=== PATIENT | male | born 1970 | race Caucasian/White ===

== ENCOUNTER 2017-06-21 10:17 | Inpatient (IN) | payer BC, OTHER ==
[~2017-06-21] VITALS: Ht 188 cm; Wt 87.8 kg
[2017-06-21] MEDS ORDERED: ONDANSETRON HCL INJ 2 MG/ML VIAL IV STA (10:36)
[2017-06-21] MEDS ORDERED: SODIUM CHLORIDE 0.9% 1000ML 1,000 ML IV STA (10:36)
[2017-06-21] MEDS ORDERED: MORPHINE SULFATE 4 MG/ML SYR IV STA (10:36)
[2017-06-21 10:49] LABS: BASOPHILS % 0.2 % (0.0-1.0); EOSINOPHILS % 0.4 % (0.0-6.0); HEMATOCRIT 29.4 % (38.2-49.6); HEMOGLOBIN 7.2 g/dL (14.0-18.0); LYMPHOCYTES # (AUTO) 0.9 (1.0-3.2); LYMPHOCYTES % 8.6 % (18.0-39.1); MEAN CORPUSCULAR HEMOGLOBIN 15.5 pg (28-32); MEAN CORPUSCULAR HGB CONC 24.5 g/dL (31-35); MEAN CORPUSCULAR VOLUME 63.2 fL (81-99); MONOCYTES # (AUTO) 1.5 (0.2-0.8); MONOCYTES % 13.9 % (4.4-11.3); NEUTROPHILS % 76.2 % (38.7-80.0); PLATELET COUNT 569 x10e3/uL (140-360); RED BLOOD COUNT 4.65 x10e6/uL (4.3-5.7); RED CELL DISTRIBUTION WIDTH 24.2 % (11.7-14.4)
[2017-06-21 10:55] LABS: INR 1.12
[2017-06-21] MEDS ORDERED: DIATRIZOATE MEGL/DIATRIZOA SOD 30 ML BTL PO ONE (11:00)
[2017-06-21 11:02] LABS: ALANINE AMINOTRANSFERASE 25 IU/L (0-55); ALBUMIN 2.5 g/dL (3.5-5.0); ALBUMIN/GLOBULIN RATIO 0.6 (0.8-2.0); ALKALINE PHOSPHATASE 80 IU/L (40-150); ANION GAP 14.1 mmol/L (8-16); BLOOD UREA NITROGEN 16 mg/dL (7-26); BUN/CREATININE RATIO 17 (6-25); CALCIUM 8.1 mg/dL (8.4-10.2); CARBON DIOXIDE 23 mmol/L (22-29); CHLORIDE 99 mmol/L (98-107); CREATININE, SERUM 0.95 mg/dL (0.72-1.25); EST GLOMERULAR FILTRATION RATE > 60 ML/MIN (60-); GLUCOSE 104 mg/dL (74-118); LIPASE 5 U/L (8-78); POTASSIUM 4.1 mmol/L (3.5-5.1); SODIUM 132 mmol/L (136-145)
[2017-06-21] MEDS ORDERED: PIPER-TAZ 3.375 GM 50 ML IV STA (11:39)
[2017-06-21] MEDS ORDERED: MORPHINE SULFATE 5 MG/ML VIAL IV SCH (12:30)
--- NOTE | 2017-06-21 12:56 | Diagnostic Imaging Report ---
EXAM: CT Abdomen and Pelvis WITH contrast INDICATION: \S\abdominal pain, diverticulitis \[id number] \S\1203 \S\N COMPARISON: None available. TECHNIQUE: Abdomen and pelvis were scanned utilizing a multidetector helical scanner from the lung base to the pubic symphysis after administration of IV contrast. Coronal and sagittal reformations were obtained. Routine protocol was performed. Scan was performed when during portal venous phase. IV CONTRAST: 100 mL of Isovue-370 ORAL CONTRAST: Gastroview COMPLICATIONS: None RADIATION DOSE: Total DLP: 554.32 mGy*cm Estimated effective dose: (DLP x 0.015 x size factor) mSv CTDIvol has been reviewed. It is below the limits set by the Radiation Protocol Committee (RPC). FINDINGS: LINES and TUBES: None. LOWER THORAX: Bibasilar atelectasis. Trace pericardial fluid. HEPATOBILIARY: 0.9 cm left hepatic lobe cyst. No focal hepatic lesions. No biliary ductal dilation. GALLBLADDER: No radio-opaque stones or sludge. No wall thickening. SPLEEN: Splenomegaly. PANCREAS: No focal masses or ductal dilatation. ADRENALS: No adrenal nodules KIDNEYS/URETERS: Kidneys enhance symmetrically. No hydronephrosis. No cystic or solid mass lesions. No stones. GI TRACT: Significant distention of the entire colon with loss of haustral markings, measuring up to 8.3 cm with abrupt narrowing at the high rectal area (series 2, image 80). The remainder of the rectum also shows wall thickening. Small hiatal hernia with contrast in distal esophagus, suggestive of gastroesophageal reflux. PELVIC ORGANS/BLADDER: Unremarkable. LYMPH NODES: Prominent retroperitoneal lymph nodes. For example 1.1 cm and 1.2 cm left para-aortic lymph nodes (series 2, images 43 and 45). There are also enlarged peripancreatic lymph nodes, measuring up to 1.1 cm (series 2, image 35). Multiple mesorectal/presacral lymph nodes, the largest measuring 1.3 cm (series 2, image 75 and series 301 image 73). VESSELS: Unremarkable. PERITONEUM / RETROPERITONEUM: No free air. Trace abdominal ascites. BONES: Bilateral L5 pars defects with grade 1 L5-S1 spondylolisthesis. SOFT TISSUES: Unremarkable. IMPRESSION: 1. Significant distention of entire colon with narrowing at the high rectal area. Differentials include toxic megacolon (considering history of inflammatory bowel disease), colonic ileus, and partial obstruction from rectal mass. There is rectal wall thickening and suspected mesorectal and retroperitoneal lymph nodes. 2. Trace abdominal ascites and pericardial effusion. Findings discussed with Dr. Hu at 12:50 PM, on 06/21/2017. Signed by: Dr. William Grande MD on 06/21/2017 12:53 PM
[2017-06-21] MEDS ORDERED: IOPAMIDOL 370 MG/ML 200 ML INFUS..BTL INJ ONE (13:47)
[2017-06-21] MEDS ORDERED: SODIUM CHLORIDE 0.9% 50ML 50 ML ONE (13:47)
[2017-06-21] MEDS ORDERED: MORPHINE SULFATE 5 MG/ML VIAL IV ONE (14:00)
[2017-06-21] MEDS ORDERED: MORPHINE SULFATE 2 MG/ML SYR IV PRN (14:15)
[2017-06-21] MEDS ORDERED: PROMETHAZINE HCL (IM) 25 MG/ML VIAL IV PRN (14:15)
[2017-06-21] MEDS ORDERED: SODIUM CHLORIDE FLUSH 10 ML SYR INJ PRN (14:15)
[2017-06-21] MEDS ORDERED: MORPHINE SULFATE 5 MG/ML VIAL IV PRN (14:30)
[2017-06-21] MEDS ORDERED: SODIUM CHLORIDE 0.9% 100 ML 100 ML ONE (17:28)
[2017-06-21] MEDS: METRONIDAZOLE 500MG/NS 100ML 100 ML IV SCH (17:52)
[2017-06-21] MEDS: SODIUM CHLORIDE 0.9% 1000ML 1,000 ML IV SCH (17:52)
[2017-06-21] MEDS: METHYLPREDNISOLONE SOD SUCC 40 MG/ML VIAL IV SCH (17:52)
[2017-06-21] MEDS ORDERED: PEG (High)/E-LYTE SOLN 4,000 ML BTL PO NR (18:00)
[2017-06-21 18:01] LABS: BILIRUBIN,URINE NEGATIVE (NEGATIVE); KETONES,URINE TRACE (NEGATIVE); LEUKOCYTE ESTERASE ,URINE NEGATIVE (NEGATIVE); NITRITE,URINE NEGATIVE (NEGATIVE); PROTEIN,URINE DIPSTICK NEGATIVE (NEGATIVE); URINE UROBILINOGEN 0.2 mg/dL (0.2 - 1)
[2017-06-21 18:02] LABS: CLARITY,URINE CLEAR (CLEAR); COLOR,URINE STRAW (YELLOW)
[2017-06-21] MEDS: CIPROFLOXACIN 400 MG/D5W 200ML 200 ML IV SCH (18:36)
--- NOTE | 2017-06-21 20:49 | Consultation ---
DATE OF CONSULTATION: June 21, 2017 GASTROENTEROLOGY CONSULTATION REFERRING PHYSICIAN: Dr. Hu REASON FOR CONSULTATION: Colitis, abnormal CT of colon. HISTORY OF PRESENT ILLNESS: Mr. Miller is a very pleasant 47-year-old man with longstanding history of ulcerative colitis. He previously followed with Dr. Galan and was last seen in 2013. At that time, he had a colonoscopy, which could not pass roughly 50 cm due to a stricture. Biopsies were concerning for possible high-grade dysplasia. He was referred for colectomy. He says he saw oncologist, as well as a colorectal surgeon and they recommended monitoring as a possibility per his report. Since then, he has been off of medications and has not followed up with his manufacturing quality manager. He has been managing just by diet. He reports his baseline is usually 3 to 4 stools daily, but he has never had blood in his stool. His abdomen became swollen for 3 days the 1st week of April, but resumed its normal habitus spontaneously. He was doing well per his report until roughly a week ago. Last week, his abdomen became swollen. He had developed some lower abdominal pain, which was mild roughly 3 to 4 out of 10 on the pain scale. He says he did not feel pain acutely. He has been eating very little and has been having fewer bowel movements well. Stools are liquid. Still passes gas. He thinks he has lost weight maybe about 10 lbs in the past week. He denies any fevers, chills or sweats. He has not been having any significant diarrhea. He, otherwise, has been in his usual self without any extra intestinal manifestations of inflammatory bowel disease. PAST MEDICAL HISTORY: Ulcerative colitis diagnosed when he was 17. He believed at first it was limited to the left side and then, later became pancolitis. He has been on prednisone, Asacol, and Rowasa enemas in the past, but nothing since 2013. He is near sighted. 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 SOCIAL HISTORY: No alcohol, tobacco or illicit substance use. 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 FAMILY HISTORY: Positive for breast cancer in his mother and as well as some sort of digestive issue in a great aunt. MEDICATION AND ALLERGIES: Reviewed. Please see MAR medication reconciliation form. REVIEW OF SYSTEMS: Twelve-system review is positive for that mentioned in HPI, otherwise unremarkable. PHYSICAL EXAM GENERAL: He is pleasant, alert, oriented, in no acute distress. HEENT: Pupils equal, round, reactive to light. NECK: Supple. LUNGS: Clear. CARDIOVASCULAR: S1 S2. ABDOMEN: Soft. Mildly distended. He has some high-pitched tinkling sounds. He is a little bit tender in the lower abdomen, particularly on the left lower quadrant, but there is no rebound, guarding or mass. EXTREMITIES: No clubbing, cyanosis or edema. PSYCH: Calm, cooperative. NEUROLOGIC: Nonfocal. HEM/ONC: No bruising or adenopathy. Electronic health records reviewed for laboratory and radiologic studies as well as history. ASSESSMENT 1. It appears to be a proximal rectal or distal sigmoid strictures, likely the one that was encountered on previous colonoscopy. Question is how much of this is related to inflammatory status, fibrostenotic scar tissue or even underlying malignancy given the history of high-grade dysplasia. His presentation does not seem to be that of Clostridium difficile or toxic megacolon. It is probably a more chronic progressive obstruction. At the current time, will go ahead and place him on antibiotics, as well as steroids to decrease any inflammation that may be related and responsive from the ulcerative colitis. He will need a colonoscopy. If he can tolerate a slow bowel prep over a couple of days would be ideal. Will plan for Dr. Monroy to follow with us. Additionally, will go ahead and check inflammatory markers and stool studies. If he is not passing sufficient stools and gas will need to be NPO with just enema prep. 2. Anemia, microcytic: I suspect he has iron-deficiency anemia. Will check iron studies. He may need IV replacement. Thank you very much for asking me to see Mr. Miller. Any questions or concerns, please do not hesitate to contact me. Will follow with you. Job#: [id number] CQ MTDD
[2017-06-21 21:19] VITALS: BP 150/84
[2017-06-21 21:27] VITALS: BP 150/84
[2017-06-21] MEDS: PIPER-TAZ 3.375 GM 50 ML IV SCH (21:50)
[2017-06-21 22:30] VITALS: BP 131/81
[2017-06-22] VITALS (9 sets, daily range): BP systolic 131–156; BP diastolic 69–82
[2017-06-22] MEDS: METRONIDAZOLE 500MG/NS 100ML 100 ML IV SCH ×3 (00:40→17:02)
[2017-06-22] MEDS: METHYLPREDNISOLONE SOD SUCC 40 MG/ML VIAL IV SCH ×5 (00:40→23:45)
[2017-06-22] MEDS: SODIUM CHLORIDE 0.9% 1000ML 1,000 ML IV SCH ×4 (03:37→22:05)
[2017-06-22] MEDS: CIPROFLOXACIN 400 MG/D5W 200ML 200 ML IV SCH ×2 (04:37→17:15)
[2017-06-22] MEDS: PIPER-TAZ 3.375 GM 50 ML IV SCH ×3 (06:12→21:37)
[2017-06-22 06:23] LABS: BASOPHILS % 0.2 % (0.0-1.0); EOSINOPHILS % 0.5 % (0.0-6.0); HEMATOCRIT 22.5 % (38.2-49.6); LYMPHOCYTES # (AUTO) 0.8 (1.0-3.2); LYMPHOCYTES % 12.7 % (18.0-39.1); MEAN CORPUSCULAR HEMOGLOBIN 15.6 pg (28-32); MEAN CORPUSCULAR HGB CONC 24.9 g/dL (31-35); MEAN CORPUSCULAR VOLUME 62.8 fL (81-99); MONOCYTES # (AUTO) 1.3 (0.2-0.8); MONOCYTES % 19.6 % (4.4-11.3); NEUTROPHILS # (AUTO) 4.3 (2.1-6.9); NEUTROPHILS % 66.5 % (38.7-80.0); PLATELET COUNT 376 x10e3/uL (140-360); RED BLOOD COUNT 3.58 x10e6/uL (4.3-5.7); RED CELL DISTRIBUTION WIDTH 23.3 % (11.7-14.4)
[2017-06-22 06:26] LABS: HEMOGLOBIN 5.6 g/dL (14.0-18.0)
[2017-06-22 06:49] LABS: ALANINE AMINOTRANSFERASE 24 IU/L (0-55); ALBUMIN 1.8 g/dL (3.5-5.0); ALBUMIN/GLOBULIN RATIO 0.6 (0.8-2.0); ALKALINE PHOSPHATASE 69 IU/L (40-150); ANION GAP 13.2 mmol/L (8-16); BLOOD UREA NITROGEN 14 mg/dL (7-26); BUN/CREATININE RATIO 18 (6-25); CALCIUM 7.5 mg/dL (8.4-10.2); CARBON DIOXIDE 21 mmol/L (22-29); CHLORIDE 104 mmol/L (98-107); CREATININE, SERUM 0.77 mg/dL (0.72-1.25); EST GLOMERULAR FILTRATION RATE > 60 ML/MIN (60-); GLUCOSE 103 mg/dL (74-118); POTASSIUM 4.2 mmol/L (3.5-5.1); SODIUM 134 mmol/L (136-145)
[2017-06-22 06:59] LABS: HEMOGLOBIN 5.7 g/dL (14.0-18.0)
[2017-06-22 07:17] LABS: % IRON SATURATION 4 % (15-50); IRON 8 ug/dL (65-175); TOTAL IRON BINDING CAPACITY 179 ug/dL (261-478); TRANSFERRIN 128 mg/dL (174-364)
[2017-06-22 07:36] LABS: FERRITIN 7.98 ng/mL (21.81-274.66)
--- NOTE | 2017-06-22 07:44 | Diagnostic Imaging Report ---
PROCEDURE:X-RAY ABDOMEN - KUB COMPARISON:CT abdomen and pelvis 06/21/2017. INDICATIONS:ABDOMINAL PAIN FINDINGS: Dilated fluid filled loops of colon. No air is present in the rectum. There are no calcifications projected over the renal shadows, expected course of the ureters or bladder. There are no acute osseous abnormalities. The lung bases are clear. CONCLUSION: Dilated fluid filled loops of colon may represent a distal colon obstruction. Dictated by: Maximo Watts M.D. on 06/22/2017 at 7:53 Electronically approved by: Maximo Watts M.D. on 06/22/2017 at 7:53
[2017-06-22 07:53] LABS: BAND NEUTROPHILS % (MANUAL) 8 %; EOSINOPHILS % (MANUAL) 1 % (0-7); LYMPHOCYTES % (MANUAL) 9 % (19-48); MONOCYTES % (MANUAL) 17 % (3.4-9.0); NEUTROPHILS % (MANUAL) 63 % (40-74)
[2017-06-22 07:54] LABS: ANISOCYTOSIS MODERATE; ELLIPTOCYTE, RBC SLIGHT; HYPOCHROMASIA MODERATE; PLATELET ESTIMATE ADEQUATE; RBC MORPHOLOGY COMMENT ABNORMAL
[2017-06-22 07:55] LABS: PLATELET MORPHOLOGY COMMENT FEW GIANT; POIKILOCYTOSIS SLIGHT
[2017-06-22] MEDS ORDERED: FAMOTIDINE INJ 20 MG in SODIUM CHLORIDE 0.9% 50ML 50 ML IV ONE (08:45)
[2017-06-22] MEDS ORDERED: DEXAMETHASONE PHOS 10MG INJ 20 MG in SODIUM CHLORIDE 0.9% 50ML 50 ML IV ONE (08:45)
[2017-06-22] MEDS ORDERED: IRON DEXTRAN INJ 50 MG in SODIUM CHLORIDE 0.9% 100 ML IV ONE (08:45)
[2017-06-22] MEDS ORDERED: DIPHENHYDRAMINE HCL INJ 25 MG in SODIUM CHLORIDE 0.9% 50ML 50 ML IV ONE (08:45)
[2017-06-22] MEDS ORDERED: IRON DEXTRAN INJ 500 MG in SODIUM CHLORIDE 0.9% 500ML 500 ML IV PRN (08:45)
[2017-06-22] MEDS ORDERED: ACETAMINOPHEN 325 MG TAB PO PRN (15:30)
[2017-06-23] VITALS (8 sets, daily range): BP systolic 137–151; BP diastolic 73–84
[2017-06-23] MEDS: METRONIDAZOLE 500MG/NS 100ML 100 ML IV SCH ×3 (00:06→16:40)
[2017-06-23] MEDS ORDERED: SODIUM CHLORIDE 0.9% 250ML 250 ML ONE (00:51)
[2017-06-23] MEDS: CIPROFLOXACIN 400 MG/D5W 200ML 200 ML IV SCH ×2 (05:15→16:40)
[2017-06-23] MEDS: METHYLPREDNISOLONE SOD SUCC 40 MG/ML VIAL IV SCH ×3 (05:24→18:38)
[2017-06-23] MEDS: SODIUM CHLORIDE 0.9% 1000ML 1,000 ML IV SCH ×2 (06:05→14:05)
[2017-06-23] MEDS: PIPER-TAZ 3.375 GM 50 ML IV SCH ×3 (06:09→21:02)
[2017-06-23 07:37] LABS: BASOPHILS % 0.2 % (0.0-1.0); EOSINOPHILS % 0.3 % (0.0-6.0); HEMATOCRIT 25.5 % (38.2-49.6); LYMPHOCYTES # (AUTO) 0.6 (1.0-3.2); LYMPHOCYTES % 8.6 % (18.0-39.1); MEAN CORPUSCULAR HEMOGLOBIN 17.3 pg (28-32); MEAN CORPUSCULAR HGB CONC 25.9 g/dL (31-35); MEAN CORPUSCULAR VOLUME 66.9 fL (81-99); MONOCYTES # (AUTO) 0.8 (0.2-0.8); MONOCYTES % 12.6 % (4.4-11.3); NEUTROPHILS % 77.1 % (38.7-80.0); PLATELET COUNT 342 x10e3/uL (140-360); RED BLOOD COUNT 3.81 x10e6/uL (4.3-5.7); RED CELL DISTRIBUTION WIDTH 25.8 % (11.7-14.4)
[2017-06-23 07:47] LABS: ANION GAP 11.6 mmol/L (8-16); BLOOD UREA NITROGEN 13 mg/dL (7-26); BUN/CREATININE RATIO 16 (6-25); CARBON DIOXIDE 20 mmol/L (22-29); CHLORIDE 107 mmol/L (98-107); CREATININE, SERUM 0.83 mg/dL (0.72-1.25); EST GLOMERULAR FILTRATION RATE > 60 ML/MIN (60-); GLUCOSE 113 mg/dL (74-118); POTASSIUM 4.6 mmol/L (3.5-5.1); SODIUM 134 mmol/L (136-145)
[2017-06-23 08:10] LABS: HEMOGLOBIN 6.6 g/dL (14.0-18.0)
[2017-06-23 09:33] LABS: HEMATOCRIT 24.7 % (38.2-49.6); HEMOGLOBIN 6.5 g/dL (14.0-18.0)
[2017-06-23 09:58] LABS: HYPOCHROMASIA MODERATE; PLATELET ESTIMATE ADEQUATE; PLATELET MORPHOLOGY COMMENT FEW LARGE
[2017-06-23 09:59] LABS: ANISOCYTOSIS MODERATE; ELLIPTOCYTE, RBC SLIGHT; HOWELL-JOLLY BODIES FEW; RBC MORPHOLOGY COMMENT ABNORMAL
--- NOTE | 2017-06-23 10:53 | Consultation ---
DATE OF CONSULTATION: June 22, 2017 CONSULTATION TO: Dr. Rj Galan. HISTORY OF PRESENT ILLNESS: Mr. Miller is a 47-year-old white male who has been referred to me for evaluation of anemia. The patient had presented with abdominal pain and distention, subsequently was seen by Dr. Eduardo. Was found to be very anemic. History of ulcerative colitis. Dr. Orlando Galan had followed him, the last was in 2013. The patient subsequently was sent to me on 12/21/2013. The patient was found to have an adenoma high-grade dysplasia when he had a colonoscopy on 11/17/2013. The findings were also of ulcerative colitis, descending colon stricture, large pseudopolyps, ulcerative left colon, and ulcerative proctitis. The biopsy were obtained. The patient at that time was treated with Asacol, Canasa, and Levaquin. The patient at that time had rectal bleed and diarrhea. Subsequently, all the records provided by Dr. Orlando Galan were reviewed. The patient was suggested "agree completely with the colorectal surgeon that a total colectomy is warranted in a setting of ulcerative colitis since age 17." Psychologically, it is hard for him to accept the drastic change in his lifestyle. He wants a surveillance colonoscopy in 3 months "to wrap my head around what is coming." Prolonged discussion was carried out. Encouraged him to read more above the disease process to understand the recommendations of the physicians. The patient was suggested to see me back after seeing the surgeon in 6 months. However the patient never came back. REVIEW OF SYSTEMS HEENT: Normal. CARDIAC: Normal. RESPIRATORY: Normal. GI: History of ulcerative colitis, history of a polyp with high-grade dysplasia discovered in 2013, lost for followup from 12/21/2013 until he lands up here. : Normal. MUSCULOSKELETAL: Normal. SKIN: Normal. BREASTS: Normal. NEUROENDOCRINE: Normal. HEMATOLOGY: The patient is very anemic at this time. PHYSICAL EXAMINATION GENERAL: Moderately built male, very anemic. NECK: No palpable adenopathy. HEART: Within normal limits. LUNGS: Clear. ABDOMEN: Distended. RECTAL: Exam deferred. CENTRAL NERVOUS SYSTEM: Essentially normal. EXTREMITIES: Essentially normal. LABORATORY DATA: Lab investigations of interest which showed a hemoglobin of 7.2, hematocrit 29.4, white count 10,500, platelets were reported high at 559,000, MCV 63.2, MCHC 24.5, and RDW high at 24.2. Chemistry shows a sodium of 134, potassium 4.2, chloride 104, CO2 21, BUN 14, creatinine 0.7, calcium low at 7.5, iron low at 8, iron binding capacity low at 179, saturation low at 14, transferrin 128 low, and ferritin low at 7.98. Total protein is 5. Albumin low at 1.8. Globulin 3.2. IMAGING: The patient had imaging CAT scan of the abdomen and pelvis is not much different from the one I have in my records from 12/19/2013. The patient has significant distention of the entire colon with narrowing the high rectal area. It is contemplated that this could be because off partial obstruction from a rectal mass, rectal thickening, suspected mesorectal and retroperitoneal lymph nodes, trace abdominal ascites, and pericardial effusion. There was an abrupt narrowing at the high rectal area according to Dr. William Grande, this is dated 06/21/2017. IMPRESSION 1. History of ulcerative colitis. 2. Distention of colon, possible stricture, rule out malignancy. 3. History of dysplastic changes in colon in the past. 4. Retroperitoneal paraaortic peripancreatic mesorectal presacral adenopathy. 5. Rectal wall thickening. 6. Abdominal ascites. 7. Pericardial effusion. 8. Iron deficiency anemia. 9. Hypoalbuminemia. 10. Hypocalcemia. PLAN, COMMENTS, AND SUGGESTIONS: Suggest colonoscopy. Suggest biopsy. Suggest blood . Suggest INFeD, surgical consultation, and tumor markers. Job#: [id number] SAK cc:Dr. Orlando Monroy
[2017-06-23 16:15] LABS: HEMATOCRIT 29.3 % (38.2-49.6)
[2017-06-23 16:19] LABS: HEMOGLOBIN 7.7 g/dL (14.0-18.0)
[2017-06-23] MEDS ORDERED: MIDAZOLAM HCL 2 MG/2 ML VIAL ONE (20:09)
[2017-06-23] MEDS ORDERED: FENTANYL CITRATE/PF 100MCG/2 ML INJ ONE (20:09)
[2017-06-23] MEDS ORDERED: ROCURONIUM BROMIDE 10 MG/ML 5ML VIAL ONE (20:13)
[2017-06-23] MEDS ORDERED: ONDANSETRON HCL INJ 2 MG/ML VIAL ONE (20:13)
[2017-06-23] MEDS ORDERED: DEXAMETHASONE SOD PHOS INJ 4 MG/ML VIAL ONE (20:13)
[2017-06-23] MEDS ORDERED: ISOFLURANE INHAL SOLN 250 ML BTL INH ONE (20:13)
[2017-06-23] MEDS ORDERED: PROPOFOL IV EMULSION 10 MG/ML 20 ML VIAL ONE (20:13)
[2017-06-23] MEDS ORDERED: LIDOCAINE HCL 2% LOCAL INJ 5 ML SDV VIAL INJ ONE (20:13)
[2017-06-23] MEDS ORDERED: SUCCINYLCHOLINE 200 MG/10 ML SYR ONE (20:13)
[2017-06-24] VITALS (7 sets, daily range): BP systolic 135–149; BP diastolic 76–85
[2017-06-24] MEDS: METHYLPREDNISOLONE SOD SUCC 40 MG/ML VIAL IV SCH ×4 (00:27→18:20)
[2017-06-24] MEDS: METRONIDAZOLE 500MG/NS 100ML 100 ML IV SCH ×3 (00:27→16:25)
[2017-06-24] MEDS: CIPROFLOXACIN 400 MG/D5W 200ML 200 ML IV SCH ×2 (04:06→16:25)
[2017-06-24] MEDS: SODIUM CHLORIDE 0.9% 1000ML 1,000 ML IV SCH ×4 (04:06→23:14)
[2017-06-24] MEDS: PIPER-TAZ 3.375 GM 50 ML IV SCH ×3 (05:53→21:29)
[2017-06-24 07:26] LABS: BASOPHILS % 0.1 % (0.0-1.0); EOSINOPHILS % 0.4 % (0.0-6.0); HEMATOCRIT 28.5 % (38.2-49.6); LYMPHOCYTES # (AUTO) 0.6 (1.0-3.2); LYMPHOCYTES % 9.2 % (18.0-39.1); MEAN CORPUSCULAR HEMOGLOBIN 18.4 pg (28-32); MEAN CORPUSCULAR HGB CONC 26.7 g/dL (31-35); MONOCYTES # (AUTO) 0.9 (0.2-0.8); MONOCYTES % 12.5 % (4.4-11.3); NEUTROPHILS # (AUTO) 5.3 (2.1-6.9); NEUTROPHILS % 76.6 % (38.7-80.0); PLATELET COUNT 318 x10e3/uL (140-360); RED BLOOD COUNT 4.13 x10e6/uL (4.3-5.7); RED CELL DISTRIBUTION WIDTH 27.1 % (11.7-14.4)
[2017-06-24 07:29] LABS: HEMOGLOBIN 7.6 g/dL (14.0-18.0)
[2017-06-24 08:56] LABS: ANISOCYTOSIS MODERATE; ELLIPTOCYTE, RBC MODERATE; HYPOCHROMASIA MODERATE; PLATELET ESTIMATE ADEQUATE; PLATELET MORPHOLOGY COMMENT FEW LARGE; RBC MORPHOLOGY COMMENT ABNORMAL
[2017-06-24] MEDS ORDERED: MORPHINE SULFATE 4 MG/ML SYR IV PRN (22:00)
[2017-06-25] VITALS (8 sets, daily range): BP systolic 132–149; BP diastolic 71–84
[2017-06-25] MEDS: METHYLPREDNISOLONE SOD SUCC 40 MG/ML VIAL IV SCH ×3 (00:21→21:10)
[2017-06-25] MEDS: METRONIDAZOLE 500MG/NS 100ML 100 ML IV SCH ×3 (00:22→18:15)
[2017-06-25] MEDS: CIPROFLOXACIN 400 MG/D5W 200ML 200 ML IV SCH ×2 (04:43→21:10)
[2017-06-25] MEDS: SODIUM CHLORIDE 0.9% 1000ML 1,000 ML IV SCH ×3 (06:05→22:34)
[2017-06-25] MEDS: PIPER-TAZ 3.375 GM 50 ML IV SCH ×3 (06:21→22:34)
[2017-06-25] MEDS ORDERED: DEXAMETHASONE PHOS 10MG INJ 20 MG in SODIUM CHLORIDE 0.9% 50ML 50 ML IV ONE (10:00)
[2017-06-25] MEDS ORDERED: IRON DEXTRAN INJ 50 MG in SODIUM CHLORIDE 0.9% 100 ML IV ONE (10:00)
[2017-06-25] MEDS ORDERED: FAMOTIDINE INJ 20 MG in SODIUM CHLORIDE 0.9% 50ML 50 ML IV ONE (10:00)
[2017-06-25] MEDS ORDERED: DIPHENHYDRAMINE HCL INJ 25 MG in SODIUM CHLORIDE 0.9% 50ML 50 ML IV ONE (10:00)
[2017-06-25] MEDS ORDERED: IRON DEXTRAN INJ 500 MG in SODIUM CHLORIDE 0.9% 500ML 500 ML IV PRN (10:00)
[2017-06-25] MEDS ORDERED: ZOLPIDEM TARTRATE 10 MG TAB PO PRN (19:30)
[2017-06-26] VITALS (8 sets, daily range): BP systolic 120–146; BP diastolic 74–90
[2017-06-26] MEDS: METRONIDAZOLE 500MG/NS 100ML 100 ML IV SCH ×3 (01:31→16:48)
[2017-06-26] MEDS: CIPROFLOXACIN 400 MG/D5W 200ML 200 ML IV SCH ×2 (05:30→17:56)
[2017-06-26] MEDS: SODIUM CHLORIDE 0.9% 1000ML 1,000 ML IV SCH ×2 (06:05→15:03)
[2017-06-26] MEDS: PIPER-TAZ 3.375 GM 50 ML IV SCH ×3 (06:46→21:23)
[2017-06-26] MEDS: METHYLPREDNISOLONE SOD SUCC 40 MG/ML VIAL IV SCH ×2 (08:58→21:23)
[2017-06-26 15:35] LABS: BASOPHILS % 0.2 % (0.0-1.0); EOSINOPHILS % 0.5 % (0.0-6.0); HEMOGLOBIN 8.3 g/dL (14.0-18.0); LYMPHOCYTES # (AUTO) 0.7 (1.0-3.2); LYMPHOCYTES % 11.6 % (18.0-39.1); MEAN CORPUSCULAR HEMOGLOBIN 18.4 pg (28-32); MEAN CORPUSCULAR HGB CONC 25.9 g/dL (31-35); MONOCYTES # (AUTO) 0.9 (0.2-0.8); MONOCYTES % 14.2 % (4.4-11.3); NEUTROPHILS # (AUTO) 4.4 (2.1-6.9); PLATELET COUNT 356 x10e3/uL (140-360); RED BLOOD COUNT 4.51 x10e6/uL (4.3-5.7); RED CELL DISTRIBUTION WIDTH 28.6 % (11.7-14.4)
[2017-06-26 16:32] LABS: MICROCYTOSIS MODE
[2017-06-26 16:33] LABS: SCHISTOCYTES FEW; TARGET CELLS FEW
[2017-06-26 16:34] LABS: ANISOCYTOSIS MODE; HYPOCHROMASIA MODE; PLATELET ESTIMATE ADEQUATE; POIKILOCYTOSIS SLIGHT; POLYCHROMASIA FEW; RBC MORPHOLOGY COMMENT ABNORMAL
[2017-06-26 16:35] LABS: PLATELET MORPHOLOGY COMMENT NORMAL
[2017-06-27] VITALS (8 sets, daily range): BP systolic 128–135; BP diastolic 74–83
[2017-06-27] MEDS: METRONIDAZOLE 500MG/NS 100ML 100 ML IV SCH ×3 (01:00→16:54)
[2017-06-27] MEDS: CIPROFLOXACIN 400 MG/D5W 200ML 200 ML IV SCH ×2 (05:50→17:59)
[2017-06-27] MEDS: SODIUM CHLORIDE 0.9% 1000ML 1,000 ML IV SCH ×3 (06:05→14:05)
[2017-06-27] MEDS: PIPER-TAZ 3.375 GM 50 ML IV SCH ×3 (06:47→21:35)
[2017-06-27] MEDS: METHYLPREDNISOLONE SOD SUCC 40 MG/ML VIAL IV SCH ×2 (09:05→21:35)
[2017-06-28] VITALS: BP 125/73
[2017-06-28] MEDS: METRONIDAZOLE 500MG/NS 100ML 100 ML IV SCH ×3 (00:19→16:09)
[2017-06-28] MEDS: SODIUM CHLORIDE 0.9% 1000ML 1,000 ML IV SCH ×4 (03:23→22:36)
[2017-06-28 04:00] VITALS: BP 118/69
[2017-06-28] MEDS: CIPROFLOXACIN 400 MG/D5W 200ML 200 ML IV SCH ×2 (04:49→16:12)
[2017-06-28] MEDS: PIPER-TAZ 3.375 GM 50 ML IV SCH ×3 (05:56→22:36)
[2017-06-28 08:00] VITALS: BP_SYST 140
[2017-06-28] MEDS: METHYLPREDNISOLONE SOD SUCC 40 MG/ML VIAL IV SCH ×2 (08:32→09:00)
[2017-06-28 12:00] VITALS: BP 132/77
[2017-06-28 16:00] VITALS: BP 134/78
[2017-06-28 20:00] VITALS: BP 135/83
[2017-06-29] VITALS: BP 125/79
[2017-06-29] MEDS: METRONIDAZOLE 500MG/NS 100ML 100 ML IV SCH ×3 (01:38→16:50)
[2017-06-29 04:00] VITALS: BP 130/80
[2017-06-29] MEDS: CIPROFLOXACIN 400 MG/D5W 200ML 200 ML IV SCH ×2 (04:58→17:45)
[2017-06-29] MEDS: SODIUM CHLORIDE 0.9% 1000ML 1,000 ML IV SCH ×3 (06:05→22:05)
[2017-06-29] MEDS: PIPER-TAZ 3.375 GM 50 ML IV SCH ×3 (06:08→22:55)
[2017-06-29 07:48] VITALS: BP 135/86
[2017-06-29] MEDS: METHYLPREDNISOLONE SOD SUCC 40 MG/ML VIAL IV SCH (08:59)
[2017-06-29 12:29] VITALS: BP 131/79
[2017-06-29] MEDS ORDERED: MORPHINE SULFATE 2 MG/ML SYR IV PRN (16:15)
[2017-06-29 16:57] VITALS: BP 134/81
[2017-06-29 20:00] VITALS: BP_SYST 125; BP_SYST 134; BP_DIAS 77; BP_DIAS 81
[2017-06-30] VITALS (34 sets, daily range): BP systolic 85–132; BP diastolic 58–85
[2017-06-30] MEDS: METRONIDAZOLE 500MG/NS 100ML 100 ML IV SCH ×3 (02:34→16:30)
[2017-06-30] MEDS: CIPROFLOXACIN 400 MG/D5W 200ML 200 ML IV SCH (04:41)
[2017-06-30] MEDS: SODIUM CHLORIDE 0.9% 1000ML 1,000 ML IV SCH ×2 (06:05→14:05)
[2017-06-30] MEDS: PIPER-TAZ 3.375 GM 50 ML IV SCH ×3 (06:18→22:45)
[2017-06-30] MEDS ORDERED: SODIUM CHLORIDE 0.9% 250ML 250 ML IV ONE (09:15)
[2017-06-30] MEDS: METHYLPREDNISOLONE SOD SUCC 40 MG/ML VIAL IV SCH (09:21)
[2017-06-30 09:37] LABS: BASOPHILS % 0.2 % (0.0-1.0); EOSINOPHILS # (AUTO) 0.1 (0.0-0.4); EOSINOPHILS % 1.1 % (0.0-6.0); HEMATOCRIT 33.6 % (38.2-49.6); LYMPHOCYTES # (AUTO) 0.6 (1.0-3.2); LYMPHOCYTES % 10.8 % (18.0-39.1); MEAN CORPUSCULAR HGB CONC 26.8 g/dL (31-35); MEAN CORPUSCULAR VOLUME 74.7 fL (81-99); MONOCYTES # (AUTO) 1.1 (0.2-0.8); MONOCYTES % 20.1 % (4.4-11.3); NEUTROPHILS # (AUTO) 3.8 (2.1-6.9); NEUTROPHILS % 67.4 % (38.7-80.0); PLATELET COUNT 330 x10e3/uL (140-360); RED CELL DISTRIBUTION WIDTH 32.3 % (11.7-14.4)
[2017-06-30 09:56] LABS: INR 1.19; PROTHROMBIN TIME 15.7 seconds (11.9-14.5)
[2017-06-30 10:01] LABS: ALANINE AMINOTRANSFERASE 9 IU/L (0-55); ALBUMIN/GLOBULIN RATIO 0.6 (0.8-2.0); ALKALINE PHOSPHATASE 39 IU/L (40-150); BLOOD UREA NITROGEN 9 mg/dL (7-26); BUN/CREATININE RATIO 11 (6-25); CALCIUM 7.7 mg/dL (8.4-10.2); CARBON DIOXIDE 24 mmol/L (22-29); CHLORIDE 107 mmol/L (98-107); CREATININE, SERUM 0.82 mg/dL (0.72-1.25); EST GLOMERULAR FILTRATION RATE > 60 ML/MIN (60-); GLUCOSE 91 mg/dL (74-118); SODIUM 136 mmol/L (136-145)
[2017-06-30] MEDS ORDERED: PIPER-TAZ 3.375 GM 50 ML ONE (13:52)
[2017-06-30] MEDS ORDERED: SEVOFLURANE INHAL SOLN 250 ML PEN BTL ONE (13:53)
[2017-06-30] MEDS ORDERED: HYDROCORTISONE SOD SUCCINATE 100 MG VIAL ONE (13:53)
[2017-06-30] MEDS ORDERED: ROCURONIUM BROMIDE 10 MG/ML 5ML VIAL ONE (13:53)
[2017-06-30] MEDS ORDERED: PHENYLEPHRINE HCL 1% 10 MG/ML VIAL ONE (13:53)
[2017-06-30] MEDS ORDERED: PROPOFOL IV EMULSION 10 MG/ML 20 ML VIAL ONE (13:53)
[2017-06-30] MEDS ORDERED: LIDOCAINE HCL 2% LOCAL INJ 5 ML SDV VIAL INJ ONE (13:53)
[2017-06-30] MEDS ORDERED: NALOXONE HCL INJ 0.4 MG/ML AMP IV PRN (16:30)
[2017-06-30] MEDS: SODIUM CHLORIDE 0.9% 250ML IRRIG IR SCH ×2 (16:30→20:10)
[2017-06-30] MEDS: ACETAMINOPHEN 1000 MG/100 ML IV PRN (17:26)
[2017-06-30] MEDS ORDERED: FENTANYL CITRATE/PF 100MCG/2 ML INJ ONE (18:54)
[2017-06-30] MEDS ORDERED: MIDAZOLAM HCL 2 MG/2 ML VIAL ONE (18:54)
[2017-06-30] MEDS: PANTOPRAZOLE 40 MG 10ML VIAL IV SCH (18:56)
[2017-06-30] MEDS: DEXTROSE 5%/LACTATED RINGERS 1,000 ML IV SCH (20:49)
[2017-06-30] MEDS ORDERED: LACTATED RINGER'S 500 ML IV ONE (22:45)
[2017-06-30] MEDS ORDERED: SODIUM CHLORIDE 0.9% 250ML 250 ML ONE (22:58)
[2017-07-01] VITALS (32 sets, daily range): BP systolic 86–122; BP diastolic 65–80
[2017-07-01 00:07] LABS: BASOPHILS # (AUTO) 0.1 (0.0-0.1); BASOPHILS % 0.3 % (0.0-1.0); HEMATOCRIT 38.3 % (38.2-49.6); HEMOGLOBIN 11.1 g/dL (14.0-18.0); LYMPHOCYTES # (AUTO) 0.8 (1.0-3.2); MEAN CORPUSCULAR HEMOGLOBIN 23.1 pg (28-32); MEAN CORPUSCULAR VOLUME 79.6 fL (81-99); MONOCYTES # (AUTO) 1.4 (0.2-0.8); MONOCYTES % 5.4 % (4.4-11.3); NEUTROPHILS # (AUTO) 24.1 (2.1-6.9); NEUTROPHILS % 90.5 % (38.7-80.0); PLATELET COUNT 338 x10e3/uL (140-360); RED BLOOD COUNT 4.81 x10e6/uL (4.3-5.7); RED CELL DISTRIBUTION WIDTH 30.1 % (11.7-14.4)
[2017-07-01 00:14] LABS: ALBUMIN 1.4 g/dL (3.5-5.0); ALBUMIN/GLOBULIN RATIO 0.6 (0.8-2.0); ANION GAP 12.8 mmol/L (8-16); CREATININE, SERUM 1.46 mg/dL (0.72-1.25); POTASSIUM 4.8 mmol/L (3.5-5.1)
[2017-07-01] MEDS: HYDROMORPHONE 0.2MG/ML-SOD CHL 30ML PCA SYRINGE IV PRN ×2 (00:29→09:00)
[2017-07-01] MEDS: SODIUM CHLORIDE 0.9% 250ML IRRIG IR SCH ×6 (00:52→20:40)
[2017-07-01] MEDS: METRONIDAZOLE 500MG/NS 100ML 100 ML IV SCH ×2 (00:52→08:51)
[2017-07-01] MEDS: ACETAMINOPHEN 1000 MG/100 ML IV PRN (00:53)
[2017-07-01] MEDS: DEXTROSE 5%/LACTATED RINGERS 1,000 ML IV SCH ×3 (02:40→22:00)
[2017-07-01 06:00] LABS: BASOPHILS % 0.2 % (0.0-1.0); EOSINOPHILS % 0.1 % (0.0-6.0); HEMATOCRIT 38.2 % (38.2-49.6); HEMOGLOBIN 11.1 g/dL (14.0-18.0); LYMPHOCYTES # (AUTO) 1.3 (1.0-3.2); LYMPHOCYTES % 6.3 % (18.0-39.1); MEAN CORPUSCULAR HGB CONC 29.1 g/dL (31-35); MEAN CORPUSCULAR VOLUME 79.3 fL (81-99); MONOCYTES # (AUTO) 1.7 (0.2-0.8); MONOCYTES % 8.1 % (4.4-11.3); NEUTROPHILS # (AUTO) 17.5 (2.1-6.9); NEUTROPHILS % 84.9 % (38.7-80.0); PLATELET COUNT 310 x10e3/uL (140-360); RED BLOOD COUNT 4.82 x10e6/uL (4.3-5.7)
[2017-07-01] MEDS: PIPER-TAZ 3.375 GM 50 ML IV SCH ×2 (06:15→14:51)
[2017-07-01 06:27] LABS: ALANINE AMINOTRANSFERASE 8 IU/L (0-55); ALBUMIN 1.4 g/dL (3.5-5.0); ALBUMIN/GLOBULIN RATIO 0.5 (0.8-2.0); ALKALINE PHOSPHATASE 36 IU/L (40-150); ANION GAP 10.2 mmol/L (8-16); BLOOD UREA NITROGEN 14 mg/dL (7-26); BUN/CREATININE RATIO 12 (6-25); CALCIUM 7.1 mg/dL (8.4-10.2); CARBON DIOXIDE 20 mmol/L (22-29); CHLORIDE 110 mmol/L (98-107); CREATININE, SERUM 1.16 mg/dL (0.72-1.25); EST GLOMERULAR FILTRATION RATE > 60 ML/MIN (60-); GLUCOSE 142 mg/dL (74-118); POTASSIUM 4.2 mmol/L (3.5-5.1); SODIUM 136 mmol/L (136-145)
[2017-07-01 06:35] LABS: BAND NEUTROPHILS % (MANUAL) 3 %; LYMPHOCYTES % (MANUAL) 7 % (19-48); MONOCYTES % (MANUAL) 9 % (3.4-9.0); NEUTROPHILS % (MANUAL) 81 % (40-74)
[2017-07-01 06:36] LABS: ANISOCYTOSIS MODERATE; HYPOCHROMASIA MODERATE; MICROCYTOSIS MODERATE; PLATELET ESTIMATE ADEQUATE; PLATELET MORPHOLOGY COMMENT FEW LARGE; POIKILOCYTOSIS MODERATE; POLYCHROMASIA FEW; RBC MORPHOLOGY COMMENT ABNORMAL
[2017-07-01 06:37] LABS: SCHISTOCYTES RARE
[2017-07-01] MEDS: LORAZEPAM INJ 2 MG/ML VIAL IV PRN ×2 (13:27→20:40)
[2017-07-01] MEDS: PANTOPRAZOLE 40 MG 10ML VIAL IV SCH (16:20)
[2017-07-02] VITALS: BP 119/61
[2017-07-02] MEDS: SODIUM CHLORIDE 0.9% 250ML IRRIG IR SCH ×6 (00:15→21:43)
[2017-07-02 04:00] VITALS: BP 118/63
[2017-07-02] MEDS: DEXTROSE 5%/LACTATED RINGERS 1,000 ML IV SCH ×2 (06:35→17:10)
[2017-07-02 07:15] LABS: BASOPHILS % 0.1 % (0.0-1.0); EOSINOPHILS # (AUTO) 0.2 (0.0-0.4); HEMATOCRIT 31.6 % (38.2-49.6); LYMPHOCYTES # (AUTO) 0.7 (1.0-3.2); LYMPHOCYTES % 4.6 % (18.0-39.1); MEAN CORPUSCULAR HEMOGLOBIN 23.2 pg (28-32); MEAN CORPUSCULAR HGB CONC 29.1 g/dL (31-35); MEAN CORPUSCULAR VOLUME 79.8 fL (81-99); MONOCYTES # (AUTO) 1.8 (0.2-0.8); MONOCYTES % 11.1 % (4.4-11.3); NEUTROPHILS # (AUTO) 13.4 (2.1-6.9); NEUTROPHILS % 82.3 % (38.7-80.0); PLATELET COUNT 224 x10e3/uL (140-360); RED BLOOD COUNT 3.96 x10e6/uL (4.3-5.7); RED CELL DISTRIBUTION WIDTH 30.5 % (11.7-14.4)
[2017-07-02 07:19] LABS: ALANINE AMINOTRANSFERASE 6 IU/L (0-55); ALBUMIN 1.3 g/dL (3.5-5.0); ALBUMIN/GLOBULIN RATIO 0.5 (0.8-2.0); ALKALINE PHOSPHATASE 47 IU/L (40-150); ANION GAP 8.9 mmol/L (8-16); BLOOD UREA NITROGEN 10 mg/dL (7-26); BUN/CREATININE RATIO 14 (6-25); CALCIUM 7.7 mg/dL (8.4-10.2); CARBON DIOXIDE 24 mmol/L (22-29); CHLORIDE 106 mmol/L (98-107); CREATININE, SERUM 0.69 mg/dL (0.72-1.25); EST GLOMERULAR FILTRATION RATE > 60 ML/MIN (60-); GLUCOSE 102 mg/dL (74-118); POTASSIUM 3.9 mmol/L (3.5-5.1); SODIUM 135 mmol/L (136-145)
[2017-07-02 07:36] LABS: HEMOGLOBIN 9.2 g/dL (14.0-18.0)
[2017-07-02 08:05] VITALS: BP 118/64
[2017-07-02] MEDS: LORAZEPAM INJ 2 MG/ML VIAL IV PRN ×3 (08:44→23:57)
[2017-07-02] MEDS: HYDROMORPHONE 0.2MG/ML-SOD CHL 30ML PCA SYRINGE IV PRN (09:56)
[2017-07-02 13:39] VITALS: BP 117/64
[2017-07-02 16:39] VITALS: BP 129/76
[2017-07-02] MEDS: PANTOPRAZOLE 40 MG 10ML VIAL IV SCH (16:52)
[2017-07-02 20:00] VITALS: BP 126/73
[2017-07-03] VITALS (7 sets, daily range): BP systolic 119–138; BP diastolic 61–80
[2017-07-03] MEDS: HYDROMORPHONE 0.2MG/ML-SOD CHL 30ML PCA SYRINGE IV PRN (01:00)
[2017-07-03] MEDS: SODIUM CHLORIDE 0.9% 250ML IRRIG IR SCH ×5 (01:30→16:30)
[2017-07-03] MEDS: DEXTROSE 5%/LACTATED RINGERS 1,000 ML IV SCH ×3 (01:41→20:29)
[2017-07-03] MEDS: LORAZEPAM INJ 2 MG/ML VIAL IV PRN ×3 (06:24→18:40)
[2017-07-03 08:18] LABS: BASOPHILS % 0.1 % (0.0-1.0); EOSINOPHILS # (AUTO) 0.2 (0.0-0.4); EOSINOPHILS % 1.3 % (0.0-6.0); HEMATOCRIT 30.8 % (38.2-49.6); LYMPHOCYTES # (AUTO) 0.6 (1.0-3.2); LYMPHOCYTES % 4.9 % (18.0-39.1); MEAN CORPUSCULAR HEMOGLOBIN 23.4 pg (28-32); MEAN CORPUSCULAR HGB CONC 29.2 g/dL (31-35); MEAN CORPUSCULAR VOLUME 80.2 fL (81-99); MONOCYTES % 8.5 % (4.4-11.3); NEUTROPHILS # (AUTO) 9.7 (2.1-6.9); NEUTROPHILS % 83.2 % (38.7-80.0); PLATELET COUNT 187 x10e3/uL (140-360); RED BLOOD COUNT 3.84 x10e6/uL (4.3-5.7); RED CELL DISTRIBUTION WIDTH 30.1 % (11.7-14.4)
[2017-07-03 08:44] LABS: ALANINE AMINOTRANSFERASE 6 IU/L (0-55); ALBUMIN 1.2 g/dL (3.5-5.0); ALBUMIN/GLOBULIN RATIO 0.4 (0.8-2.0); ALKALINE PHOSPHATASE 48 IU/L (40-150); ANION GAP 7.5 mmol/L (8-16); BLOOD UREA NITROGEN 7 mg/dL (7-26); BUN/CREATININE RATIO 11 (6-25); CALCIUM 7.5 mg/dL (8.4-10.2); CARBON DIOXIDE 26 mmol/L (22-29); CHLORIDE 104 mmol/L (98-107); CREATININE, SERUM 0.64 mg/dL (0.72-1.25); EST GLOMERULAR FILTRATION RATE > 60 ML/MIN (60-); GLUCOSE 88 mg/dL (74-118); POTASSIUM 3.5 mmol/L (3.5-5.1); SODIUM 134 mmol/L (136-145)
[2017-07-03 10:13] LABS: LYMPHOCYTES % (MANUAL) 5 % (19-48); MONOCYTES % (MANUAL) 10 % (3.4-9.0); NEUTROPHILS % (MANUAL) 85 % (40-74); PLATELET ESTIMATE ADEQUATE; PLATELET MORPHOLOGY COMMENT NORMAL; RBC MORPHOLOGY COMMENT NORMAL
[2017-07-03] MEDS: PANTOPRAZOLE 40 MG 10ML VIAL IV SCH (17:26)
[2017-07-04] VITALS: BP 130/78
[2017-07-04 00:05] VITALS: BP 130/78
[2017-07-04] MEDS: LORAZEPAM INJ 2 MG/ML VIAL IV PRN ×4 (00:30→23:35)
[2017-07-04 04:00] VITALS: BP 124/77
[2017-07-04] MEDS: DEXTROSE 5%/LACTATED RINGERS 1,000 ML IV SCH ×2 (05:01→22:52)
[2017-07-04] MEDS: HYDROMORPHONE 0.2MG/ML-SOD CHL 30ML PCA SYRINGE IV PRN (05:02)
[2017-07-04 14:05] VITALS: BP 132/81
[2017-07-04] MEDS: PANTOPRAZOLE 40 MG 10ML VIAL IV SCH (16:51)
[2017-07-04] MEDS: HYDROMORPHONE 2MG/ML INJ IV PRN ×2 (18:12→21:37)
[2017-07-04 20:00] VITALS: BP 139/88
[2017-07-04 20:05] VITALS: BP 139/88
[2017-07-05] VITALS (7 sets, daily range): BP systolic 119–141; BP diastolic 79–91
[2017-07-05] MEDS: HYDROMORPHONE 2MG/ML INJ IV PRN ×2 (00:30→03:33)
[2017-07-05] MEDS: HYDROCODONE/APAP 7.5MG-325MG 1 EA TAB PO PRN ×5 (06:38→23:04)
[2017-07-05] MEDS: DEXTROSE 5%/LACTATED RINGERS 1,000 ML IV SCH (11:22)
[2017-07-05] MEDS: LORAZEPAM INJ 2 MG/ML VIAL IV PRN (12:51)
[2017-07-05] MEDS: PANTOPRAZOLE 40 MG 10ML VIAL IV SCH (16:52)
[2017-07-06] VITALS (8 sets, daily range): BP systolic 124–139; BP diastolic 75–86
[2017-07-06] MEDS: DEXTROSE 5%/LACTATED RINGERS 1,000 ML IV SCH ×2 (00:44→15:02)
[2017-07-06] MEDS: LORAZEPAM INJ 2 MG/ML VIAL IV PRN ×4 (02:22→23:35)
[2017-07-06] MEDS: HYDROCODONE/APAP 7.5MG-325MG 1 EA TAB PO PRN ×3 (07:35→15:35)
[2017-07-06] MEDS: PANTOPRAZOLE 40 MG 10ML VIAL IV SCH (16:25)
[2017-07-06] MEDS: HYDROMORPHONE 2MG/ML INJ IV PRN (20:02)
[2017-07-07] VITALS (7 sets, daily range): BP systolic 122–132; BP diastolic 79–84
[2017-07-07] MEDS: DEXTROSE 5%/LACTATED RINGERS 1,000 ML IV SCH ×3 (03:21→21:03)
[2017-07-07] MEDS: HYDROMORPHONE 2MG/ML INJ IV PRN ×2 (03:21→09:05)
[2017-07-07] MEDS: ONDANSETRON HCL INJ 2 MG/ML VIAL IV PRN (09:05)
[2017-07-07] MEDS ORDERED: HEPARIN SOD (PORCINE) 5,000 UNIT/ML VIAL ONE (10:49)
[2017-07-07] MEDS ORDERED: LIDOCAINE HCL 1% LOCAL INJ 20 ML VIAL ONE (10:49)
[2017-07-07] MEDS ORDERED: BUPIVACAINE HCL 0.5% INJ 30 ML VIAL INJ ONE (10:49)
[2017-07-07] MEDS ORDERED: SODIUM CHLORIDE 0.9% 500ML 500 ML ONE (10:50)
[2017-07-07] MEDS ORDERED: CEFAZOLIN SOD 1 GM/NS 50ML 50 ML IV SCH (14:00)
--- NOTE | 2017-07-07 14:02 | Operative Report ---
DATE OF PROCEDURE: July 07, 2017 PREOPERATIVE DIAGNOSIS: Colorectal cancer, needing intravenous access for chemotherapy. POSTOPERATIVE DIAGNOSIS: Colorectal cancer, needing intravenous access for chemotherapy. OPERATION PERFORMED: Placement of left subclavian venous access port under C-arm guidance. ANESTHESIA: General. COMPLICATIONS: None. ESTIMATED BLOOD LOSS: Minimal. DESCRIPTION OF PROCEDURE: With the patient lying in bed in the Trendelenburg position under good general anesthesia, the left chest was prepped with Betadine solution and draped in the usual manner. A standard left subclavian venipuncture was performed without any difficulty and a guidewire was advanced into central venous position. The tip of the guidewire was confirmed to be at the level of the superior vena cava with the C-arm and the left lung was fully expanded. A pocket was then created in the left anterior chest to accept the reservoir. The catheter was threaded to the subclavian position and cut to the appropriate length. The reservoir and catheter were fully heparinized. The peel-away sheath introducer was placed over the guidewire and the guidewire was removed. The catheter was threaded through the peel-away sheath and the peel-away sheath was removed without any problems. There was good blood return and the reservoir and catheter were fully heparinized. Using the C-arm, the tip of the catheter was confirmed to be at the level of the superior vena cava and the left lung was fully expanded. The wounds were then closed in layers. The subcutaneous tissue was approximated with 3-0 and 4-0 Vicryl and the skin was closed with subcuticular 5-0 Vicryl. Benzoin, Steri-Strips, and dressings were applied. The sponge, lap, and needle count was correct. The patient tolerated the procedure well and returned to the recovery room in stable condition. Job#: [id number] JESSICA
[2017-07-07] MEDS: LORAZEPAM INJ 2 MG/ML VIAL IV PRN ×2 (14:13→22:50)
[2017-07-07] MEDS: HYDROCODONE/APAP 7.5MG-325MG 1 EA TAB PO PRN ×2 (16:20→22:50)
[2017-07-07] MEDS: PANTOPRAZOLE 40 MG 10ML VIAL IV SCH (16:25)
[2017-07-07] MEDS ORDERED: FENTANYL CITRATE/PF 100MCG/2 ML INJ ONE (17:34)
[2017-07-07] MEDS ORDERED: MIDAZOLAM HCL 2 MG/2 ML VIAL ONE (17:34)
[2017-07-07] MEDS ORDERED: ONDANSETRON HCL INJ 2 MG/ML VIAL ONE (19:57)
[2017-07-07] MEDS ORDERED: DEXAMETHASONE SOD PHOS INJ 4 MG/ML VIAL ONE (19:57)
[2017-07-07] MEDS ORDERED: PROPOFOL IV EMULSION 10 MG/ML 20 ML VIAL ONE (19:57)
[2017-07-07] MEDS ORDERED: CEFAZOLIN SOD 1 GM VIAL ONE (19:57)
[2017-07-07] MEDS ORDERED: LIDOCAINE HCL 2% LOCAL INJ 5 ML SDV VIAL INJ ONE (19:57)
[2017-07-07] MEDS ORDERED: SEVOFLURANE INHAL SOLN 250 ML PEN BTL ONE (19:57)
[2017-07-07] MEDS: CEFAZOLIN SOD 1 GM VIAL IV SCH (20:17)
[2017-07-08] VITALS (7 sets, daily range): BP systolic 119–147; BP diastolic 62–93
[2017-07-08] MEDS: HYDROMORPHONE 2MG/ML INJ IV PRN ×4 (02:08→19:24)
[2017-07-08] MEDS: CEFAZOLIN SOD 1 GM VIAL IV SCH (04:45)
[2017-07-08] MEDS: HYDROCODONE/APAP 7.5MG-325MG 1 EA TAB PO PRN ×3 (12:58→22:14)
[2017-07-08] MEDS: ONDANSETRON HCL INJ 2 MG/ML VIAL IV PRN (14:07)
[2017-07-08] MEDS: PANTOPRAZOLE 40 MG 10ML VIAL IV SCH (16:51)
[2017-07-08] MEDS ORDERED: NORCO 7.5-3251 EACH PO (19:09)
[2017-07-08] MEDS ORDERED: LEVAQUIN500 MG PO (19:10)
[2017-07-08] MEDS: DEXTROSE 5%/LACTATED RINGERS 1,000 ML IV SCH (21:32)
[2017-07-09] VITALS: BP 138/81
[2017-07-09] MEDS: LORAZEPAM INJ 2 MG/ML VIAL IV PRN
[2017-07-09] MEDS: HYDROMORPHONE 2MG/ML INJ IV PRN ×2 (01:06→06:30)
[2017-07-09] MEDS: HYDROCODONE/APAP 7.5MG-325MG 1 EA TAB PO PRN ×2 (03:41→08:32)
[2017-07-09 04:00] VITALS: BP 144/84
[2017-07-09 07:30] VITALS: BP 144/84
[2017-07-09 08:02] VITALS: BP 150/87
== END 2017-07-09 08:55 | disposition home or self-care (01) | DRG 330 ==
LOC: ER 10:17 → ERHOLD 14:32 → IMCU 18:38 → OBSVTOIN 06-22 11:11 → MED/SURG 06-22 20:45 → ICU 06-30 16:43 → MED/SURG 07-01 15:13
PROC: 30233N1 Transfusion of Nonautologous Red Blood Cells into Peripheral Vein, Percutaneous Approach (ICD-10-PCS; 2017-06-22)
PROC: 0DBP8ZX Excision of Rectum, Via Natural or Artificial Opening Endoscopic, Diagnostic (ICD-10-PCS; 2017-06-23)
PROC: 0DBF8ZX Excision of Right Large Intestine, Via Natural or Artificial Opening Endoscopic, Diagnostic (ICD-10-PCS; 2017-06-23)
PROC: 0DTF4ZZ Resection of Right Large Intestine, Percutaneous Endoscopic Approach (ICD-10-PCS; principal; 2017-06-30 13:00)
PROC: 0D1K4Z4 Bypass Ascending Colon to Cutaneous, Percutaneous Endoscopic Approach (ICD-10-PCS; principal; 2017-06-30 13:00)
PROC: 0JH63XZ Insertion of Tunneled Vascular Access Device into Chest Subcutaneous Tissue and Fascia, Percutaneous Approach (ICD-10-PCS; 2017-07-07)
PROC: 02HV33Z Insertion of Infusion Device into Superior Vena Cava, Percutaneous Approach (ICD-10-PCS; 2017-07-07)
DX: C20 Malignant neoplasm of rectum (principal); R18.8 Other ascites; J90 Pleural effusion, not elsewhere classified; I31.3 Pericardial effusion (noninflammatory); C78.6 Secondary malignant neoplasm of retroperitoneum and peritoneum; E88.09 Other disorders of plasma-protein metabolism, not elsewhere classified; D62 Acute posthemorrhagic anemia; K51.212 Ulcerative (chronic) proctitis with intestinal obstruction; K62.4 Stenosis of anus and rectum; D50.9 Iron deficiency anemia, unspecified; E83.51 Hypocalcemia; Z86.010 Personal history of colon polyps
CPT/HCPCS: 36415; 36430; 45330; 74018; 74177; 77001; 80048; 80053; 81001; 82378; 82728; 83540; 83690; 83880; 84466; 85014; 85018; 85025; 85610; 85651; 86140; 86850; 86900; 86920; 87045; 87086; 87493; 88305; 88307; 88309; 88342; 96361; 99284; G0378; J0690; J1100; J1200; J1644; J1720; J1750; J2001; J2060; J2250; J2270; J2370; J2405; J2543; J2550; J2920; J7030; J7040; J7050; J7120; P9016; Q9967

== ENCOUNTER 2017-10-29 06:35 | Inpatient (IN) | payer BC ==
[~2017-10-29] VITALS: Ht 182.9 cm; Wt 94.8 kg
[~2017-10-29 06:35] MED LIST: LEVAQUIN500 MG PO; NORCO 7.5-3251 EACH PO
--- OUTSIDE RECORDS SUMMARY | 2017-10-29 06:37 | XMS REPORT | Continuity of Care Document ---
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 No 06/21/17 8:39pm If yes, is advance directive on file with [facility]? No 11/03/13 10:23am If not on file with [facility] will patient provide a copy? No 06/21/17 8:39pm Do you have a Directive to Physician? No 06/21/17 10:20am Do you have a Medical Power of Production Painter? No 06/21/17 10:20am Do you have an out of hospital Do Not Resuscitate Order? No 06/21/17 10:20am Do you have any special needs we should be aware of? No 06/21/17 10:20am Do you have a support person here with you today? Yes 06/21/17 10:20am Did patient receive Notice of Privacy Practices? Yes 06/21/17 10:20am Did patient receive patient rights and responsibilities? Yes 06/21/17 10:20am Problems Medical Problem Onset Date Status Abdominal pain in male Unknown Toxic megacolon Unknown Medications Current Home Medications Medication Dose Units Route Directions Days Qty Instructions Start Date Hydrocodone Bit/Acetaminophen (Jackhorn 7.5-325 Tablet) 1 Each Tablet 1 Ea Oral Every 4 Hours as needed for Pain 30 Tab Levofloxacin (Levaquin) 500 Mg Tablet 500 Mg Oral Daily 7 Days Social History Social History Problem Response Recorded Date/Time Onset Date Status Hx Psychiatric Problems No 06/21/2017 8:39pm Not Applicable Not Applicable Hx Eating Disorder No 06/21/2017 8:39pm Not Applicable Not Applicable Hx Substance Use Disorder No 06/21/2017 8:39pm Not Applicable Not Applicable Hx Depression No 06/21/2017 8:39pm Not Applicable Not Applicable Hx Alcohol Use Y - socially 06/21/2017 8:39pm Not Applicable Not Applicable Hx Substance Use Treatment No 06/21/2017 8:39pm Not Applicable Not Applicable Hx Physical Abuse No 06/21/2017 8:39pm Not Applicable Not Applicable Smoking Status Start Date Stop Date Never Smoker Hospital Discharge Instructions No hospital discharge instruction information available. Plan of Care Discharge Date 07/09/17 8:55am Disposition HOME, SELF-CARE Instructions/Education Provided Post Operative Pain Stitches and Ruby Care Forms Provided Work/School Excuse Prescriptions See Medication Section Referrals ALLIE HDZ MD (Surgery) Order Date: 07/13/2017 Entered Date: 07/08/2017 7:08pm Address: [address] [place] [phone] Additional Instructions/Education DIET TOLERATED , DISCUSSED WITH BOX GLUER ACTIVITY TOLERATED, NO HEAVING LIFTING, NO DRIVING CHANGE DRESSING DISCUSSED, MANY TIMES NEEDED FOLLOW UP WITH MD Guanako HDZ ON Wednesday HOME HEALTH TO BE SET UP PER CASE MANAGEMENT Functional Status Query Response Date Recorded Assistive Devices None June 21, 2017 9:19pm Ambulation Ability Independent June 21, 2017 9:19pm Toileting Ability Minimum Assistance July 08, 2017 6:44pm Allergies, Adverse Reactions, Alerts No known allergies. Immunizations No immunization information available. Vital Signs Acute Vital Signs Vital Response Date/Time Temperature (Fahrenheit) 96.8 degrees F (97.6 - 99.5) 07/09/2017 8:02am Pulse Pulse Rate (adult) 89 bpm (60 - 90) 07/09/2017 8:02am Respiratory Rate 18 bpm (12 - 24) 07/09/2017 8:02am Blood Pressure 150/87 mm Hg 07/09/2017 8:02am Height 6 ft 2 in 06/21/2017 8:39pm Weight 193.50 lb 06/30/2017 8:04am Body Mass Index 24.8 kg/m^2 06/30/2017 8:04am Results Laboratory Results Test Name Result Units Flags Reference Collection Date/Time Result Date/ Time Comments White Blood Count 11.67 x10e3/uL H 4.8-10.8 07/03/2017 7:58am 2017 8:35am Red Blood Count 3.84 x10e6/uL L 4.3-5.7 07/03/2017 7:58am 07/03/2017 8: 35am Hemoglobin 9.0 g/dL L 14.0-18.0 07/03/2017 7:58am 07/03/2017 8:35am Hematocrit 30.8 % L 38.2-49.6 07/03/2017 7:58am 07/03/2017 8:35am Mean Corpuscular Volume 80.2 fL L 81-99 07/03/2017 7:58am 07/03/2017 8: 35am Mean Corpuscular Hemoglobin 23.4 pg L 28-32 07/03/2017 7:58am 2017 8:35am Mean Corpuscular Hemoglobin Concent 29.2 g/dL L 31-35 07/03/2017 7:58am 07/03/2017 8:35am Red Cell Distribution Width 30.1 % H 11.7-14.4 07/03/2017 7:58am 2017 8:35am Platelet Count 187 x10e3/uL 140-360 07/03/2017 7:58am 07/03/2017 8: 35am Neutrophils (%) (Auto) 83.2 % H 38.7-80.0 07/03/2017 7:58am 07/03/2017 8 :35am Lymphocytes (%) (Auto) 4.9 % L 18.0-39.1 07/03/2017 7:58am 07/03/2017 8: 35am Monocytes (%) (Auto) 8.5 % 4.4-11.3 07/03/2017 7:58am 07/03/2017 8: 35am Eosinophils (%) (Auto) 1.3 % 0.0-6.0 07/03/2017 7:58am 07/03/2017 8: 35am Basophils (%) (Auto) 0.1 % 0.0-1.0 07/03/2017 7:58am 07/03/2017 8:35am IM GRANULOCYTES % 2.0 % H 0.0-1.0 07/03/2017 7:58am 07/03/2017 8:35am Neutrophils # (Auto) 9.7 H 2.1-6.9 07/03/2017 7:58am 07/03/2017 8: 35am Lymphocytes # (Auto) 0.6 L 1.0-3.2 07/03/2017 7:58am 07/03/2017 8: 35am Monocytes # (Auto) 1.0 H 0.2-0.8 07/03/2017 7:58am 07/03/2017 8:35am Eosinophils # (Auto) 0.2 0.0-0.4 07/03/2017 7:58am 07/03/2017 8:35am Basophils # (Auto) 0.0 0.0-0.1 07/03/2017 7:58am 07/03/2017 8:35am Absolute Immature Granulocyte (auto 0.23 x10e3/uL H 0-0.1 07/03/2017 7: 58am 07/03/2017 8:35am Differential Total Cells Counted 100 07/03/2017 7:58am 07/03/2017 10:13am Neutrophils % (Manual) 85 % H 40-74 07/03/2017 7:58am 07/03/2017 10: 13am Band Neutrophils % 3 % 07/01/2017 5:30am 07/01/2017 6:37am Lymphocytes % (Manual) 5 % L 19-48 07/03/2017 7:58am 07/03/2017 10:13am Monocytes % (Manual) 10 % H 3.4-9.0 07/03/2017 7:58am 07/03/2017 10: 13am Eosinophils % (Manual) 1 % 0-7 06/22/2017 6:05am 06/22/2017 7:55am Reactive Lymphocytes 2 06/22/2017 6:05am 06/22/2017 7:55am Platelet Estimate ADEQUATE 07/03/2017 7:58am 07/03/2017 10:13am Platelet Morphology Comment NORMAL 07/03/2017 7:58am 07/03/2017 10: 13am Polychromasia FEW 07/01/2017 5:30am 07/01/2017 6:37am Hypochromasia MODERATE 07/01/2017 5:30am 07/01/2017 6:37am Poikilocytosis MODERATE 07/01/2017 5:30am 07/01/2017 6:37am Anisocytosis MODERATE 07/01/2017 5:30am 07/01/2017 6:37am Microcytosis MODERATE 07/01/2017 5:30am 07/01/2017 6:37am Target Cells FEW 06/26/2017 3:30pm 06/26/2017 4:35pm Larsen-Pageland Bodies FEW 06/23/2017 6:50am 06/23/2017 9:59am Elliptocytes MODERATE 06/24/2017 7:01am 06/24/2017 8:56am Schistocytes RARE 07/01/2017 5:30am 07/01/2017 6:37am Red Cell Morphology Comment NORMAL 07/03/2017 7:58am 07/03/2017 10: 13am Erythrocyte Sedimentation Rate 15 mm/hr H 0-13 06/22/2017 6:05am 2017 7:05am Prothrombin Time 15.7 seconds H 11.9-14.5 06/30/2017 9:30am 06/30/2017 9 :56am Prothromb Time International Ratio 1.19 06/30/2017 9:30am 2017 9:56am Oral Anticoagulant Therapy INR Values: 1. Low Intensity Therapy 1.5 - 2.0 2. Moderate Intensity Therapy 2.0 - 3.0 3. High Intensity Therapy(1) 2.5 - 3.5 4. High Intensity Therapy(2) 3.0 - 4.0 5. Panic Value INR > 5.0 Urine Color STRAW YELLOW 06/21/2017 10:06/21/2017 6:02pm Urine Clarity CLEAR CLEAR 06/21/2017 10:06/21/2017 6:02pm Urine Specific [place] 1.015 1.010-1.025 06/21/2017 10:2017 6:02pm Urine pH 5 5 - 7 06/21/2017 10:06/21/2017 6:02pm Urine Leukocyte Esterase NEGATIVE NEGATIVE 06/21/2017 10:2017 6:02pm Urine Nitrite NEGATIVE NEGATIVE 06/21/2017 10:06/21/2017 6:02pm Urine Protein NEGATIVE NEGATIVE 06/21/2017 10:06/21/2017 6:02pm Urine Glucose (UA) NEGATIVE NEGATIVE 06/21/2017 10:06/21/2017 6: 02pm Urine Ketones TRACE H NEGATIVE 06/21/2017 10:06/21/2017 6:02pm Urine Urobilinogen 0.2 mg/dL 0.2 - 1 06/21/2017 10:06/21/2017 6: 02pm Urine Bilirubin NEGATIVE NEGATIVE 06/21/2017 10:06/21/2017 6: 02pm Urine Blood NEGATIVE NEGATIVE 06/21/2017 10:06/21/2017 6:02pm Urine WBC NONE /HPF 0-5 06/21/2017 10:06/21/2017 6:16pm Urine RBC NONE /HPF 0-5 06/21/2017 10:06/21/2017 6:16pm Urine Bacteria NONE /HPF NONE 06/21/2017 10:06/21/2017 6:16pm Urine Epithelial Cells NONE /LPF NONE 06/21/2017 10:2706/21/2017 6: 16pm Sodium Level 134 mmol/L L 136-145 07/03/2017 7:58am 07/03/2017 8:48am Potassium Level 3.5 mmol/L 3.5-5.1 07/03/2017 7:58am 07/03/2017 8:48am Chloride Level 104 mmol/L 98-107 07/03/2017 7:58am 07/03/2017 8:48am Carbon Dioxide Level 26 mmol/L 22-07/03/2017 7:58am 07/03/2017 8: 48am Anion Gap 7.5 mmol/L L 8-16 07/03/2017 7:58am 07/03/2017 8:48am Blood Urea Nitrogen 7 mg/dL 7-26 07/03/2017 7:58am 07/03/2017 8:48am Creatinine 0.64 mg/dL L 0.72-1.25 07/03/2017 7:58am 07/03/2017 8:48am BUN/Creatinine Ratio 11 6-25 07/03/2017 7:58am 07/03/2017 8:48am Estimat Glomerular Filtration Rate > 60 ML/MIN 60- 07/03/2017 7:58am 8:48am Ranges were taken from the National Kidney Disease Education Program and the National Kidney Foundation literature. Reference ranges: 60 or greater: Normal 16-59 (for 3 consecutive months): Chronic kidney disease 15 or less: Kidney failure Glucose Level 88 mg/dL 74-118 07/03/2017 7:58am 07/03/2017 8:48am Calcium Level 7.5 mg/dL L 8.4-10.2 07/03/2017 7:58am 07/03/2017 8:48am Iron Level 8 ug/dL L 65-175 06/22/2017 6:05am 06/22/2017 7:18am Total Iron Binding Capacity 179 ug/dL L 261-478 06/22/2017 6:05am 2017 7:18am Percent Iron Saturation 4 % L 15-50 06/22/2017 6:05am 06/22/2017 7:18am Transferrin 128 mg/dL L 174-364 06/22/2017 6:05am 06/22/2017 7:18am Ferritin 7.98 ng/mL L 21.81-274.66 06/22/2017 6:05am 06/22/2017 7:39am Total Bilirubin 0.9 mg/dL 0.2-1.2 07/03/2017 7:58am 07/03/2017 8:48am Aspartate Amino Transf (AST/SGOT) 11 IU/L 5-34 07/03/2017 7:58am 2017 8:48am Alanine Aminotransferase (ALT/SGPT) 6 IU/L 0-55 07/03/2017 7:58am 07/03 8:48am Total Protein 4.4 g/dL L 6.5-8.1 07/03/2017 7:58am 07/03/2017 8:48am Albumin 1.2 g/dL L 3.5-5.0 07/03/2017 7:58am 07/03/2017 8:48am Globulin 3.2 g/dL 2.3-3.5 07/03/2017 7:58am 07/03/2017 8:48am Albumin/Globulin Ratio 0.4 L 0.8-2.0 07/03/2017 7:58am 07/03/2017 8: 48am Alkaline Phosphatase 48 IU/L 40-150 07/03/2017 7:58am 07/03/2017 8: 48am B-Type Natriuretic Peptide 73.8 pg/mL 0-100 06/22/2017 6:05am 2017 7:01am Lipase 5 U/L L 8-78 06/21/2017 10:36am 06/21/2017 11:12am Carcinoembryonic Antigen 2.1 ng/mL 0.0-4.7 06/22/2017 6:05am 2017 6:56pm Cesar ECLIA methodology Nonsmokers <3.9 Smokers <5.6 Performed at: [address] [id number] [employer] Vehicle Operator: Milan Corado MD, Phone: [phone] C-Reactive Protein 158.1 mg/L H 0.0-4.9 06/22/2017 6:05am 06/23/2017 12: 23pm Performed at: [address] [id number] [employer] Vehicle Operator: Milan Corado MD, Phone: [phone] Clostridium Difficile Toxin A & B NEGATIVE NEGATIVE 06/22/2017 10: 00am 06/22/2017 12:58pm Testing on stool aspirate specimens is outside landing worker claims since specimen type not validated on this assay. Procedures Procedure Status Date Provider(s) Flexible sigmoidoscopy Completed 06/23/17 CARITO HUGHES MD Colon resection Completed 06/30/17 ALLIE HDZ MD Insertion of venous access port Completed 07/07/17 ALLIE HDZ MD Computed tomography of abdomen and pelvis with contrast Active 06/21/17 ROSE FORTUNE MD Encounters Encounter Location Arrival/Admit Date Discharge/Depart Date Attending Provider Discharged Inpatient [facility] 06/22/17 11:11am 8:55am KHANH JENNINGS MD
--- OUTSIDE RECORDS SUMMARY | 2017-10-29 06:38 | XMS REPORT ---
Author Author 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 Allergies, Adverse Reactions, Alerts This patient has no known allergies or adverse reactions. Medications This patient has no known medications. Results Test Description Test Time Test Comments Text Results Atomic Results Result Comments ABDOMEN-1VIEW (KUB) [place] [address] Patient Name: HILL MARLOW MR #: [id number] : 1970 Age/Sex: 47/M Req #: [id number] Adm Physician: KHANH JENNINGS MD Ordered by: ROSE FORTUNE MD Report #: [id number] Location: [facility] Room/Bed: [place] [address] Procedure: [id number] DX/ABDOMEN-1VIEW (KUB) Exam Date: 06/22/17 Exam Time: 0635 REPORT STATUS: Signed PROCEDURE: X-RAY ABDOMEN - KUB COMPARISON: CT abdomen and pelvis 06/21/2017. INDICATIONS: ABDOMINAL PAIN FINDINGS: Dilated fluid filled loops of colon. No air is present in the rectum. There are no calcifications projected over the renal shadows, expected course of the ureters or bladder. There are no acute osseous abnormalities. The lung bases are clear. CONCLUSION: Dilated fluid filled loops of colon may represent a distal colon obstruction. Dictated by: Giulia Barbosa M.D. on 06/22/2017 at 7: 53 Electronically approved by: Giulia Barbosa M.D. on 06/22/2017 at 7:53 Dictated By: GIULIA BARBOSA MD 2 Transcribed By: NADJA on 06/22/17752 COPY TO : ROSE FORTUNE MD CT ABDOMEN/PELVIS W [place] [address] Patient Name: HILL MARLOW MR #: [id number] : 1970 Age/Sex: 47/M Req #: [id number] Adm Physician: Ordered by: ORSE FORTUNE MD Report #: [id number] Location: ER Room/Bed: Procedure: [id number] CT/CT ABDOMEN/PELVIS W Exam Date: 06/21/17 Exam Time : 1203 REPORT STATUS: Signed EXAM: CT Abdomen and Pelvis WITH contrast INDICATION: COMPARISON: None available. TECHNIQUE: Abdomen and pelvis were scanned utilizing a multidetector helical scanner from the lung base to the pubic symphysis after administration of IV contrast. Coronal and sagittal reformations were obtained. Routine protocol was performed. Scan was performed when during portal venous phase. IV CONTRAST: 100 mL of Isovue-370 ORAL CONTRAST: Gastroview COMPLICATIONS: None RADIATION DOSE: Total DLP: 554.32 mGy*cm Estimated effective dose: (DLP x 0.015 x size factor) mSv CTDIvol has been reviewed. It is below the limits set by the Radiation Protocol Committee (RPC). FINDINGS: LINES and TUBES: None. LOWER THORAX: Bibasilar atelectasis. Trace pericardial fluid. HEPATOBILIARY: 0.9 cm left hepatic lobe cyst. No focal hepatic lesions. No biliary ductal dilation. GALLBLADDER: No radio-opaque stones or sludge. No wall thickening. SPLEEN : Splenomegaly. PANCREAS: No focal masses or ductal dilatation. ADRENALS: No adrenal nodules KIDNEYS/URETERS: Kidneys enhance symmetrically. No hydronephrosis. No cystic or solid mass lesions. No stones. GI TRACT: Significant distention of the entire colon with loss of haustral markings, measuring up to 8.3 cm with abrupt narrowing at the high rectal area (series 2, image 80). The remainder of the rectum also shows wall thickening. Small hiatal hernia with contrast in distal esophagus, suggestive of gastroesophageal reflux. PELVIC ORGANS/BLADDER: Unremarkable. LYMPH NODES: Prominent retroperitoneal lymph nodes. For example 1.1 cm and 1.2 cm left para-aortic lymph nodes (series 2, images 43 and 45). There are also enlarged peripancreatic lymph nodes, measuring up to 1.1 cm (series 2, image 35). Multiple mesorectal/presacral lymph nodes, the largest measuring 1.3 cm (series 2, image 75 and series 301 image 73). VESSELS: Unremarkable. PERITONEUM / RETROPERITONEUM: No free air. Trace abdominal ascites. BONES: Bilateral L5 pars defects with grade 1 L5-S1 spondylolisthesis. SOFT TISSUES: Unremarkable. IMPRESSION: 1. Significant distention of entire colon with narrowing at the high rectal area. Differentials include toxic megacolon (considering history of inflammatory bowel disease), colonic ileus, and partial obstruction from rectal mass. There is rectal wall thickening and suspected mesorectal and retroperitoneal lymph nodes. 2. Trace abdominal ascites and pericardial effusion. Findings discussed with Dr. Fortune at 12:50 PM, on 06/21/2017. Signed by: Dr. William Mariee MD on 06/21/2017 12:53 PM Dictated By: WILLIAM MARIEE MD [id number] Transcribed By: DORIS on 06/21/17 1253 COPY TO: ROSE FORTUNE MD
[2017-10-29] MEDS ORDERED: SODIUM CHLORIDE 0.9% 1000ML 1,000 ML IV STA ×2 (06:44→07:41)
[2017-10-29] MEDS ORDERED: HYDROMORPHONE 2MG/ML 2 MG/ML ML IV NR (06:52)
[2017-10-29] MEDS ORDERED: DIATRIZOATE MEGL/DIATRIZOA SOD 30 ML BTL PO ONE (06:57)
[2017-10-29] MEDS ORDERED: ONDANSETRON HCL INJ 2 MG/ML VIAL IV STA (07:13)
[2017-10-29 07:17] LABS: BASOPHILS % 0.6 % (0.0-1.0); EOSINOPHILS # (AUTO) 0.2 (0.0-0.4); EOSINOPHILS % 5.7 % (0.0-6.0); HEMATOCRIT 41.9 % (38.2-49.6); HEMOGLOBIN 14.2 g/dL (14.0-18.0); LYMPHOCYTES # (AUTO) 0.5 (1.0-3.2); LYMPHOCYTES % 15.3 % (18.0-39.1); MEAN CORPUSCULAR HEMOGLOBIN 29.3 pg (28-32); MEAN CORPUSCULAR HGB CONC 33.9 g/dL (31-35); MEAN CORPUSCULAR VOLUME 86.4 fL (81-99); MONOCYTES # (AUTO) 0.6 (0.2-0.8); MONOCYTES % 18.8 % (4.4-11.3); NEUTROPHILS # (AUTO) 1.8 (2.1-6.9); NEUTROPHILS % 57.7 % (38.7-80.0); PLATELET COUNT 165 x10e3/uL (140-360); RED BLOOD COUNT 4.85 x10e6/uL (4.3-5.7); RED CELL DISTRIBUTION WIDTH 24.2 % (11.7-14.4)
[2017-10-29 07:29] LABS: INR 1.05; PARTIAL THROMBOPLASTIN TIME 26.1 seconds (23.8-35.5); PROTHROMBIN TIME 12.9 seconds (11.9-14.5)
[2017-10-29] MEDS ORDERED: HYDROMORPHONE 1MG/1ML INJ IV NR (07:30)
[2017-10-29] MEDS ORDERED: ONDANSETRON HCL 4 MG ORAL DISINTEGRATING TAB SL NR (07:30)
[2017-10-29] MEDS ORDERED: METOCLOPRAMIDE HCL 10 MG/2ML VIAL IV ONE (07:30)
[2017-10-29 07:39] LABS: ALANINE AMINOTRANSFERASE 35 IU/L (0-55); ALBUMIN 4.1 g/dL (3.5-5.0); ALBUMIN/GLOBULIN RATIO 0.9 (0.8-2.0); ALKALINE PHOSPHATASE 191 IU/L (40-150); AMYLASE 83 U/L (25-125); ANION GAP 24.6 mmol/L (8-16); BLOOD UREA NITROGEN 18 mg/dL (7-26); BUN/CREATININE RATIO 15 (6-25); CALCIUM 10.3 mg/dL (8.4-10.2); CARBON DIOXIDE 24 mmol/L (22-29); CHLORIDE 87 mmol/L (98-107); CREATINE KINASE 206 IU/L (30-200); CREATININE, SERUM 1.22 mg/dL (0.72-1.25); EST GLOMERULAR FILTRATION RATE > 60 ML/MIN (60-); GLUCOSE 172 mg/dL (74-118); LIPASE 22 U/L (8-78); MAGNESIUM 1.3 MG/DL (1.3-2.1); SODIUM 133 mmol/L (136-145)
[2017-10-29 07:40] LABS: POTASSIUM 2.6 mmol/L (3.5-5.1)
[2017-10-29] MEDS ORDERED: POTASSIUM CHLORIDE 20MEQ/100ML 200 ML IV ONE (07:45)
--- NOTE | 2017-10-29 08:15 | Diagnostic Imaging Report ---
PROCEDURE: CHEST SINGLE (PORTABLE) COMPARISON: CT abdomen and pelvis 06/21/2017. INDICATIONS: ABDOMEN PAIN, LOW POTASSIUM FINDINGS: Left subclavian central venous port catheter is noted. The tip projects over the expected region of the brachiocephalic venous confluence. The lungs are well-inflated. Linear opacity in the lung bases left greater than right compatible with subsegmental atelectasis. No consolidation or pleural effusion. Cardiomediastinal contour and pulmonary vasculature are within normal limits. No acute osseous abnormality. CONCLUSION: Subsegmental atelectasis in the lung bases. Otherwise no acute cardiopulmonary abnormality. Dictated by: Lopez Cage M.D. on 10/29/2017 at 8:17 Electronically approved by: Lopez Cage M.D. on 10/29/2017 at 8:17
[2017-10-29] MEDS ORDERED: MORPHINE SULFATE 2 MG/ML SYR ONE (09:15)
[2017-10-29] MEDS ORDERED: MORPHINE SULFATE 5 MG/ML VIAL IV ONE (09:15)
--- NOTE | 2017-10-29 09:25 | Diagnostic Imaging Report ---
PROCEDURE: CT ABDOMEN AND PELVIS WITH CONTRAST TECHNIQUE: The abdomen and pelvis were scanned utilizing a multidetector helical scanner from the diaphragm to the lesser trochanter after the IV administration of 100 cc of Isovue 370 and the oral administration of Gastrografin. Coronal and sagittal multiplanar reformations were obtained. COMPARISON: 06/21/2017 INDICATIONS: ABD PAIN/DISTENSION FINDINGS: LOWER THORAX: 1.1 cm lingular nodule, not included on the scan field of the comparison examination. Bibasilar subsegmental atelectasis.. HEPATOBILIARY: Stable subcentimeter hypoattenuating lesion in segment 3, too small to further characterize but likely represent a small cyst. No additional focal hepatic lesion. No intrahepatic biliary ductal dilatation. SPLEEN: No splenomegaly or focal splenic lesion. PANCREAS: No focal pancreatic mass or ductal dilatation. ADRENALS: No adrenal nodules. KIDNEYS/URETERS: Mild fullness of the left renal collecting system without overt hydronephrosis. No gross renal mass lesion. No calculi. PELVIC ORGANS/BLADDER: The urinary bladder is unremarkable. Prostate and seminal vesicles appear normal. PERITONEUM / RETROPERITONEUM: Small volume intraperitoneal and peripancreatic free fluid, average attenuation 15-20 Hounsfield units. LYMPH NODES: The marked progression of retroperitoneal lymphadenopathy, with conglomerate lymph node masses measuring 5.8 x 3.8 cm in the aortocaval region and 3.6 x 2.6 cm in the periaortic region seen on series 2 image 40. Mesorectal mildly enlarged lymph nodes and fat stranding are unchanged. No mesenteric lymphadenopathy. VESSELS: The abdominal aorta, major branch vessels, and iliac arterial systems are well-visualized and patent. Minimal atherosclerotic calcification of the abdominal aorta. The inferior vena cava is displaced anteriorly from the vertebral column by above-described lymphadenopathy. Portal vein, splenic vein, and central superior mesenteric vein are patent. GI TRACT: Interval partial colectomy and right lower quadrant ileostomy. There is parastomal herniation of small bowel seen on series 2 image 70 resulting in high-grade small bowel obstruction. No pneumoperitoneum. BONES AND SOFT TISSUES: No osseous destructive lesions. Bilateral pars interarticularis defects at L5 with stable anterolisthesis of L5 over S1. No focal soft tissue abnormalities. IMPRESSION: Interval partial colectomy and right lower quadrant diverting ileostomy. 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 No venice perforation. Persistent perirectal fat stranding and lymphadenopathy concerning for metastatic disease. 1.3 cm lingular pulmonary nodule is presumably metastatic. Bulky retroperitoneal lymphadenopathy is greater than would be expected for metastatic colorectal cancer. Alternative etiologies such as lymphoma should be considered. Mild fullness of the left renal collecting system is likely due to mass effect from adenopathy. Dictated by: Lopez Cage M.D. on 10/29/2017 at 9:27 Electronically approved by: Loepz Cage M.D. on 10/29/2017 at 9:27
[2017-10-29] MEDS ORDERED: PIPER-TAZ 3.375 GM 50 ML IV STA (09:43)
[2017-10-29 09:44] LABS: ANISOCYTOSIS MODE; PLATELET ESTIMATE ADEQUATE; PLATELET MORPHOLOGY COMMENT FEW GIANT; POIKILOCYTOSIS MODERATE; RBC MORPHOLOGY COMMENT ABNORMAL
[2017-10-29] MEDS ORDERED: SODIUM CHLORIDE 0.9% 250ML IRRIG IR SCH (09:45)
[2017-10-29] MEDS ORDERED: LIDOCAINE HCL 2% JELLY 5 ML TUBE TOP ONE ×2 (10:30→17:15)
[2017-10-29] MEDS ORDERED: BENZOCAINE/TETRACAINE/BUTAMBEN AERO SPRAY 56 GM CAN TOP ONE (10:30)
[2017-10-29] MEDS ORDERED: SODIUM CHLORIDE 0.9% 1000ML 1,000 ML ONE (10:44)
[2017-10-29] MEDS ORDERED: HYDROMORPHONE 1MG/1ML INJ IV PRN (10:45)
[2017-10-29] MEDS ORDERED: HYDROMORPHONE 2MG/ML 2 MG/ML ML IV PRN (10:45)
[2017-10-29] MEDS ORDERED: SODIUM CHLORIDE FLUSH 10 ML SYR INJ PRN (10:45)
[2017-10-29] MEDS ORDERED: HYDROMORPHONE 2MG/ML 2 MG/ML ML IV ONE (10:45)
[2017-10-29] MEDS ORDERED: HYDROMORPHONE 2MG/ML 2 MG/ML ML IV SCH (11:00)
--- NOTE | 2017-10-29 11:19 | Diagnostic Imaging Report ---
PROCEDURE:X-RAY ABDOMEN - KUB COMPARISON:CT abdomen/pelvis 0845 hours. INDICATIONS:POST NG TUBE PLACEMENT FINDINGS: Lines/tubes: Enteric tube terminates in the proximal stomach. Bowel: Numerous dilated small bowel loops are re-demonstrated, measuring up to 5 cm in diameter. No pneumatosis. There is little large bowel air. Calcifications: None. There is excreted contrast in the collecting systems from CT. The collecting system is mildly distended consistent with hydronephrosis. This is secondary to retroperitoneal lymphadenopathy identified on CT. The right renal collecting system is normal. Organomegaly: None. Free air: None. Lung bases: Clear CONCLUSION: 1. Enteric tube as described above. 2. Dilated small bowel loops consistent with obstruction. 3. Mild left hydronephrosis secondary to retroperitoneal lymphadenopathy. Dictated by: Joslyn Aggarwal M.D. on 10/29/2017 at 11:22 Electronically approved by: Joslyn Aggarwal M.D. on 10/29/2017 at 11:22
[2017-10-29] MEDS: HYDROMORPHONE 2MG/ML 2 MG/ML ML IV PRN ×3 (12:24→22:00)
[2017-10-29 13:35] LABS: ALANINE AMINOTRANSFERASE 30 IU/L (0-55); ALBUMIN 3.4 g/dL (3.5-5.0); ALBUMIN/GLOBULIN RATIO 0.9 (0.8-2.0); ALKALINE PHOSPHATASE 154 IU/L (40-150); ANION GAP 15.9 mmol/L (8-16); BLOOD UREA NITROGEN 13 mg/dL (7-26); BUN/CREATININE RATIO 15 (6-25); CARBON DIOXIDE 26 mmol/L (22-29); CHLORIDE 96 mmol/L (98-107); CREATININE, SERUM 0.86 mg/dL (0.72-1.25); EST GLOMERULAR FILTRATION RATE > 60 ML/MIN (60-); GLUCOSE 108 mg/dL (74-118); MAGNESIUM 1.2 MG/DL (1.3-2.1); SODIUM 135 mmol/L (136-145)
[2017-10-29 13:37] LABS: POTASSIUM 2.9 mmol/L (3.5-5.1)
[2017-10-29] MEDS ORDERED: POTASSIUM CHLORIDE 20MEQ/100ML 1,000 ML IV ONE (13:45)
[2017-10-29] MEDS ORDERED: SODIUM CHLORIDE 0.9% 50ML 50 ML ONE (13:56)
[2017-10-29] MEDS ORDERED: IOPAMIDOL 370 MG/ML 200 ML INFUS..BTL INJ ONE (13:56)
[2017-10-29 14:00] VITALS: BP 149/100
[2017-10-29] MEDS ORDERED: POTASSIUM CHLORIDE 10MEQ/100ML 200 ML IV ONE (14:00)
[2017-10-29] MEDS: KCL 20MEQ/.9 SOD CHL 1,000 ML IV SCH (14:00)
[2017-10-29] MEDS ORDERED: PIPER-TAZ 3.375 GM / NS 50ML IV SCH (14:00)
[2017-10-29] MEDS ORDERED: SODIUM CHLORIDE 0.9% 250ML 250 ML ONE (15:16)
[2017-10-29] MEDS: PIPER-TAZ 3.375 GM 50 ML IV SCH ×2 (15:45→21:29)
[2017-10-29 15:51] VITALS: BP 143/97
[2017-10-29 16:27] VITALS: BP 143/97
[2017-10-29 16:41] VITALS: BP 143/97
[2017-10-29] MEDS ORDERED: ONDANSETRON HCL 4 MG ORAL DISINTEGRATING TAB PO PRN (17:15)
[2017-10-29 19:05] LABS: BILIRUBIN,URINE NEGATIVE (NEGATIVE); CLARITY,URINE SL CLOUDY (CLEAR); COLOR,URINE YELLOW (YELLOW); KETONES,URINE 1+ (NEGATIVE); LEUKOCYTE ESTERASE ,URINE NEGATIVE (NEGATIVE); NITRITE,URINE NEGATIVE (NEGATIVE); PROTEIN,URINE DIPSTICK 1+ (NEGATIVE); URINE UROBILINOGEN 0.2 mg/dL (0.2 - 1)
--- NOTE | 2017-10-29 19:37 | Diagnostic Imaging Report ---
EXAMINATION: ABDOMEN-1VIEW (KUB) 10/29/2017 6:51 PM COMPARISON: 10/29/2017 at 10:54 AM INDICATION: NG tube placement DISCUSSION: 1 view of the abdomen (AP supine) Enteric tube has its tip in the gastric body. A catheter is projected over the left lung. Multiple dilated small bowel loops are identified. The right hemiabdomen and pelvis are excluded from this examination. IMPRESSION: Enteric tube tip in the gastric body. Hemant Salas MD Signed by: Dr. Hemant Salas M.D. on 10/29/2017 7:33 PM
[2017-10-29 19:56] VITALS: BP 141/98
[2017-10-29 20:00] VITALS: BP 141/98
[2017-10-29] MEDS: LORAZEPAM INJ 2 MG/ML VIAL IV PRN (20:50)
[2017-10-30] VITALS (8 sets, daily range): BP systolic 117–157; BP diastolic 77–95
[2017-10-30] MEDS: DIPHENHYDRAMINE HCL INJ 50 MG/ML VIAL IV PRN ×3 (01:49→20:02)
[2017-10-30] MEDS: HYDROMORPHONE 2MG/ML 2 MG/ML ML IV PRN (05:29)
[2017-10-30] MEDS: KCL 20MEQ/.9 SOD CHL 1,000 ML IV SCH ×4 (05:57→20:10)
[2017-10-30] MEDS: PIPER-TAZ 3.375 GM 50 ML IV SCH ×3 (05:57→22:11)
[2017-10-30 07:16] LABS: EOSINOPHILS # (AUTO) 0.1 (0.0-0.4); EOSINOPHILS % 7.1 % (0.0-6.0); HEMATOCRIT 38.5 % (38.2-49.6); HEMOGLOBIN 12.8 g/dL (14.0-18.0); LYMPHOCYTES # (AUTO) 0.2 (1.0-3.2); LYMPHOCYTES % 11.2 % (18.0-39.1); MEAN CORPUSCULAR HEMOGLOBIN 29.7 pg (28-32); MEAN CORPUSCULAR HGB CONC 33.2 g/dL (31-35); MEAN CORPUSCULAR VOLUME 89.3 fL (81-99); MONOCYTES # (AUTO) 0.7 (0.2-0.8); MONOCYTES % 36.7 % (4.4-11.3); NEUTROPHILS # (AUTO) 0.8 (2.1-6.9); PLATELET COUNT 172 x10e3/uL (140-360); RED BLOOD COUNT 4.31 x10e6/uL (4.3-5.7); RED CELL DISTRIBUTION WIDTH 24.9 % (11.7-14.4)
[2017-10-30 07:51] LABS: ALANINE AMINOTRANSFERASE 28 IU/L (0-55); ALBUMIN 3.3 g/dL (3.5-5.0); ALBUMIN/GLOBULIN RATIO 0.8 (0.8-2.0); ALKALINE PHOSPHATASE 142 IU/L (40-150); ANION GAP 17.8 mmol/L (8-16); BLOOD UREA NITROGEN 11 mg/dL (7-26); BUN/CREATININE RATIO 11 (6-25); CALCIUM 9.4 mg/dL (8.4-10.2); CARBON DIOXIDE 26 mmol/L (22-29); CHLORIDE 100 mmol/L (98-107); CREATININE, SERUM 0.97 mg/dL (0.72-1.25); EST GLOMERULAR FILTRATION RATE > 60 ML/MIN (60-); GLUCOSE 104 mg/dL (74-118); SODIUM 141 mmol/L (136-145)
[2017-10-30 08:01] LABS: POTASSIUM 2.8 mmol/L (3.5-5.1)
[2017-10-30] MEDS ORDERED: POTASSIUM CHLORIDE 20MEQ/100ML 200 ML IV ONE (09:00)
--- NOTE | 2017-10-30 09:01 | Diagnostic Imaging Report ---
Exam: KUB with PA chest. Clinical History: Small bowel obstruction, hypokalemia Comparison: Abdomen one view 10/29/2017, CT abdomen and pelvis 10/29/2017 DISCUSSION: Enteric tube in place, with distal tip projecting in the stomach fundus No significant interval change in multiple air-filled, dilated loops of small bowel, with maximal measurement of approximately 5.3 cm.. Multiple staggered air-fluid levels are noted on upright view. No pneumoperitoneum. No abnormal calcifications. No acute bony abnormalities. Hyperdensity in the mid pelvis consistent with contrast-filled bladder. Mildly hypoinflated lungs with bibasilar linear opacities consistent with subsegmental atelectasis. Left upper chest Port-A-Cath, with distal tip projecting in the proximal SVC. Cardiomediastinal silhouette is normal. Pulmonary vasculature is normal. No acute bony abnormalities. IMPRESSION: 1. No significant interval change in findings consistent with small bowel obstruction. No pneumoperitoneum. 2. Hypoinflated lungs with bibasilar subsegmental atelectasis. The staff physician below has personally reviewed this exam on the date of dictation. Signed by: Dr. Ayden Ritchie M.D. on 10/30/2017 8:57 AM
[2017-10-30] MEDS ORDERED: SODIUM CHLORIDE 0.9% 500ML 500 ML ONE (09:07)
[2017-10-30 09:12] LABS: BAND NEUTROPHILS % (MANUAL) 7 %; EOSINOPHILS % (MANUAL) 2 % (0-7); LYMPHOCYTES % (MANUAL) 20 % (19-48); METAMYELOCYTES % (MANUAL) 3 % (0-0); MONOCYTES % (MANUAL) 13 % (3.4-9.0); MYELOCYTES % (MANUAL) 3 % (0-0); NEUTROPHILS % (MANUAL) 52 % (40-74); PLATELET ESTIMATE ADEQUATE; RBC MORPHOLOGY COMMENT NORMAL
[2017-10-30 09:13] LABS: PLATELET MORPHOLOGY COMMENT NORMAL
[2017-10-30] MEDS ORDERED: POTASSIUM CHLORIDE 20MEQ/100ML 300 ML IV ONE ×2 (14:00→15:00)
[2017-10-30] MEDS ORDERED: MAGNESIUM SULFATE 2GM/50ML 50 ML IV ONE (14:00)
[2017-10-30] MEDS ORDERED: FILGRASTIM 300 MCG/ML VIAL SC SCH (15:00)
[2017-10-30] MEDS ORDERED: FILGRASTIM 300 MCG/ML VIAL SC ONE (15:30)
[2017-10-30] MEDS ORDERED: FILGRASTIM 480 MCG/0.8 ML VIAL SC NR (15:30)
[2017-10-30] MEDS: LORAZEPAM INJ 2 MG/ML VIAL IV PRN ×2 (15:39→22:12)
[2017-10-30] MEDS: CENTRAL TPN FORMULA 1 BAG IV SCH (20:10)
[2017-10-30] MEDS ORDERED: SODIUM CHLORIDE 0.9% 250ML 250 ML ONE (21:53)
[2017-10-31] VITALS (8 sets, daily range): BP systolic 126–159; BP diastolic 74–86
[2017-10-31] MEDS: DIPHENHYDRAMINE HCL INJ 50 MG/ML VIAL IV PRN ×4 (01:24→19:49)
[2017-10-31] MEDS: LORAZEPAM INJ 2 MG/ML VIAL IV PRN ×4 (04:15→23:06)
[2017-10-31] MEDS: PIPER-TAZ 3.375 GM 50 ML IV SCH ×3 (06:37→22:15)
[2017-10-31 07:28] LABS: BASOPHILS % 0.3 % (0.0-1.0); EOSINOPHILS # (AUTO) 0.1 (0.0-0.4); EOSINOPHILS % 3.9 % (0.0-6.0); HEMATOCRIT 34.9 % (38.2-49.6); HEMOGLOBIN 11.4 g/dL (14.0-18.0); LYMPHOCYTES # (AUTO) 0.1 (1.0-3.2); LYMPHOCYTES % 4.3 % (18.0-39.1); MEAN CORPUSCULAR HEMOGLOBIN 29.8 pg (28-32); MEAN CORPUSCULAR HGB CONC 32.7 g/dL (31-35); MEAN CORPUSCULAR VOLUME 91.1 fL (81-99); MONOCYTES # (AUTO) 0.5 (0.2-0.8); MONOCYTES % 17.1 % (4.4-11.3); NEUTROPHILS # (AUTO) 2.2 (2.1-6.9); NEUTROPHILS % 73.7 % (38.7-80.0); PLATELET COUNT 98 x10e3/uL (140-360); RED BLOOD COUNT 3.83 x10e6/uL (4.3-5.7); RED CELL DISTRIBUTION WIDTH 24.2 % (11.7-14.4)
[2017-10-31 07:47] LABS: ANION GAP 12.2 mmol/L (8-16); BLOOD UREA NITROGEN 12 mg/dL (7-26); BUN/CREATININE RATIO 11 (6-25); CALCIUM 9.5 mg/dL (8.4-10.2); CARBON DIOXIDE 28 mmol/L (22-29); CHLORIDE 103 mmol/L (98-107); CREATININE, SERUM 1.05 mg/dL (0.72-1.25); EST GLOMERULAR FILTRATION RATE > 60 ML/MIN (60-); GLUCOSE 107 mg/dL (74-118); POTASSIUM 3.2 mmol/L (3.5-5.1); SODIUM 140 mmol/L (136-145)
[2017-10-31] MEDS ORDERED: POTASSIUM CHLORIDE 20MEQ/100ML 200 ML IV ONE (08:30)
--- NOTE | 2017-10-31 08:59 | Diagnostic Imaging Report ---
EXAM: Abdomen 4 Views, including upright and decubitus INDICATION: Small bowel obstruction \S\sbo \[id number] \S\[id number] COMPARISON: KUB 10/29/2017, CT abdomen and pelvis 10/29/2017 FINDINGS: NG/T2 with tip overlying the gastric body. Mild of stool in the colon. Mildly improved dilatation of small bowel with persistent air-fluid level. For example, the small bowel has a diameter of 4 cm compared to 5.3 cm on prior exams. No renal calculi. No abnormal soft tissue masses. Minimal degenerative changes in the lumbar spine and pelvis. IMPRESSION: Mildly improved small bowel obstruction. No pneumoperitoneum. Signed by: Dr. Winnie Short M.D. on 10/31/2017 8:55 AM
[2017-10-31] MEDS ORDERED: SODIUM CHLORIDE 0.9% 500ML 500 ML ONE (09:48)
[2017-10-31 10:29] LABS: BAND NEUTROPHILS % (MANUAL) 27 %; EOSINOPHILS % (MANUAL) 2 % (0-7); LYMPHOCYTES % (MANUAL) 6 % (19-48); METAMYELOCYTES % (MANUAL) 7 % (0-0); MONOCYTES % (MANUAL) 13 % (3.4-9.0); NEUTROPHILS % (MANUAL) 45 % (40-74)
[2017-10-31 10:30] LABS: ANISOCYTOSIS SLIGHT; PLATELET ESTIMATE SLIGHTLY DECREASED; PLATELET MORPHOLOGY COMMENT NORMAL; RBC MORPHOLOGY COMMENT ABNORMAL
--- NOTE | 2017-10-31 14:43 | Discharge Summary ---
NO DICTATION, LENGTH 2 SECONDS. MERRICK CRANE MD Job#: [id number]
--- NOTE | 2017-10-31 14:58 | History and Physical ---
HISTORY OF PRESENT ILLNESS: Patient is a 47-year-old male with past medical history positive for ulcerative colitis apparently, he has got a colostomy from prior abdominal surgery, came to the hospital with abdominal pain. REVIEW OF SYSTEMS: CARDIOVASCULAR: No chest pain, no palpitation. RESPIRATORY: No shortness of breath, no cough. GASTROINTESTINAL: He had no nausea, but he had abdominal pain. No vomiting, no diarrhea. GENITOURINARY: No frequency, no dysuria. ALLERGIES: HE IS NOT ALLERGIC TO ANY MEDICATION. SOCIAL HISTORY: He does not use any alcohol. PAST MEDICAL HISTORY: Ulcerative colitis, status post colostomy. PHYSICAL EXAMINATION: VITAL SIGNS: Blood pressure 150/80, temperature , heart rate 104 per minute, respiratory rate 16 per minute, oxygen saturation 97%. LABORATORY DATA: On the lab work, we have BMP: Sodium 141, potassium 3.8, chloride 100, CO2 26, BUN 11, creatinine 0.87, glucose 104. On the CBC: White blood count 1.96, hemoglobin 12.8, hematocrit 38.5, platelet count 172,000. PT 12.5, INR 1.05, PTT 26.1. AST 55, ALT 28, total bilirubin 0.7, alkaline phosphatase 142. CT of the abdomen showed small-bowel obstruction. FINAL IMPRESSION: 1. Small-bowel obstruction. 2. Hypokalemia. 3. Hypertension. 4. Elevated liver function tests. 5. Anxiety disorder. PLAN OF TREATMENT: Continue n.p.o. Continue NG tube to suctioning. Continue IV fluids, normal saline at 125 mL an hour, Zosyn 3.375 g IV piggyback q.8h., lorazepam 2 mg at bedtime and 1 mg IV every 6 hours as needed for agitation, Dilaudid 1 mg IV q.4h. He is going to follow up with Dr. Aly Monroy, surgeon who is following the case. We are going to replace the potassium, recheck potassium and magnesium levels. Job#: [id number]
--- NOTE | 2017-10-31 15:41 | Progress Note ---
DATE: October 31, 2017 INTERNAL MEDICINE PROGRESS NOTE SUBJECTIVE: Patient is doing well. PHYSICAL EXAMINATION VITALS: Blood pressure 136/83. Temperature 97.1, heart rate 88 per minute. Respiratory rate is 16 per minute. Oxygen saturation 98%. HEART: Regular rhythm. Normal S1 and S2 sounds. LUNGS: Clear bilaterally. ABDOMEN: Soft. EXTREMITIES: No evidence of cyanosis, edema or trauma. BLOOD WORK: We have BMP with sodium 140, potassium 3.2, chloride 103, CO2 28, BUN 12, creatinine 1.05. Glucose 107. On the CBC, white blood count 3.04, hemoglobin 11.4, hematocrit 34.9, platelet count 98,000. PT 12.9, PTT 26.1, INR 1.05, AST 55, ALT 28, total bilirubin 0.7, alkaline phosphatase 142. FINAL IMPRESSION 1. Small-bowel obstruction. 2. Carcinoma of the colon with metastases. 3. Ulcerative colitis. 4. Anemia. 5. Leukopenia. 6. Hypokalemia. PLAN OF TREATMENT 1. Continue n.p.o. status. 2. Continue NG tube to suctioning. 3. Replace the potassium. 4. Continue Dilaudid 1 mg IV q.4 h. as needed. 1. Lorazepam 2 mg at bedtime and 1 mg IV q.6 h. as needed for anxiety. 2. Benadryl 25 mg IV q.4 h. as needed. 3. Continue TPN. 4. We are going to recheck the potassium and magnesium levels tomorrow. Job#: [id number]
[2017-10-31] MEDS: CENTRAL TPN FORMULA 1 BAG IV SCH (20:13)
[2017-11-01] VITALS (8 sets, daily range): BP systolic 134–168; BP diastolic 66–96
[2017-11-01] MEDS: DIPHENHYDRAMINE HCL INJ 50 MG/ML VIAL IV PRN ×2 (00:43→09:13)
[2017-11-01] MEDS: LORAZEPAM INJ 2 MG/ML VIAL IV PRN ×3 (05:09→21:56)
[2017-11-01] MEDS: PIPER-TAZ 3.375 GM 50 ML IV SCH ×3 (06:24→21:55)
[2017-11-01 06:53] LABS: ANION GAP 13.5 mmol/L (8-16); BLOOD UREA NITROGEN 10 mg/dL (7-26); BUN/CREATININE RATIO 10 (6-25); CALCIUM 9.8 mg/dL (8.4-10.2); CARBON DIOXIDE 25 mmol/L (22-29); CHLORIDE 110 mmol/L (98-107); CREATININE, SERUM 0.98 mg/dL (0.72-1.25); EST GLOMERULAR FILTRATION RATE > 60 ML/MIN (60-); GLUCOSE 104 mg/dL (74-118); POTASSIUM 3.5 mmol/L (3.5-5.1); SODIUM 145 mmol/L (136-145)
--- NOTE | 2017-11-01 09:06 | Diagnostic Imaging Report ---
PROCEDURE:ABDOMEN COMP INCL UPR OR DECUB TECHNIQUE:Upright and supine AP views abdomen INDICATION:Bowel obstruction COMPARISON:Patients [facility], CT, CT ABDOMEN/PELVIS W, 10/29/2017, 8:45. Patients [facility], DX, ABDOMEN-1VIEW (KUB), 10/29/2017, 10:54. Patients [facility], DX, ABDOMEN COMP INCL UPR OR DECUB, 10/31/2017, 7:44. FINDINGS: Nasogastric tube tip at gastric body. Persistent small bowel distention with multiple air-fluid levels consistent with bowel obstruction. No conspicuous pneumatosis or pneumoperitoneum. CONCLUSION: Findings consistent with small bowel obstruction unchanged relative to October 31, 2017. Dictated by: Buck Browning M.D. on 11/01/2017 at 9:09 Electronically approved by: Buck Browning M.D. on 11/01/2017 at 9:09
[2017-11-01] MEDS ORDERED: CENTRAL TPN FORMULA 1 BAG IV SCH (09:22)
[2017-11-01] MEDS ORDERED: POTASSIUM CHLORIDE 10MEQ/100ML 200 ML IV ONE (09:45)
[2017-11-01] MEDS ORDERED: SODIUM CHLORIDE 0.9% 500ML 500 ML ONE (10:54)
[2017-11-01] MEDS ORDERED: DIATRIZOATE MEGL/DIATRIZOA SOD 120 ML BTL PO ONE (11:33)
[2017-11-01] MEDS ORDERED: HYDROMORPHONE 1MG/1ML INJ IV PRN (13:30)
[2017-11-01] MEDS: HYDROMORPHONE 2MG/ML 2 MG/ML ML IV PRN ×2 (13:44→16:59)
--- NOTE | 2017-11-01 14:03 | Consultation ---
DATE OF CONSULTATION: October 29, 2017 HEMATOLOGY-ONCOLOGY CONSULTATION REFERRING PHYSICIAN: Dr. Rj Galan. HISTORY OF PRESENT ILLNESS: Michael Miller is a 47-year-old male who was referred to [facility] for evaluation of partial bowel obstruction. The patient is known to me since May 2017. The patient was referred to [facility] for evaluation of anemia. The patient in the past had ulcerative colitis. The patient was seen by [facility] in 2013. The patient had an adenoma which had high-grade dysplasia, which was on November 17, 2013. The patient was suggested a total colectomy. However, the patient did not undergo a total colectomy. Subsequently in May of 2017, the patient was found to have massive intraperitoneal metastases. The patient subsequently had any ileostomy, has been treated with systemic chemotherapy consisting FOLFOX-4, and the patient now has increasing CEA. I have called Dr. Johnson for a KRAS mutation. SOCIAL HISTORY: Noncontributory. FAMILY HISTORY: Noncontributory. ALLERGIES REPORTED: None. MEDICATIONS AT THIS TIME: 1. Zosyn. 2. Sodium chloride. 3. Lorazepam. 4. Diphenhydramine. REVIEW OF SYSTEMS: HEENT: Normal. CARDIAC: Normal. RESPIRATORY: Normal. GI: Massive intraperitoneal metastases, ulcerative colitis since age 13, status post an ileostomy. : Normal. MUSCULOSKELETAL: Normal. SKIN AND BREASTS: Normal. NEUROENDOCRINE: Normal. PHYSICAL EXAMINATION: GENERAL: A large-built male, tall. No palpable adenopathy. HEART: Within normal limits. LUNGS: Clear. ABDOMEN: Is obese. Nasogastric tube is seen. Ileostomy is empty. RECTAL: Exam deferred. CENTRAL NERVOUS SYSTEM: Essentially normal. LABORATORY DATA: Shows a hemoglobin of 12.8, hematocrit of 38.5, white count of 1900, platelets are reported at 172,000. Absolute neutrophil count is only 800. Chemistry shows a sodium of 135, potassium 2.9, chloride is 96, CO2 26, calcium 9.8, magnesium low at 1.2. SGOT 60, SGPT 30, alkaline phosphatase 154. Total protein 7.2, albumin 3.4. Globulin is 3.8. IMPRESSION: 1. Anemia. 2. Neutropenia. 3. Thrombocytopenia. 4. Peritoneal metastases. 5. Partial bowel obstruction. 6. Hypokalemia. 7. Hypoalbuminemia. 8. High liver function test. PLAN, COMMENTS AND SUGGESTIONS: Suggest to continue nasogastric suction. New potassium supplement. TPN. I have called Dr. Johnson for KRAS mutation. Job#: [id number] EV cc:MD ALLIE LIZARRAGA MD
[2017-11-02] VITALS: BP 126/77
[2017-11-02] MEDS: DIPHENHYDRAMINE HCL INJ 50 MG/ML VIAL IV PRN ×2 (02:28→08:18)
[2017-11-02 04:00] VITALS: BP 143/93
[2017-11-02] MEDS: LORAZEPAM INJ 2 MG/ML VIAL IV PRN ×3 (04:13→22:33)
[2017-11-02] MEDS: PIPER-TAZ 3.375 GM 50 ML IV SCH ×3 (06:33→21:43)
[2017-11-02 08:00] VITALS: BP 135/76
[2017-11-02] MEDS: HYDROMORPHONE 2MG/ML 2 MG/ML ML IV PRN ×3 (10:14→21:44)
[2017-11-02] MEDS ORDERED: CENTRAL TPN FORMULA 1 BAG IV SCH (10:30)
[2017-11-02 12:00] VITALS: BP 163/97
[2017-11-02 16:00] VITALS: BP 155/99
--- NOTE | 2017-11-02 16:09 | Diagnostic Imaging Report ---
EXAM: SMALL BOWEL FOLLOW THROUGH INDICATION: \S\small bowel obstruction. Subtotal colectomy with right lower quadrant ileostomy. History of ulcerative colitis with dysplastic changes. Evaluate for possible metastatic disease to small bowel. COMPARISON: [facility] 11/01/2017. 10/31/2017. 10/29/2017. CT abdomen and pelvis 10/29/2017. 06/21/2017. TECHNIQUE: Small bowel follow through exam was performed using oral Gastrografin. Supply Person KUB was obtained before the administration of contrast and serial overhead images were obtained after administration of oral Gastrografin. Fluoroscopy was performed and spot images were obtained RADIATION DOSE: Fluoroscopy Time: 0.6 min Dose Area Product: 7.252 Gycm2 Air Kerma ([place]) : 21.39 mGy FINDINGS: CHEMISTRY ASSOCIATE: NG tube in the stomach. Small bowel loops in the left upper quadrant measures up to 6.3 cm in diameter. Air is seen in the right colon. Paucity of air with mild stool in the left colon. STOMACH: Limited and unremarkable. Persistent contrast in the stomach even after 4 hours with persistent reflux identified. This may be secondary to the NG tube in place. DUODENUM: Bulb and sweep are normal. Duodenal-jejunal junction is in the normal expected position. SMALL BOWEL: Motility: Within normal limits. Mucosa: Unremarkable. Distensibility: Normal. Distribution: Normal. Transit time: Contrast reaches small bowel loops of the right abdomen. TERMINAL ILEUM: Normal. IMPRESSION: 1. Findings consistent with partial small bowel obstruction with delayed transit time and dilated small bowel loops. Oral contrast has not reached the right lower quadrant ostomy x 4 hours time. 2. Persistent oral contrast of the stomach even at 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 Signed by: Dr. Efren Siu M.D. on 11/02/2017 4:05 PM
--- NOTE | 2017-11-02 19:34 | Diagnostic Imaging Report ---
PROCEDURE:ABDOMEN COMP INCL UPR OR DECUB INDICATION:Small bowel obstruction. COMPARISON:Patients [facility], CT, CT ABDOMEN/PELVIS W, 10/29/2017, 8:45. Patients [facility], DX, SMALL BOWEL SERIES, 11/01/2017, 11:17. FINDINGS: Unchanged enteric tube. Persistent mildly dilated loops of small bowel are noted in the left abdomen, with maximal measurement of 4.5 cm. Oral contrast is noted in right-sided bowel loops, which are normal in caliber. The. No pneumoperitoneum. Bibasilar atelectatic changes. No acute bony abnormalities. No abnormal calcifications.. CONCLUSION: 1. Persistent mildly dilated air-filled loops of small bowel in the left abdomen, measuring approximately 4.5 cm, suggesting mild small bowel obstruction Ayden Ritchie M.D. Dictated by: Ayden Ritchie M.D. on 11/02/2017 at 19:37 Electronically approved by: Ayden Ritchie M.D. on 11/02/2017 at 19:37
[2017-11-02 20:00] VITALS: BP 155/94
[2017-11-02] MEDS: CENTRAL TPN FORMULA 1 BAG IV SCH (21:16)
[2017-11-03] VITALS (8 sets, daily range): BP systolic 139–161; BP diastolic 90–102
[2017-11-03] MEDS: DIPHENHYDRAMINE HCL INJ 50 MG/ML VIAL IV PRN ×6 (00:08→22:45)
[2017-11-03] MEDS: HYDROMORPHONE 2MG/ML 2 MG/ML ML IV PRN ×3 (02:42→10:32)
[2017-11-03] MEDS: LORAZEPAM INJ 2 MG/ML VIAL IV PRN ×3 (05:43→18:21)
[2017-11-03] MEDS: PIPER-TAZ 3.375 GM 50 ML IV SCH ×3 (05:43→22:10)
[2017-11-03 06:39] LABS: ALANINE AMINOTRANSFERASE 15 IU/L (0-55); ALBUMIN/GLOBULIN RATIO 0.7 (0.8-2.0); ALKALINE PHOSPHATASE 162 IU/L (40-150); ANION GAP 14.6 mmol/L (8-16); BLOOD UREA NITROGEN 14 mg/dL (7-26); BUN/CREATININE RATIO 14 (6-25); CALCIUM 9.8 mg/dL (8.4-10.2); CARBON DIOXIDE 24 mmol/L (22-29); CHLORIDE 106 mmol/L (98-107); EST GLOMERULAR FILTRATION RATE > 60 ML/MIN (60-); GLUCOSE 107 mg/dL (74-118); POTASSIUM 3.6 mmol/L (3.5-5.1); SODIUM 141 mmol/L (136-145)
[2017-11-03] MEDS: TRAMADOL/APAP 37.5MG-325MG TAB PO PRN ×2 (14:45→23:00)
[2017-11-03] MEDS: CENTRAL TPN FORMULA 1 BAG IV SCH (20:26)
[2017-11-04] VITALS (7 sets, daily range): BP systolic 136–153; BP diastolic 89–99
[2017-11-04] MEDS: LORAZEPAM INJ 2 MG/ML VIAL IV PRN ×4 (00:21→21:20)
[2017-11-04] MEDS: DIPHENHYDRAMINE HCL INJ 50 MG/ML VIAL IV PRN ×6 (02:35→22:17)
[2017-11-04] MEDS: TRAMADOL/APAP 37.5MG-325MG TAB PO PRN ×3 (05:08→18:58)
[2017-11-04] MEDS: PIPER-TAZ 3.375 GM 50 ML IV SCH ×3 (05:52→22:13)
[2017-11-04 07:38] LABS: ANION GAP 13.7 mmol/L (8-16); BLOOD UREA NITROGEN 16 mg/dL (7-26); BUN/CREATININE RATIO 19 (6-25); CALCIUM 9.9 mg/dL (8.4-10.2); CARBON DIOXIDE 22 mmol/L (22-29); CHLORIDE 105 mmol/L (98-107); CREATININE, SERUM 0.86 mg/dL (0.72-1.25); EST GLOMERULAR FILTRATION RATE > 60 ML/MIN (60-); GLUCOSE 119 mg/dL (74-118); POTASSIUM 3.7 mmol/L (3.5-5.1); SODIUM 137 mmol/L (136-145)
[2017-11-04 07:43] LABS: HEMATOCRIT 33.4 % (38.2-49.6); RED BLOOD COUNT 3.71 x10e6/uL (4.3-5.7)
[2017-11-04 07:44] LABS: BASOPHILS % 0.9 % (0.0-1.0); EOSINOPHILS % 2.1 % (0.0-6.0); LYMPHOCYTES % 2.5 % (18.0-39.1); MEAN CORPUSCULAR HEMOGLOBIN 29.6 pg (28-32); MEAN CORPUSCULAR HGB CONC 32.9 g/dL (31-35); MONOCYTES % 18.6 % (4.4-11.3); NEUTROPHILS # (AUTO) 4.8 (2.1-6.9); NEUTROPHILS % 62.6 % (38.7-80.0); PLATELET COUNT 118 x10e3/uL (140-360); RED CELL DISTRIBUTION WIDTH 23.1 % (11.7-14.4)
[2017-11-04 07:45] LABS: BASOPHILS # (AUTO) 0.1 (0.0-0.1); EOSINOPHILS # (AUTO) 0.2 (0.0-0.4); LYMPHOCYTES # (AUTO) 0.2 (1.0-3.2); MONOCYTES # (AUTO) 1.4 (0.2-0.8)
[2017-11-04] MEDS: CENTRAL TPN FORMULA 1 BAG IV SCH (20:53)
[2017-11-05] VITALS: BP 150/101
[2017-11-05] MEDS: DIPHENHYDRAMINE HCL INJ 50 MG/ML VIAL IV PRN ×6 (02:35→23:51)
[2017-11-05 04:00] VITALS: BP 145/90
[2017-11-05] MEDS: LORAZEPAM INJ 2 MG/ML VIAL IV PRN ×4 (04:40→22:30)
[2017-11-05] MEDS: PIPER-TAZ 3.375 GM 50 ML IV SCH (06:12)
[2017-11-05 08:22] VITALS: BP 144/89
[2017-11-05 10:15] VITALS: BP 144/89
[2017-11-05] MEDS: D5NS/KCL 20MEQ 1,000 ML IV SCH ×2 (11:25→23:51)
[2017-11-05] MEDS: TRAMADOL/APAP 37.5MG-325MG TAB PO PRN ×2 (15:39→21:52)
[2017-11-05 16:00] VITALS: BP 157/97
[2017-11-05 21:00] VITALS: BP 165/98
[2017-11-05] MEDS: LISINOPRIL 10 MG TAB PO SCH (21:00)
[2017-11-05] MEDS: METHOCARBAMOL 500 MG TAB PO SCH (22:44)
[2017-11-05] MEDS ORDERED: HYDROMORPHONE 2MG/ML 2 MG/ML ML IV PRN (23:30)
[2017-11-05] MEDS ORDERED: HYDROMORPHONE 1MG/1ML INJ ONE (23:43)
[2017-11-05] MEDS: CENTRAL TPN FORMULA 1 BAG IV SCH (23:50)
[2017-11-06] VITALS (8 sets, daily range): BP systolic 142–163; BP diastolic 88–97
[2017-11-06] MEDS: HYDROMORPHONE 1MG/1ML INJ IV PRN ×6 (02:51→23:14)
[2017-11-06] MEDS: DIPHENHYDRAMINE HCL INJ 50 MG/ML VIAL IV PRN ×4 (03:51→20:08)
[2017-11-06] MEDS: TRAMADOL/APAP 37.5MG-325MG TAB PO PRN (03:52)
[2017-11-06] MEDS: LORAZEPAM INJ 2 MG/ML VIAL IV PRN ×3 (04:43→18:17)
--- NOTE | 2017-11-06 08:45 | Diagnostic Imaging Report ---
EXAMINATION: ABDOMEN ACUTE SERIES W/PA CXR 11/06/2017 8:00 AM COMPARISON: Multiple priors, most recently 11/02/2017 and 11/01/2017. INDICATION: Abdominal pain DISCUSSION: 2 views of the abdomen (AP supine and upright) One additional PA view of the chest. Left chest wall port catheter has its tip at the confluence of the brachiocephalic veins. There are low lung volumes with bibasilar atelectasis. Persistent diffuse dilatation of the small bowel loops, measuring up to 8.5 cm. Elongated air-fluid levels are present on the upright view. No residual contrast is identified. No evidence of pneumoperitoneum. No abnormal calcifications projected over the urinary tracts. IMPRESSION: Findings consistent with at least partial small bowel obstruction. There are persistently dilated small bowel loops and air-fluid levels. Of note, enteric contrast from small bowel follow-through from 11/01/2017 is no longer present. No pneumoperitoneum. Hemant Salas MD Signed by: Dr. Hemant Salas M.D. on 11/06/2017 8:42 AM
[2017-11-06] MEDS: METHOCARBAMOL 500 MG TAB PO SCH ×3 (09:00→20:08)
[2017-11-06] MEDS: LISINOPRIL 10 MG TAB PO SCH (11:50)
[2017-11-06] MEDS: D5NS/KCL 20MEQ 1,000 ML IV SCH (14:59)
[2017-11-06] MEDS ORDERED: HYDROMORPHONE 1MG/1ML INJ IV ONE (19:00)
[2017-11-06] MEDS ORDERED: LISINOPRIL 10 MG TAB PO SCH (21:00)
[2017-11-07] VITALS: BP 128/78
[2017-11-07] MEDS: DIPHENHYDRAMINE HCL INJ 50 MG/ML VIAL IV PRN ×6 (00:45→22:10)
[2017-11-07] MEDS: LORAZEPAM INJ 2 MG/ML VIAL IV PRN ×4 (00:45→20:49)
[2017-11-07] MEDS: HYDROMORPHONE 1MG/1ML INJ IV PRN ×7 (02:15→23:58)
[2017-11-07] MEDS: D5NS/KCL 20MEQ 1,000 ML IV SCH (02:23)
[2017-11-07 04:00] VITALS: BP 156/88
[2017-11-07] MEDS: METHOCARBAMOL 500 MG TAB PO SCH ×3 (08:21→20:49)
[2017-11-07] MEDS: LISINOPRIL 10 MG TAB PO SCH (08:21)
[2017-11-07 08:24] VITALS: BP 154/80
[2017-11-07 08:37] LABS: BASOPHILS # (AUTO) 0.1 (0.0-0.1); BASOPHILS % 0.5 % (0.0-1.0); EOSINOPHILS # (AUTO) 0.1 (0.0-0.4); EOSINOPHILS % 0.7 % (0.0-6.0); HEMATOCRIT 34.5 % (38.2-49.6); HEMOGLOBIN 11.6 g/dL (14.0-18.0); LYMPHOCYTES # (AUTO) 0.5 (1.0-3.2); LYMPHOCYTES % 3.3 % (18.0-39.1); MEAN CORPUSCULAR HEMOGLOBIN 29.5 pg (28-32); MEAN CORPUSCULAR HGB CONC 33.6 g/dL (31-35); MEAN CORPUSCULAR VOLUME 87.8 fL (81-99); MONOCYTES # (AUTO) 1.4 (0.2-0.8); MONOCYTES % 9.5 % (4.4-11.3); NEUTROPHILS # (AUTO) 11.2 (2.1-6.9); NEUTROPHILS % 78.3 % (38.7-80.0); PLATELET COUNT 161 x10e3/uL (140-360); RED BLOOD COUNT 3.93 x10e6/uL (4.3-5.7); RED CELL DISTRIBUTION WIDTH 22.8 % (11.7-14.4)
[2017-11-07 09:00] LABS: ALBUMIN 2.8 g/dL (3.5-5.0); ALBUMIN/GLOBULIN RATIO 0.6 (0.8-2.0); ANION GAP 18.2 mmol/L (8-16); CALCIUM 11.8 mg/dL (8.4-10.2); CREATININE, SERUM 1.61 mg/dL (0.72-1.25); POTASSIUM 4.2 mmol/L (3.5-5.1)
[2017-11-07 09:24] LABS: BAND NEUTROPHILS % (MANUAL) 4 %; LYMPHOCYTES % (MANUAL) 3 % (19-48); MONOCYTES % (MANUAL) 14 % (3.4-9.0); MYELOCYTES % (MANUAL) 1 % (0-0); NEUTROPHILS % (MANUAL) 77 % (40-74); PLATELET ESTIMATE ADEQUATE; PLATELET MORPHOLOGY COMMENT NORMAL; RBC MORPHOLOGY COMMENT NORMAL
[2017-11-07 12:00] VITALS: BP 135/84
[2017-11-07] MEDS: SODIUM CHLORIDE 0.9% 1000ML 1,000 ML IV SCH ×3 (12:50→20:04)
[2017-11-07 16:09] VITALS: BP 158/94
[2017-11-07] MEDS ORDERED: HYDROMORPHONE 1MG/1ML INJ IV ONE (18:00)
[2017-11-07 20:00] VITALS: BP 136/91
[2017-11-08] VITALS (51 sets, daily range): BP systolic 72–157; BP diastolic 15–101
[2017-11-08] MEDS: DIPHENHYDRAMINE HCL INJ 50 MG/ML VIAL IV PRN (02:41)
[2017-11-08] MEDS: SODIUM CHLORIDE 0.9% 1000ML 1,000 ML IV SCH ×7 (02:41→23:00)
[2017-11-08] MEDS: HYDROMORPHONE 1MG/1ML INJ IV PRN ×4 (03:12→09:26)
[2017-11-08] MEDS: LORAZEPAM INJ 2 MG/ML VIAL IV PRN ×3 (04:02→17:22)
[2017-11-08 06:28] LABS: BASOPHILS % 0.3 % (0.0-1.0); EOSINOPHILS # (AUTO) 0.1 (0.0-0.4); EOSINOPHILS % 0.6 % (0.0-6.0); HEMOGLOBIN 11.8 g/dL (14.0-18.0); LYMPHOCYTES # (AUTO) 0.3 (1.0-3.2); LYMPHOCYTES % 2.4 % (18.0-39.1); MEAN CORPUSCULAR HEMOGLOBIN 29.8 pg (28-32); MEAN CORPUSCULAR HGB CONC 32.8 g/dL (31-35); MEAN CORPUSCULAR VOLUME 90.9 fL (81-99); MONOCYTES % 7.2 % (4.4-11.3); NEUTROPHILS # (AUTO) 11.3 (2.1-6.9); NEUTROPHILS % 83.6 % (38.7-80.0); PLATELET COUNT 167 x10e3/uL (140-360); RED BLOOD COUNT 3.96 x10e6/uL (4.3-5.7); RED CELL DISTRIBUTION WIDTH 22.5 % (11.7-14.4)
[2017-11-08 07:03] LABS: ANION GAP 18.1 mmol/L (8-16); CREATININE, SERUM 1.77 mg/dL (0.72-1.25); POTASSIUM 4.1 mmol/L (3.5-5.1)
[2017-11-08 08:38] LABS: ALBUMIN 2.7 g/dL (3.5-5.0); BILIRUBIN,DIRECT 1.2 mg/dL (0.0-0.5)
[2017-11-08] MEDS: LISINOPRIL 10 MG TAB PO SCH (09:00)
[2017-11-08] MEDS: METHOCARBAMOL 500 MG TAB PO SCH ×2 (09:00→14:23)
[2017-11-08 09:40] LABS: BAND NEUTROPHILS % (MANUAL) 3 %; LYMPHOCYTES % (MANUAL) 2 % (19-48); METAMYELOCYTES % (MANUAL) 2 % (0-0); MONOCYTES % (MANUAL) 3 % (3.4-9.0); NEUTROPHILS % (MANUAL) 90 % (40-74)
[2017-11-08 09:51] LABS: PLATELET MORPHOLOGY COMMENT NORMAL
[2017-11-08 09:52] LABS: PLATELET ESTIMATE ADEQUATE; POIKILOCYTOSIS SLIGHT; POLYCHROMASIA FEW; RBC MORPHOLOGY COMMENT ABNORMAL
[2017-11-08 09:53] LABS: ANISOCYTOSIS MODERATE
[2017-11-08] MEDS ORDERED: HETASTARCH 6%/NACL INJ 500 ML ONE ×2 (13:52→15:02)
[2017-11-08] MEDS ORDERED: HEPARIN SOD/SOD CHLORIDE 1,000 ML ONE (14:13)
[2017-11-08] MEDS ORDERED: FENTANYL CITRATE/PF 100MCG/2 ML INJ ONE (14:49)
[2017-11-08] MEDS ORDERED: MIDAZOLAM HCL 2 MG/2 ML VIAL ONE ×3 (14:49→19:05)
[2017-11-08] MEDS ORDERED: ACETAMINOPHEN 1000 MG/100 ML IV PRN (15:30)
[2017-11-08] MEDS: FENTANYL CITRATE INJ 2,000 MCG in SODIUM CHLORIDE 0.9% 250ML 210 ML IV SCH ×4 (16:15→17:15)
[2017-11-08 16:34] LABS: ABG PCO2 37 mmHg (41-51); ABG PH 7.39 (7.31-7.41); ABG PO2 64 mmHg (80-105)
[2017-11-08 16:35] LABS: ABG HCO3 22 mmol/L (23-28)
[2017-11-08] MEDS: SODIUM CHLORIDE 0.9% 250ML IRRIG IR SCH ×3 (17:22→23:00)
[2017-11-08] MEDS: PANTOPRAZOLE 40 MG 10ML VIAL IV SCH (17:22)
[2017-11-08] MEDS ORDERED: CEFOXITIN 1GM/ DEXTROSE 50ML 50 ML IV SCH (18:00)
[2017-11-08] MEDS: CEFOXITIN SOD 1 GM VIAL IV SCH ×2 (18:05→23:00)
[2017-11-08] MEDS ORDERED: CEFOXITIN SOD 1 GM VIAL ONE (18:11)
[2017-11-08] MEDS ORDERED: PHENYLEPHRINE HCL 1% 10 MG/ML VIAL ONE (18:11)
[2017-11-08] MEDS ORDERED: ONDANSETRON HCL INJ 2 MG/ML VIAL ONE (18:11)
[2017-11-08] MEDS ORDERED: VASOPRESSIN INJ 20 UNIT/ML VIAL ONE (18:11)
[2017-11-08] MEDS ORDERED: PROPOFOL IV EMULSION 10 MG/ML 20 ML VIAL ONE (18:11)
[2017-11-08] MEDS ORDERED: EPHEDRINE SULFATE INJ 50 MG/10 ML SYR ONE (18:11)
[2017-11-08] MEDS ORDERED: SEVOFLURANE INHAL SOLN 250 ML PEN BTL ONE (18:11)
[2017-11-08] MEDS ORDERED: ROCURONIUM BROMIDE 10 MG/ML 5ML VIAL ONE (18:11)
[2017-11-08] MEDS ORDERED: DEXAMETHASONE SOD PHOS INJ 4 MG/ML VIAL ONE (18:11)
[2017-11-08] MEDS ORDERED: LIDOCAINE HCL 2% LOCAL INJ 5 ML SDV VIAL INJ ONE (18:11)
[2017-11-08] MEDS: MIDAZOLAM HCL 25 MG in SODIUM CHLORIDE 0.9% 50ML 45 ML IV SCH ×2 (19:50→22:15)
--- NOTE | 2017-11-08 19:50 | Diagnostic Imaging Report ---
EXAMINATION: CHEST SINGLE (PORTABLE) INDICATION: \S\intubated \[id number] \S\[id number] COMPARISON: 10/29/2017 and 11/06/2017 FINDINGS: AP view TUBES and LINES: Left chest wall port with tip overlying the SVC. Endotracheal tube tip projects approximately 5.5 cm above the anjana. NG/OG-tube extends below the diaphragm out of the field of view. LUNGS: Lungs are well inflated. Patchy opacities throughout the right lung and left lung base. PLEURA: Hazy bibasilar opacities likely representing layering effusions. No pneumothorax.. HEART AND MEDIASTINUM: The cardiomediastinal silhouette is unremarkable. BONES AND SOFT TISSUES: No acute osseous lesion. Soft tissues are unremarkable. UPPER ABDOMEN: No free air under the diaphragm. IMPRESSION: Lines and tubes as above. Opacities throughout the right lung and left lung base with small bilateral pleural effusions. Given the abrupt change from 11/06/2017, findings may reflect asymmetric pulmonary edema or hemorrhage. Multifocal pneumonia remains in the differential. Signed by: DR. Kel Hernandez MD on 11/08/2017 7:46 PM
[2017-11-08] MEDS ORDERED: SODIUM CHLORIDE 0.9% 1000ML 1,000 ML IV SCH (20:30)
--- NOTE | 2017-11-08 20:40 | Consultation ---
DATE OF CONSULTATION: November 08, 2017 PULMONARY CONSULTATION REASON FOR CONSULTATION: ICU management. HPI: Mr. Miller is a 47-year-old male who initially presented on October 29, 2017, with the complaint of nausea, vomiting and found to be a small-bowel obstruction. Patient has a history of ulcerative colitis. The patient is known to Dr. Ribeiro since May of 2017. He had a high-grade adenoma in 2013. He was suggested a total colectomy. However, he did not undergo colectomy. In May of 2017, the patient was found to have intraperitoneal mets. He is on chemotherapy. Patient underwent exploratory laparotomy and small-bowel resection. Bypass ileostomy was done. 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 Postoperatively, the patient is intubated, tachycardic. He is on a mechanical ventilator with FIO2 of 70% and PEEP of zero. REVIEW OF SYSTEMS: Unable to elicit any as the patient is intubated and sedated. PAST MEDICAL HISTORY: Ulcerative colitis. PAST SURGICAL HISTORY: None. FAMILY HISTORY AND SOCIAL HISTORY: Does not smoke. Does not drink. PHYSICAL EXAMINATION VITAL SIGNS: Temperature 97.6, pulse of 127, blood pressure 119/79, respiratory rate of 40. He is on mechanical ventilator with FIO2 of 70%, PEEP of 8 and tidal volume 480. HEENT: Head is atraumatic and normocephalic. NECK: Supple. The patient is intubated. CHEST: Crackles. Chest with decreased air entry bilaterally. HEART: S1 and S2 audible. ABDOMEN: Soft. EXTREMITIES: No clubbing, cyanosis or edema. NEUROLOGIC: He is sedated and intubated. LABS: Sodium 133, potassium 4.1, chloride 94, BUN 40, creatinine 1.7 and was 1.6 yesterday. White count of 13,000, hemoglobin 11.8 and platelets 167,000. Total bilirubin is high. INR is 1.05. ASSESSMENT AND PLAN: Mr. Miller is a 47-year-old male who underwent exploratory laparotomy and found to have peritoneal carcinomatosis. Patient underwent small bowel resection with ileostomy. Currently, intubated and sedated. CURRENT PROBLEMS 1. Acute hypoxic respiratory failure postoperatively. 2. Metastatic colon cancer. 3. Acute kidney injury. 4. Circulatory shock. PLAN 1. I will start the patient on IV fentanyl and Versed. Keep the patient on ventilator. Ventilator settings reviewed and changed. The FIO2 is down to 70%. Increase the PEEP to 8. 2. Central line placement. 3. The patient is on cefoxitin and will be continued. 4. ABG reviewed. Ventilator settings changed. Critical care time spent 45 minutes. Job#: [id number] RI
--- NOTE | 2017-11-08 21:11 | Diagnostic Imaging Report ---
Non-tunneled Central Venous Catheter Placement 11/08/2017 Pre-Procedure Diagnosis: Multiorgan failure Post-procedure Diagnosis:Multiorgan failure Patient Safety Attendant: Arvind Browning Sales And Service Change Leader: None Sedation: None. 1% lidocaine local anesthesia. Estimate blood loss: <5 mL Blood administered: None Complications: None Implants/Grafts: 16 cm 7-Greek 3 lumen CVC Specimen: None Procedure: Informed consent was obtained and the patient positioned supine in the ICU. A timeout was performed, followed by preliminary ultrasound of the right internal jugular vein (see findings below). The right neck was prepped and draped in standard fashion. Using real-time ultrasound guidance a 18 gauge vascular needle was used to access the right internal jugular vein. An image was stored in the electronic medical record. A wire was advanced while monitoring the patient's cardiac rhythm and the needle exchanged for a non-tunneled central venous catheter using Seldinger technique. At the end of the procedure the catheter was flushed, secured to the skin and a sterile dressing applied. The patient tolerated the procedure well and without immediate complication. Findings: Patent right internal jugular vein as demonstrated by normal ultrasound compressibility. Impression: Successful placement of a non-tunneled right internal jugular central venous catheter using ultrasound guidance. This report was generated with voice-recognition technology. Errors in family dentist can occur. Please interpret accordingly and contact a radiologist if there are any questions regarding the report. Signed by: Dr. Buck Browning M.D. on 11/08/2017 9:07 PM
--- NOTE | 2017-11-08 21:11 | Diagnostic Imaging Report ---
Non-tunneled Central Venous Catheter Placement 11/08/2017 Pre-Procedure Diagnosis: Multiorgan failure Post-procedure Diagnosis:Multiorgan failure Website Project Manager: Arvind Browning Money Manager: None Sedation: None. 1% lidocaine local anesthesia. Estimate blood loss: <5 mL Blood administered: None Complications: None Implants/Grafts: 16 cm 7-Thai 3 lumen CVC Specimen: None Procedure: Informed consent was obtained and the patient positioned supine in the ICU. A timeout was performed, followed by preliminary ultrasound of the right internal jugular vein (see findings below). The right neck was prepped and draped in standard fashion. Using real-time ultrasound guidance a 18 gauge vascular needle was used to access the right internal jugular vein. An image was stored in the electronic medical record. A wire was advanced while monitoring the patient's cardiac rhythm and the needle exchanged for a non-tunneled central venous catheter using Seldinger technique. At the end of the procedure the catheter was flushed, secured to the skin and a sterile dressing applied. The patient tolerated the procedure well and without immediate complication. Findings: Patent right internal jugular vein as demonstrated by normal ultrasound compressibility. Impression: Successful placement of a non-tunneled right internal jugular central venous catheter using ultrasound guidance. This report was generated with voice-recognition technology. Errors in medical insurance collector can occur. Please interpret accordingly and contact a radiologist if there are any questions regarding the report. Signed by: Dr. Buck Browning M.D. on 11/08/2017 9:07 PM
[2017-11-08] MEDS: NOREPINEPHRINE INJ 4MG/4ML 8 MG in DEXTROSE 5% 250ML 250 ML IV SCH (21:40)
[2017-11-08] MEDS: PROPOFOL IV EMULSION 10MG/ML 100 ML IV PRN (22:05)
--- NOTE | 2017-11-08 22:05 | Diagnostic Imaging Report ---
EXAM: CHEST SINGLE (PORTABLE), AP 1 view INDICATION: Central line placement COMPARISON: AP view the chest November 08, 2017 at 1918 hours FINDINGS: LINES/TUBES: Interval placement of right internal jugular vein central line with tip terminating at the expected location of the proximal superior vena cava. Stable position of left subclavian chest port and nasal/orogastric tube. The endotracheal tube terminates 6 cm above the anjana. LUNGS: Stable bilateral airspace opacities. PLEURA: Suspected small bilateral pleural effusions. HEART AND MEDIASTINUM: Stable appearance given rotation. BONES AND SOFT TISSUES: No acute findings. IMPRESSION: Interval placement of right internal jugular vein central line with tip at the expected location of the proximal superior vena cava. No pneumothorax. Signed by: Dr. Nicki De Leon M.D. on 11/08/2017 10:01 PM
[2017-11-08] MEDS: METRONIDAZOLE 500MG/NS 100ML 100 ML IV SCH (23:00)
[2017-11-09] VITALS (124 sets, daily range): BP systolic 78–252; BP diastolic 34–248
[2017-11-09] MEDS: MIDAZOLAM HCL 25 MG in SODIUM CHLORIDE 0.9% 50ML 45 ML IV SCH ×5 (00:30→20:37)
[2017-11-09] MEDS: FENTANYL CITRATE INJ 2,000 MCG in SODIUM CHLORIDE 0.9% 250ML 210 ML IV SCH ×2 (02:08→16:00)
[2017-11-09] MEDS: PROPOFOL IV EMULSION 10MG/ML 100 ML IV PRN ×4 (02:25→19:00)
[2017-11-09] MEDS: SODIUM CHLORIDE 0.9% 250ML IRRIG IR SCH ×6 (03:45→23:00)
[2017-11-09] MEDS: SODIUM CHLORIDE 0.9% 1000ML 1,000 ML IV SCH ×4 (04:35→23:00)
[2017-11-09] MEDS ORDERED: NOREPINEPHRINE 8 MG/D5W 250 ML 250 ML ONE (04:40)
[2017-11-09] MEDS: NOREPINEPHRINE INJ 4MG/4ML 8 MG in DEXTROSE 5% 250ML 250 ML IV SCH (04:55)
[2017-11-09] MEDS: PIPER-TAZ 3.375 GM 50 ML IV SCH ×4 (05:01→17:41)
[2017-11-09] MEDS: CEFOXITIN SOD 1 GM VIAL IV SCH (05:04)
[2017-11-09] MEDS: METRONIDAZOLE 500MG/NS 100ML 100 ML IV SCH ×3 (06:05→22:40)
[2017-11-09 06:06] LABS: BASOPHILS % 0.1 % (0.0-1.0); EOSINOPHILS % 0.3 % (0.0-6.0); HEMATOCRIT 28.8 % (38.2-49.6); HEMOGLOBIN 9.4 g/dL (14.0-18.0); LYMPHOCYTES # (AUTO) 0.2 (1.0-3.2); MEAN CORPUSCULAR HEMOGLOBIN 29.9 pg (28-32); MEAN CORPUSCULAR HGB CONC 32.6 g/dL (31-35); MEAN CORPUSCULAR VOLUME 91.7 fL (81-99); MONOCYTES # (AUTO) 0.3 (0.2-0.8); NEUTROPHILS # (AUTO) 9.6 (2.1-6.9); NEUTROPHILS % 93.6 % (38.7-80.0); PLATELET COUNT 137 x10e3/uL (140-360); RED BLOOD COUNT 3.14 x10e6/uL (4.3-5.7); RED CELL DISTRIBUTION WIDTH 22.9 % (11.7-14.4)
[2017-11-09 06:37] LABS: ALBUMIN 1.3 g/dL (3.5-5.0); ALBUMIN/GLOBULIN RATIO 0.4 (0.8-2.0); ANION GAP 13.1 mmol/L (8-16); CALCIUM 9.1 mg/dL (8.4-10.2); CREATININE, SERUM 2.03 mg/dL (0.72-1.25); POTASSIUM 4.1 mmol/L (3.5-5.1)
--- NOTE | 2017-11-09 06:50 | Diagnostic Imaging Report ---
EXAM: CHEST SINGLE (PORTABLE), AP 1 view INDICATION: Intubated COMPARISON: AP view of the chest November 08, 2017 FINDINGS: LINES/TUBES: Stable position of endotracheal tube, nasal/orogastric tube, left subclavian chest port and right internal jugular vein central line. LUNGS: Stable bilateral airspace opacities. PLEURA: Suspected bilateral pleural effusions. HEART AND MEDIASTINUM: Stable BONES AND SOFT TISSUES: Stable IMPRESSION: No interval change. Signed by: Dr. Nicki De Leon M.D. on 11/09/2017 6:47 AM
[2017-11-09 09:48] LABS: ANISOCYTOSIS SLIGHT; BAND NEUTROPHILS % (MANUAL) 8 %; HYPOCHROMASIA SLIGHT; LYMPHOCYTES % (MANUAL) 2 % (19-48); METAMYELOCYTES % (MANUAL) 1 % (0-0); MONOCYTES % (MANUAL) 2 % (3.4-9.0); MYELOCYTES % (MANUAL) 1 % (0-0); NEUTROPHILS % (MANUAL) 86 % (40-74); PLATELET ESTIMATE SLIGHTLY DECREASED; PLATELET MORPHOLOGY COMMENT FEW GIANT; POIKILOCYTOSIS SLIGHT; RBC MORPHOLOGY COMMENT NORMAL
[2017-11-09 10:16] LABS: CLARITY,URINE MUCOUS (CLEAR); COLOR,URINE STRAW (YELLOW); LEUKOCYTE ESTERASE ,URINE NEGATIVE (NEGATIVE)
[2017-11-09 10:17] LABS: BILIRUBIN,URINE 1+ (NEGATIVE); KETONES,URINE NEGATIVE (NEGATIVE); NITRITE,URINE NEGATIVE (NEGATIVE); PROTEIN,URINE DIPSTICK 2+ (NEGATIVE); URINE UROBILINOGEN 0.2 mg/dL (0.2 - 1)
[2017-11-09 10:20] LABS: ABG PCO2 36 mmHg (41-51); ABG PH 7.36 (7.31-7.41); ABG PO2 104 mmHg (80-105)
[2017-11-09 10:22] LABS: ABG HCO3 21 mmol/L (23-28)
[2017-11-09 10:30] LABS: AMORPHOUS SEDIMENT,URINE MODERATE (FEW); BACTERIA,URINE MANY /HPF; RBC,URINE 0-5 /HPF (0-5)
[2017-11-09] MEDS: NOREPINEPHRINE 8 MG/D5W 250 ML 250 ML IV SCH ×2 (11:48→22:57)
[2017-11-09] MEDS ORDERED: BUMETANIDE INJ 0.25MG/ML 4ML VIAL IV ONE (16:00)
[2017-11-09] MEDS: BUMETANIDE 10 MG in SODIUM CHLORIDE 0.9% 100 ML 60 ML IV SCH ×3 (16:00→23:55)
--- NOTE | 2017-11-09 16:15 | Consultation ---
DATE OF CONSULTATION: November 09, 2017 RENAL CONSULTATION REASON FOR CONSULTATION: Acute kidney injury. HISTORY OF PRESENT ILLNESS: This is a 47-year-old unfortunate gentleman with history of colon cancer, status post hemicolectomy and colostomy, and came in again with abdominal pain, had a laparotomy done with evidence of metastatic disease. Please see surgery operative report. He is currently intubated, sedated, with 3 pressors including propofol on dopamine 24 mcg to maintain his blood pressure. He is in severe shock. He was diagnosed with high-grade adenoma in 2014. He did not initially undergo a total colectomy which was recommended, had a bypass ileostomy. This time was found to have peritoneal carcinomatosis. Currently in respiratory failure, sedated. Unable to get any history or review of systems. He has history of apparent ulcerative colitis. No prior history of any renal insufficiency or kidney stone disease. Prior history of iron deficiency anemia, hypocalcemia, and apparent pericardial effusion. Today his labs show a white count 11.6, hemoglobin 9. Sodium 134. Potassium 3.5. Bicarbonate 26. Creatinine was 1.46, seems to be improving, with a total bilirubin of 0.9. Last BNP level was 73.8 on the 22 of June; so, this is not current admission. Microbiology is pending. SOCIAL HISTORY: Please see chart. FAMILY HISTORY: Not available at this point in time. CURRENT MEDICATIONS: Patient in the ICU on dopamine, normal saline at 150 mL an hour. He is on propofol, Versed. He is on Zosyn 3.375 grams IV q.6. He is on Tylenol IV q.6. p.r.n., which has been stopped. Received cefoxitin earlier. He is on Phenergan p.r.n. basis. PHYSICAL EXAMINATION: GENERAL: Patient remains intubated, sedated. VITALS: Blood pressure of 106/67. Art line reading 94/51 with a pulse rate 106, sinus tachy with a respiratory rate 20 and an oxygen saturation 98%. HEAD AND NECK: Pupils reactive. No icterus. Orally intubated. LUNGS: Harsh vesicular breath sounds. Air entry good bilaterally. HEART: S1 and S2 audible. ABDOMEN: Abdominal examination deferred. He has a diverting ileostomy. LOWER EXTREMITY EXAMINATION: Shows no edema. IMPRESSION: 1. Acute tubular necrosis, non-oliguric but appears fluid-overloaded. Chest CT shows evidence of bilateral infiltrates and possible bilateral pleural effusions. 2. Septic, in shock state. 3. Metastatic colon carcinoma with intraperitoneal metastasis. Overall prognosis extremely poor. Heavily sedated at this point in time. No family available. Plan on discontinuing IV normal saline. He will need TPN at some point in time. Will start Bumex drip and attempt to diurese. Monitor patient's electrolytes, kidney function, urine output with you. Job#: [id number] EV
[2017-11-09] MEDS: PANTOPRAZOLE 40 MG 10ML VIAL IV SCH (16:30)
[2017-11-09] MEDS ORDERED: VANCOMYCIN 1GM/NS 250 ML 250 ML IV ONE (16:30)
[2017-11-09] MEDS ORDERED: ACETAMINOPHEN 1000 MG/100 ML IV PRN (18:00)
[2017-11-09] MEDS ORDERED: MICAFUNGIN SODIUM 50 MG/50 ML BAG IV ONE (18:00)
[2017-11-09] MEDS ORDERED: MICAFUNGIN SODIUM 100 ML IV ONE (18:15)
[2017-11-09] MEDS: VASOPRESSIN 100 UNIT in DEXTROSE 5% 100ML 100 ML IV SCH (23:55)
[2017-11-10] VITALS (94 sets, daily range): BP systolic 94–139; BP diastolic 54–89
[2017-11-10] MEDS: PROPOFOL IV EMULSION 10MG/ML 100 ML IV PRN ×4 (00:25→21:38)
[2017-11-10] MEDS: PIPER-TAZ 3.375 GM 50 ML IV SCH ×4 (00:30→18:00)
[2017-11-10] MEDS: FENTANYL CITRATE INJ 2,000 MCG in SODIUM CHLORIDE 0.9% 250ML 210 ML IV SCH ×3 (00:30→19:27)
[2017-11-10] MEDS: MIDAZOLAM HCL 25 MG in SODIUM CHLORIDE 0.9% 50ML 45 ML IV SCH ×2 (01:50→10:34)
[2017-11-10] MEDS: NOREPINEPHRINE 8 MG/D5W 250 ML 250 ML IV SCH ×3 (03:35→14:21)
[2017-11-10] MEDS: SODIUM CHLORIDE 0.9% 250ML IRRIG IR SCH ×5 (04:00→20:39)
[2017-11-10 05:50] LABS: BASOPHILS % 0.2 % (0.0-1.0); EOSINOPHILS % 0.4 % (0.0-6.0); HEMATOCRIT 29.4 % (38.2-49.6); HEMOGLOBIN 9.8 g/dL (14.0-18.0); LYMPHOCYTES # (AUTO) 0.2 (1.0-3.2); LYMPHOCYTES % 1.7 % (18.0-39.1); MEAN CORPUSCULAR HGB CONC 33.3 g/dL (31-35); MEAN CORPUSCULAR VOLUME 89.9 fL (81-99); MONOCYTES # (AUTO) 0.5 (0.2-0.8); MONOCYTES % 4.6 % (4.4-11.3); NEUTROPHILS # (AUTO) 9.8 (2.1-6.9); NEUTROPHILS % 90.5 % (38.7-80.0); PLATELET COUNT 134 x10e3/uL (140-360); RED BLOOD COUNT 3.27 x10e6/uL (4.3-5.7); RED CELL DISTRIBUTION WIDTH 22.5 % (11.7-14.4)
[2017-11-10 06:06] LABS: ALBUMIN 1.3 g/dL (3.5-5.0); ALBUMIN/GLOBULIN RATIO 0.4 (0.8-2.0); ANION GAP 15.2 mmol/L (8-16); CALCIUM 10.8 mg/dL (8.4-10.2); CREATININE, SERUM 1.91 mg/dL (0.72-1.25); POTASSIUM 3.2 mmol/L (3.5-5.1)
[2017-11-10] MEDS: METRONIDAZOLE 500MG/NS 100ML 100 ML IV SCH ×3 (06:15→22:22)
--- NOTE | 2017-11-10 06:31 | Diagnostic Imaging Report ---
EXAM: CHEST SINGLE (PORTABLE), AP 1 view INDICATION: Intubated COMPARISON: AP view of the chest November 09, 2017 FINDINGS: LINES/TUBES: Stable position of endotracheal tube, nasal/orogastric tube, right internal jugular vein central line and left subclavian chest port. LUNGS: Slight improved aeration of the lungs. Persistent bilateral airspace opacities. PLEURA: Persistent bilateral pleural effusions. HEART AND MEDIASTINUM: Stable BONES AND SOFT TISSUES: Stable IMPRESSION: Slight improved aeration of the lungs, otherwise no significant interval change. Signed by: Dr. Nicki De Leon M.D. on 11/10/2017 6:27 AM
[2017-11-10 07:43] LABS: ANISOCYTOSIS MODERATE; BAND NEUTROPHILS % (MANUAL) 2 %; HYPOCHROMASIA SLIGHT; LYMPHOCYTES % (MANUAL) 2 % (19-48); METAMYELOCYTES % (MANUAL) 1 % (0-0); MONOCYTES % (MANUAL) 3 % (3.4-9.0); MYELOCYTES % (MANUAL) 1 % (0-0); NEUTROPHILS % (MANUAL) 91 % (40-74)
[2017-11-10 07:44] LABS: PLATELET ESTIMATE SLIGHTLY DECREASED; PLATELET MORPHOLOGY COMMENT FEW LARGE; TEAR DROP CELLS FEW
[2017-11-10 07:45] LABS: POIKILOCYTOSIS SLIGHT; RBC MORPHOLOGY COMMENT ABNORMAL
[2017-11-10] MEDS ORDERED: POTASSIUM CHLORIDE 20MEQ/100ML 200 ML IV ONE (07:45)
[2017-11-10 07:59] LABS: MAGNESIUM 1.3 MG/DL (1.3-2.1); PHOSPHORUS 6.1 MG/DL (2.3-4.7)
[2017-11-10] MEDS: SODIUM CHLORIDE 0.9% 1000ML 1,000 ML IV SCH ×3 (10:16→20:00)
--- NOTE | 2017-11-10 16:06 | Consultation ---
DATE OF CONSULTATION: November 10, 2017 REASON FOR CONSULTATION: Sepsis and recommendation for antibiotic. This patient who has been here for 12 days is a 47-year-old white male who has a history of ulcerative colitis. The patient has had colostomy abdominal wall surgery some time ago, unknown. The patient comes into the hospital here. The patient originally was admitted on October 29, 2017, with abdominal pain. He was diagnosed with small-bowel obstruction. He was made n.p.o. and NG tube was placed. Was started on Zosyn. He was seen by Dr. Ribeiro for anemia and neutropenia. He was seen by Dr. Monroy. The patient was found to have small-bowel obstruction. The patient had high-grade adenoma in 2013. In May 2017, he was found to have intraperitoneal met. He got chemotherapy and underwent total laparotomy, small-bowel resection and bypass ileostomy was done. 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 The patient is currently intubated and tachycardic. He had fever. Infectious disease was consulted. The patient apparently is a 47 year old, and he was told he had extensive ulcerative colitis, who recommended colectomy 15 years ago, but he refused. He presented in 2014 with high-grade adenocarcinoma and underwent total colectomy, bypass ileostomy. The patient is coming back with small-bowel obstruction, and apparently extensive peritoneal carcinomatosis. He was admitted. When he first came, he had a creatinine of 1.46. He was started on piperacillin/tazobactam, Zosyn and Flagyl, but he continued to have fever. Infectious disease was consulted. Patient is currently intubated and sedated. History was taken mainly from the chart and also discussed with the attending, Dr. Rj Galan, who knows him very well. REVIEW OF SYSTEMS: Could not be obtained. SOCIAL HISTORY: There is no smoking, drug abuse or alcohol use. FAMILY HISTORY: Noncontributory. PHYSICAL EXAMINATION GENERAL: He is currently alert. He is currently sedated and intubated. VITALS: Stable. Afebrile. He had fever earlier. HEENT: Normocephalic. CHEST: Few crackles. Coarse. ABDOMEN: Soft. IMPRESSION: Sepsis in a patient who has extensive adenocarcinoma. He has been here for 12 days. I am concerned about peritonitis from gram-positive cocci versus fungal. I would suggest to discontinue Zosyn and start him on vancomycin, Diflucan, cefepime, and Flagyl. Will adjust all for kidney function. Will follow. Prognosis guarded. Will follow vancomycin trough. Further recommendations to follow. Job#: [id number] RI
[2017-11-10] MEDS: PANTOPRAZOLE 40 MG 10ML VIAL IV SCH (16:44)
[2017-11-10] MEDS: VANCOMYCIN 1GM/NS 250 ML 250 ML IV SCH (16:44)
[2017-11-10] MEDS: VASOPRESSIN 100 UNIT in DEXTROSE 5% 100ML 100 ML IV SCH (18:00)
[2017-11-10] MEDS: FLUCONAZOLE 200 MG/100 ML 100 ML IV SCH (20:39)
[2017-11-10] MEDS: CEFEPIME HCL 1 GM VIAL IV SCH (20:39)
[2017-11-10] MEDS: BUMETANIDE INJ 0.25MG/ML 4ML VIAL IV SCH (22:22)
[2017-11-10] MEDS: ACETAMINOPHEN 1000 MG/100 ML IV PRN (23:49)
[2017-11-11] VITALS (99 sets, daily range): BP systolic 89–158; BP diastolic 48–94
[2017-11-11] MEDS: PIPER-TAZ 3.375 GM 50 ML IV SCH ×2 (00:11→05:19)
[2017-11-11] MEDS: SODIUM CHLORIDE 0.9% 250ML IRRIG IR SCH ×7 (00:11→23:30)
[2017-11-11] MEDS: PROPOFOL IV EMULSION 10MG/ML 100 ML IV PRN ×6 (00:58→19:04)
[2017-11-11] MEDS: SODIUM CHLORIDE 0.9% 1000ML 1,000 ML IV SCH ×4 (02:40→21:53)
[2017-11-11] MEDS: FENTANYL CITRATE INJ 2,000 MCG in SODIUM CHLORIDE 0.9% 250ML 210 ML IV SCH ×3 (03:25→19:05)
[2017-11-11] MEDS: NOREPINEPHRINE 8 MG/D5W 250 ML 250 ML IV SCH (03:55)
[2017-11-11] MEDS: VASOPRESSIN 100 UNIT in DEXTROSE 5% 100ML 100 ML IV SCH (04:26)
[2017-11-11] MEDS: BUMETANIDE INJ 0.25MG/ML 4ML VIAL IV SCH ×3 (05:19→21:47)
[2017-11-11 05:48] LABS: EOSINOPHILS # (AUTO) 0.1 (0.0-0.4); EOSINOPHILS % 1.3 % (0.0-6.0); HEMATOCRIT 26.3 % (38.2-49.6); HEMOGLOBIN 8.7 g/dL (14.0-18.0); LYMPHOCYTES # (AUTO) 0.2 (1.0-3.2); LYMPHOCYTES % 2.3 % (18.0-39.1); MEAN CORPUSCULAR HEMOGLOBIN 30.6 pg (28-32); MEAN CORPUSCULAR HGB CONC 33.1 g/dL (31-35); MEAN CORPUSCULAR VOLUME 92.6 fL (81-99); MONOCYTES # (AUTO) 0.3 (0.2-0.8); MONOCYTES % 4.8 % (4.4-11.3); NEUTROPHILS # (AUTO) 6.1 (2.1-6.9); NEUTROPHILS % 89.6 % (38.7-80.0); PLATELET COUNT 125 x10e3/uL (140-360); RED BLOOD COUNT 2.84 x10e6/uL (4.3-5.7); RED CELL DISTRIBUTION WIDTH 22.5 % (11.7-14.4)
[2017-11-11] MEDS: METRONIDAZOLE 500MG/NS 100ML 100 ML IV SCH ×3 (05:50→21:47)
[2017-11-11 06:18] LABS: ALBUMIN 1.4 g/dL (3.5-5.0); ALBUMIN/GLOBULIN RATIO 0.3 (0.8-2.0); ANION GAP 16.8 mmol/L (8-16); CALCIUM 11.2 mg/dL (8.4-10.2); CREATININE, SERUM 1.94 mg/dL (0.72-1.25)
[2017-11-11 06:21] LABS: MAGNESIUM 1.3 MG/DL (1.3-2.1); PHOSPHORUS 5.8 MG/DL (2.3-4.7)
[2017-11-11 06:34] LABS: POTASSIUM 2.8 mmol/L (3.5-5.1)
--- NOTE | 2017-11-11 06:52 | Diagnostic Imaging Report ---
EXAM: CHEST SINGLE (PORTABLE), AP 1 view INDICATION: Intubated COMPARISON: AP view of the chest November 10, 2017 FINDINGS: LINES/TUBES: Stable position of endotracheal tube, nasal/orogastric tube, right internal jugular vein and left subclavian chest port. LUNGS: Persistent bibasilar airspace opacities. PLEURA: Persistent bilateral pleural effusions. HEART AND MEDIASTINUM: Normal size and contour. BONES AND SOFT TISSUES: No acute findings. IMPRESSION: No significant interval change. Signed by: Dr. Nicki De Leon M.D. on 11/11/2017 6:48 AM
[2017-11-11] MEDS ORDERED: POTASSIUM CHLORIDE 20MEQ/100ML 300 ML IV ONE (07:00)
[2017-11-11] MEDS ORDERED: MAGNESIUM SULFATE 2GM/50ML 100 ML IV ONE (07:00)
[2017-11-11 07:54] LABS: EOSINOPHILS % (MANUAL) 1 % (0-7); HYPOCHROMASIA SLIGHT; LYMPHOCYTES % (MANUAL) 2 % (19-48); MONOCYTES % (MANUAL) 3 % (3.4-9.0); MYELOCYTES % (MANUAL) 1 % (0-0); NEUTROPHILS % (MANUAL) 93 % (40-74); PLATELET ESTIMATE SLIGHTLY DECREASED; PLATELET MORPHOLOGY COMMENT FEW LARGE
[2017-11-11 07:55] LABS: RBC MORPHOLOGY COMMENT ABNORMAL; TEAR DROP CELLS FEW
[2017-11-11 07:56] LABS: ANISOCYTOSIS SLIGHT; POIKILOCYTOSIS SLIGHT
[2017-11-11] MEDS ORDERED: DEXMEDETOMIDINE HCL 200 MCG in SODIUM CHLORIDE 0.9% 50ML 48 ML IV PRN (09:45)
[2017-11-11] MEDS: DEXMEDETOMIDINE HCL 200 MCG in SODIUM CHLORIDE 0.9% 50ML 48 ML IV PRN ×3 (10:00→19:45)
[2017-11-11] MEDS: ACETAMINOPHEN 1000 MG/100 ML IV PRN (10:44)
[2017-11-11] MEDS: MIDAZOLAM HCL 25 MG in SODIUM CHLORIDE 0.9% 50ML 45 ML IV SCH ×3 (14:56→20:45)
[2017-11-11] MEDS ORDERED: DEXTROSE 10% 1,000 ML IV PRN (16:00)
[2017-11-11] MEDS: VANCOMYCIN 1GM/NS 250 ML 250 ML IV SCH (17:40)
[2017-11-11] MEDS: PANTOPRAZOLE 40 MG 10ML VIAL IV SCH (17:40)
[2017-11-11] MEDS ORDERED: CENTRAL TPN FORMULA 1 BAG IV SCH (20:00)
[2017-11-11] MEDS: CEFEPIME HCL 1 GM VIAL IV SCH (20:32)
[2017-11-11] MEDS: FLUCONAZOLE 200 MG/100 ML 100 ML IV SCH (20:32)
[2017-11-12] VITALS (80 sets, daily range): BP systolic 81–184; BP diastolic 40–109
[2017-11-12] MEDS: MIDAZOLAM HCL 25 MG in SODIUM CHLORIDE 0.9% 50ML 45 ML IV SCH ×7 (00:23→23:45)
[2017-11-12] MEDS: SODIUM CHLORIDE 0.9% 1000ML 1,000 ML IV SCH ×4 (01:40→18:40)
[2017-11-12] MEDS: PROPOFOL IV EMULSION 10MG/ML 100 ML IV PRN ×3 (01:40→15:15)
[2017-11-12] MEDS: DEXMEDETOMIDINE HCL 200 MCG in SODIUM CHLORIDE 0.9% 50ML 48 ML IV PRN ×5 (03:08→23:45)
[2017-11-12] MEDS: NOREPINEPHRINE 8 MG/D5W 250 ML 250 ML IV SCH ×2 (03:09→11:00)
[2017-11-12] MEDS: SODIUM CHLORIDE 0.9% 250ML IRRIG IR SCH ×5 (03:10→19:39)
[2017-11-12] MEDS: METRONIDAZOLE 500MG/NS 100ML 100 ML IV SCH ×3 (05:49→21:30)
[2017-11-12] MEDS: BUMETANIDE INJ 0.25MG/ML 4ML VIAL IV SCH ×3 (05:49→21:00)
--- NOTE | 2017-11-12 06:15 | Diagnostic Imaging Report ---
EXAM: CHEST SINGLE (PORTABLE), AP 1 view INDICATION: Intubated COMPARISON: AP view of the chest November 11, 2017 FINDINGS: LINES/TUBES: Stable support lines and tubes LUNGS: Persistent by basilar atelectasis PLEURA: Persistent bilateral pleural effusions HEART AND MEDIASTINUM: Stable BONES AND SOFT TISSUES: No acute findings. IMPRESSION: No interval change Signed by: Dr. Nicki De Leon M.D. on 11/12/2017 6:11 AM
[2017-11-12 06:18] LABS: ALBUMIN 1.3 g/dL (3.5-5.0); ALBUMIN/GLOBULIN RATIO 0.3 (0.8-2.0); ANION GAP 12.6 mmol/L (8-16); CALCIUM 11.5 mg/dL (8.4-10.2); CREATININE, SERUM 1.44 mg/dL (0.72-1.25); MAGNESIUM 1.6 MG/DL (1.3-2.1); PHOSPHORUS 3.7 MG/DL (2.3-4.7); POTASSIUM 2.6 mmol/L (3.5-5.1)
[2017-11-12] MEDS ORDERED: MAGNESIUM SULFATE 2GM/50ML 50 ML IV ONE (06:30)
[2017-11-12] MEDS ORDERED: MAGNESIUM SULF 1GRAM/DEXTROSE 200 ML IV ONE (06:45)
[2017-11-12] MEDS: POTASSIUM CHLORIDE 20MEQ/100ML 100 ML IV SCH ×4 (09:15→14:49)
[2017-11-12] MEDS: LORAZEPAM INJ 2 MG/ML VIAL IV PRN (10:03)
[2017-11-12] MEDS: HALOPERIDOL 5 MG TAB PO PRN (10:03)
[2017-11-12] MEDS: FENTANYL CITRATE INJ 2,000 MCG in SODIUM CHLORIDE 0.9% 250ML 210 ML IV SCH ×2 (11:09→17:44)
[2017-11-12] MEDS ORDERED: CENTRAL TPN FORMULA 1 BAG IV SCH (14:48)
[2017-11-12] MEDS: PANTOPRAZOLE 40 MG 10ML VIAL IV SCH (16:10)
[2017-11-12] MEDS: VANCOMYCIN 1GM/NS 250 ML 250 ML IV SCH (16:40)
[2017-11-12 16:43] LABS: ANION GAP 14.9 mmol/L (8-16); CALCIUM 11.8 mg/dL (8.4-10.2); CREATININE, SERUM 1.3 mg/dL (0.72-1.25); MAGNESIUM 2.1 MG/DL (1.3-2.1); POTASSIUM 3.9 mmol/L (3.5-5.1)
[2017-11-12] MEDS: ACETAMINOPHEN 1000 MG/100 ML IV PRN (19:00)
[2017-11-12] MEDS: CEFEPIME HCL 1 GM VIAL IV SCH (21:00)
[2017-11-12] MEDS: VASOPRESSIN 100 UNIT in DEXTROSE 5% 100ML 100 ML IV SCH (21:00)
[2017-11-12] MEDS: FLUCONAZOLE 200 MG/100 ML 100 ML IV SCH (21:54)
[2017-11-13] VITALS (66 sets, daily range): BP systolic 73–185; BP diastolic 33–95
[2017-11-13] MEDS: FENTANYL CITRATE INJ 2,000 MCG in SODIUM CHLORIDE 0.9% 250ML 210 ML IV SCH ×4 (00:39→21:36)
[2017-11-13] MEDS ORDERED: ACETAMINOPHEN 1000 MG/100 ML IV PRN (01:30)
[2017-11-13] MEDS: SODIUM CHLORIDE 0.9% 250ML IRRIG IR SCH ×7 (01:41→23:30)
[2017-11-13] MEDS: PROPOFOL IV EMULSION 10MG/ML 100 ML IV PRN ×3 (01:58→16:20)
[2017-11-13] MEDS: SODIUM CHLORIDE 0.9% 1000ML 1,000 ML IV SCH ×4 (03:19→21:03)
[2017-11-13] MEDS: DEXMEDETOMIDINE HCL 200 MCG in SODIUM CHLORIDE 0.9% 50ML 48 ML IV PRN ×2 (04:16→21:46)
[2017-11-13] MEDS: MIDAZOLAM HCL 25 MG in SODIUM CHLORIDE 0.9% 50ML 45 ML IV SCH ×7 (04:32→22:40)
[2017-11-13] MEDS: METRONIDAZOLE 500MG/NS 100ML 100 ML IV SCH ×3 (05:54→22:04)
[2017-11-13] MEDS: BUMETANIDE INJ 0.25MG/ML 4ML VIAL IV SCH ×2 (05:54→15:28)
[2017-11-13 07:54] LABS: ALANINE AMINOTRANSFERASE 18 IU/L (0-55); ALBUMIN 1.3 g/dL (3.5-5.0); ALBUMIN/GLOBULIN RATIO 0.3 (0.8-2.0); ALKALINE PHOSPHATASE 355 IU/L (40-150); ANION GAP 13.1 mmol/L (8-16); BLOOD UREA NITROGEN 30 mg/dL (7-26); BUN/CREATININE RATIO 24 (6-25); CALCIUM 11.5 mg/dL (8.4-10.2); CARBON DIOXIDE 29 mmol/L (22-29); CHLORIDE 108 mmol/L (98-107); CREATININE, SERUM 1.24 mg/dL (0.72-1.25); EST GLOMERULAR FILTRATION RATE > 60 ML/MIN (60-); GLUCOSE 164 mg/dL (74-118); MAGNESIUM 1.5 MG/DL (1.3-2.1); PHOSPHORUS 3.6 MG/DL (2.3-4.7); POTASSIUM 3.1 mmol/L (3.5-5.1); SODIUM 147 mmol/L (136-145)
[2017-11-13] MEDS: LORAZEPAM INJ 2 MG/ML VIAL IV PRN (08:20)
[2017-11-13] MEDS: HALOPERIDOL 5 MG TAB PO PRN (09:48)
[2017-11-13] MEDS: NOREPINEPHRINE 8 MG/D5W 250 ML 250 ML IV SCH (11:00)
[2017-11-13 12:49] LABS: BASOPHILS % 0.4 % (0.0-1.0); EOSINOPHILS # (AUTO) 0.1 (0.0-0.4); EOSINOPHILS % 1.8 % (0.0-6.0); HEMATOCRIT 22.9 % (38.2-49.6); HEMOGLOBIN 7.5 g/dL (14.0-18.0); LYMPHOCYTES # (AUTO) 0.2 (1.0-3.2); LYMPHOCYTES % 6.2 % (18.0-39.1); MEAN CORPUSCULAR HEMOGLOBIN 30.6 pg (28-32); MEAN CORPUSCULAR HGB CONC 32.8 g/dL (31-35); MEAN CORPUSCULAR VOLUME 93.5 fL (81-99); MONOCYTES # (AUTO) 0.2 (0.2-0.8); MONOCYTES % 8.4 % (4.4-11.3); NEUTROPHILS # (AUTO) 2.2 (2.1-6.9); NEUTROPHILS % 79.2 % (38.7-80.0); PLATELET COUNT 102 x10e3/uL (140-360); RED BLOOD COUNT 2.45 x10e6/uL (4.3-5.7); RED CELL DISTRIBUTION WIDTH 21.2 % (11.7-14.4)
[2017-11-13] MEDS ORDERED: POTASSIUM CHLORIDE 20MEQ/100ML 200 ML IV ONE (14:00)
[2017-11-13] MEDS ORDERED: MAGNESIUM SULFATE 2GM/50ML 50 ML IV ONE (14:00)
[2017-11-13] MEDS ORDERED: POTASSIUM CHLORIDE 20MEQ/100ML 200 ML ONE (14:03)
[2017-11-13] MEDS: ZIPRASIDONE 20 MG VIAL IM PRN (16:54)
[2017-11-13] MEDS: PANTOPRAZOLE 40 MG 10ML VIAL IV SCH (18:03)
[2017-11-13] MEDS: VASOPRESSIN 100 UNIT in DEXTROSE 5% 100ML 100 ML IV SCH (18:03)
[2017-11-13] MEDS: EYE LUBRICANT OPTH OINT 3.5GM TUBE OP SCH (18:36)
[2017-11-13] MEDS: VANCOMYCIN 1GM/NS 250 ML 250 ML IV SCH (18:48)
[2017-11-13] MEDS ORDERED: CENTRAL TPN FORMULA IV SCH (20:00)
[2017-11-13] MEDS: CEFEPIME HCL 1 GM VIAL IV SCH (20:57)
[2017-11-13] MEDS ORDERED: BUMETANIDE INJ 0.25MG/ML 4ML VIAL ONE (21:01)
[2017-11-13] MEDS: FLUCONAZOLE 200 MG/100 ML 100 ML IV SCH (21:03)
[2017-11-13] MEDS: FUROSEMIDE INJ 10 MG/ML 4 ML VIAL IV SCH (21:19)
[2017-11-14] VITALS (83 sets, daily range): BP systolic 72–171; BP diastolic 39–98
[2017-11-14] MEDS: MIDAZOLAM HCL 25 MG in SODIUM CHLORIDE 0.9% 50ML 45 ML IV SCH ×9 (00:42→23:52)
[2017-11-14] MEDS: SODIUM CHLORIDE 0.9% 250ML IRRIG IR SCH ×6 (03:31→23:52)
[2017-11-14] MEDS: SODIUM CHLORIDE 0.9% 1000ML 1,000 ML IV SCH ×2 (04:00→10:40)
[2017-11-14] MEDS: FENTANYL CITRATE INJ 2,000 MCG in SODIUM CHLORIDE 0.9% 250ML 210 ML IV SCH ×4 (04:12→23:52)
[2017-11-14] MEDS: DEXMEDETOMIDINE HCL 200 MCG in SODIUM CHLORIDE 0.9% 50ML 48 ML IV PRN ×5 (04:13→22:31)
[2017-11-14] MEDS: METRONIDAZOLE 500MG/NS 100ML 100 ML IV SCH ×3 (05:13→21:42)
[2017-11-14 05:42] LABS: EOSINOPHILS % 1.6 % (0.0-6.0); HEMATOCRIT 19.9 % (38.2-49.6); LYMPHOCYTES # (AUTO) 0.1 (1.0-3.2); LYMPHOCYTES % 6.9 % (18.0-39.1); MEAN CORPUSCULAR HEMOGLOBIN 30.5 pg (28-32); MEAN CORPUSCULAR HGB CONC 32.2 g/dL (31-35); MEAN CORPUSCULAR VOLUME 94.8 fL (81-99); MONOCYTES # (AUTO) 0.2 (0.2-0.8); NEUTROPHILS # (AUTO) 1.4 (2.1-6.9); NEUTROPHILS % 72.4 % (38.7-80.0); PLATELET COUNT 87 x10e3/uL (140-360); RED CELL DISTRIBUTION WIDTH 20.9 % (11.7-14.4)
[2017-11-14 05:55] LABS: HEMOGLOBIN 6.4 g/dL (14.0-18.0)
--- NOTE | 2017-11-14 06:01 | Diagnostic Imaging Report ---
EXAM: CHEST SINGLE (PORTABLE), AP 1 view INDICATION: Bibasilar atelectasis COMPARISON: AP view of the chest November 12, 2017 FINDINGS: LINES/TUBES: Stable position of endotracheal tube, left subclavian chest port, right internal jugular vein and nasal/orogastric tube. LUNGS: Persistent bibasilar atelectasis. PLEURA: Persistent bilateral pleural effusions. HEART AND MEDIASTINUM: Stable BONES AND SOFT TISSUES: No acute findings. IMPRESSION: No interval change. Signed by: Dr. Nicki De Leon M.D. on 11/14/2017 5:58 AM
[2017-11-14 06:02] LABS: ALANINE AMINOTRANSFERASE 19 IU/L (0-55); ALBUMIN 1.2 g/dL (3.5-5.0); ALBUMIN/GLOBULIN RATIO 0.3 (0.8-2.0); ALKALINE PHOSPHATASE 306 IU/L (40-150); ANION GAP 12.4 mmol/L (8-16); BLOOD UREA NITROGEN 33 mg/dL (7-26); BUN/CREATININE RATIO 29 (6-25); CARBON DIOXIDE 27 mmol/L (22-29); CHLORIDE 113 mmol/L (98-107); CREATININE, SERUM 1.14 mg/dL (0.72-1.25); EST GLOMERULAR FILTRATION RATE > 60 ML/MIN (60-); GLUCOSE 166 mg/dL (74-118); POTASSIUM 3.4 mmol/L (3.5-5.1); SODIUM 149 mmol/L (136-145)
[2017-11-14] MEDS ORDERED: SODIUM CHLORIDE 0.9% 250ML 250 ML IV ONE (06:15)
[2017-11-14] MEDS ORDERED: SODIUM CHLORIDE 0.9% 250ML 250 ML ONE (07:53)
[2017-11-14 08:27] LABS: BAND NEUTROPHILS % (MANUAL) 4 %; EOSINOPHILS % (MANUAL) 1 % (0-7); LYMPHOCYTES % (MANUAL) 9 % (19-48); MONOCYTES % (MANUAL) 8 % (3.4-9.0); NEUTROPHILS % (MANUAL) 78 % (40-74)
[2017-11-14 08:28] LABS: PLATELET ESTIMATE MODERATELY DECREASED; PLATELET MORPHOLOGY COMMENT NORMAL
[2017-11-14 08:29] LABS: RBC MORPHOLOGY COMMENT NORMAL
[2017-11-14] MEDS: EYE LUBRICANT OPTH OINT 3.5GM TUBE OP SCH ×2 (08:45→20:36)
[2017-11-14] MEDS: FUROSEMIDE INJ 10 MG/ML 4 ML VIAL IV SCH (10:37)
[2017-11-14] MEDS: NOREPINEPHRINE 8 MG/D5W 250 ML 250 ML IV SCH (11:00)
[2017-11-14] MEDS ORDERED: POTASSIUM CHLORIDE 20MEQ/100ML 100 ML IV ONE (11:45)
[2017-11-14] MEDS: PROPOFOL IV EMULSION 10MG/ML 100 ML IV PRN ×2 (12:05→19:50)
[2017-11-14 15:34] LABS: BASOPHILS % 0.3 % (0.0-1.0); EOSINOPHILS # (AUTO) 0.1 (0.0-0.4); HEMATOCRIT 25.8 % (38.2-49.6); HEMOGLOBIN 8.3 g/dL (14.0-18.0); LYMPHOCYTES # (AUTO) 0.2 (1.0-3.2); LYMPHOCYTES % 5.1 % (18.0-39.1); MEAN CORPUSCULAR HEMOGLOBIN 30.2 pg (28-32); MEAN CORPUSCULAR HGB CONC 32.2 g/dL (31-35); MEAN CORPUSCULAR VOLUME 93.8 fL (81-99); MONOCYTES # (AUTO) 0.3 (0.2-0.8); MONOCYTES % 9.5 % (4.4-11.3); NEUTROPHILS # (AUTO) 2.1 (2.1-6.9); NEUTROPHILS % 72.6 % (38.7-80.0); RED BLOOD COUNT 2.75 x10e6/uL (4.3-5.7); RED CELL DISTRIBUTION WIDTH 20.2 % (11.7-14.4)
[2017-11-14 15:36] LABS: PLATELET COUNT 98 x10e3/uL (140-360)
[2017-11-14] MEDS: PANTOPRAZOLE 40 MG 10ML VIAL IV SCH (15:42)
[2017-11-14] MEDS: VANCOMYCIN 1GM/NS 250 ML 250 ML IV SCH (15:42)
[2017-11-14 15:54] LABS: ANION GAP 13.7 mmol/L (8-16); BLOOD UREA NITROGEN 36 mg/dL (7-26); BUN/CREATININE RATIO 32 (6-25); CALCIUM 12.6 mg/dL (8.4-10.2); CARBON DIOXIDE 25 mmol/L (22-29); CHLORIDE 114 mmol/L (98-107); CREATININE, SERUM 1.14 mg/dL (0.72-1.25); EST GLOMERULAR FILTRATION RATE > 60 ML/MIN (60-); GLUCOSE 168 mg/dL (74-118); MAGNESIUM 1.7 MG/DL (1.3-2.1); POTASSIUM 3.7 mmol/L (3.5-5.1); SODIUM 149 mmol/L (136-145)
[2017-11-14] MEDS ORDERED: DEXTROSE 5% 1,000 ML IV ONE (16:15)
--- NOTE | 2017-11-14 18:11 | Diagnostic Imaging Report ---
EXAM: US CHEST (INCL MEDIASTINUM) DATE: 11/13/2017 12:00 AM Time stamp on exam: 1737 hours INDICATION: Effusion COMPARISON: Chest x-ray on 11/14/2017 FINDINGS: Right thoracoabdominal junction and left thoracoabdominal junction demonstrate small right pleural effusion and moderate left pleural effusion with deepest pocket of fluid from the rib cage measuring approximately 10 cm at the left lung base. IMPRESSION: Bilateral pleural effusions left greater than right. Signed by: Dr. Dragan Patel M.D. on 11/14/2017 6:08 PM
[2017-11-14] MEDS: VASOPRESSIN 100 UNIT in DEXTROSE 5% 100ML 100 ML IV SCH (19:47)
[2017-11-14] MEDS ORDERED: CENTRAL TPN FORMULA IV SCH (20:00)
[2017-11-14] MEDS: CEFEPIME HCL 1 GM VIAL IV SCH (20:33)
[2017-11-14] MEDS: FLUCONAZOLE 200 MG/100 ML 100 ML IV SCH (20:33)
[2017-11-15] VITALS (92 sets, daily range): BP systolic 72–158; BP diastolic 40–103
[2017-11-15] MEDS: PROPOFOL IV EMULSION 10MG/ML 100 ML IV PRN ×3 (01:20→09:30)
[2017-11-15] MEDS: DEXMEDETOMIDINE HCL 200 MCG in SODIUM CHLORIDE 0.9% 50ML 48 ML IV PRN ×2 (01:43→08:59)
[2017-11-15] MEDS: SODIUM CHLORIDE 0.9% 250ML IRRIG IR SCH ×5 (04:45→20:11)
[2017-11-15] MEDS: METRONIDAZOLE 500MG/NS 100ML 100 ML IV SCH ×3 (05:22→21:02)
[2017-11-15 05:31] LABS: BASOPHILS % 0.3 % (0.0-1.0); EOSINOPHILS # (AUTO) 0.1 (0.0-0.4); EOSINOPHILS % 2.1 % (0.0-6.0); HEMOGLOBIN 7.9 g/dL (14.0-18.0); LYMPHOCYTES # (AUTO) 0.1 (1.0-3.2); LYMPHOCYTES % 4.1 % (18.0-39.1); MEAN CORPUSCULAR HEMOGLOBIN 29.7 pg (28-32); MEAN CORPUSCULAR HGB CONC 31.6 g/dL (31-35); MONOCYTES # (AUTO) 0.2 (0.2-0.8); MONOCYTES % 8.3 % (4.4-11.3); NEUTROPHILS # (AUTO) 2.1 (2.1-6.9); NEUTROPHILS % 72.1 % (38.7-80.0); PLATELET COUNT 95 x10e3/uL (140-360); RED BLOOD COUNT 2.66 x10e6/uL (4.3-5.7); RED CELL DISTRIBUTION WIDTH 20.6 % (11.7-14.4)
[2017-11-15 05:59] LABS: ALANINE AMINOTRANSFERASE 20 IU/L (0-55); ALBUMIN 1.3 g/dL (3.5-5.0); ALBUMIN/GLOBULIN RATIO 0.3 (0.8-2.0); ALKALINE PHOSPHATASE 301 IU/L (40-150); ANION GAP 14.9 mmol/L (8-16); BLOOD UREA NITROGEN 42 mg/dL (7-26); BUN/CREATININE RATIO 35 (6-25); CARBON DIOXIDE 25 mmol/L (22-29); CHLORIDE 116 mmol/L (98-107); EST GLOMERULAR FILTRATION RATE > 60 ML/MIN (60-); GLUCOSE 166 mg/dL (74-118); POTASSIUM 3.9 mmol/L (3.5-5.1); SODIUM 152 mmol/L (136-145)
[2017-11-15 06:01] LABS: CALCIUM 13.1 mg/dL (8.4-10.2)
--- NOTE | 2017-11-15 06:28 | Diagnostic Imaging Report ---
EXAM: CHEST SINGLE (PORTABLE), AP 1 view INDICATION: Ventilated COMPARISON: AP view of the chest November 14, 2017 FINDINGS: LINES/TUBES: Stable support lines and tubes LUNGS: Bibasilar atelectasis. PLEURA: Small right and enlarging left pleural effusion. HEART AND MEDIASTINUM: Stable appearance BONES AND SOFT TISSUES: No acute findings. IMPRESSION: Increasing left pleural effusion, otherwise no significant interval change. Signed by: Dr. Nicki De Leon M.D. on 11/15/2017 6:24 AM
[2017-11-15 07:23] LABS: BAND NEUTROPHILS % (MANUAL) 5 %; EOSINOPHILS % (MANUAL) 1 % (0-7); LYMPHOCYTES % (MANUAL) 6 % (19-48); METAMYELOCYTES % (MANUAL) 5 % (0-0); MONOCYTES % (MANUAL) 5 % (3.4-9.0); MYELOCYTES % (MANUAL) 3 % (0-0); NEUTROPHILS % (MANUAL) 76 % (40-74); PLATELET ESTIMATE SLIGHTLY DECREASED; PLATELET MORPHOLOGY COMMENT NORMAL
[2017-11-15 07:24] LABS: ANISOCYTOSIS SLIGHT; HYPOCHROMASIA SLIGHT; RBC MORPHOLOGY COMMENT NORMAL
[2017-11-15] MEDS ORDERED: DEXTROSE 5% 1,000 ML IV ONE ×3 (08:00→08:15)
[2017-11-15] MEDS ORDERED: DEXTROSE 10% 1,000 ML IV SCH (08:15)
[2017-11-15] MEDS: EYE LUBRICANT OPTH OINT 3.5GM TUBE OP SCH ×2 (10:08→20:11)
[2017-11-15] MEDS: NOREPINEPHRINE 8 MG/D5W 250 ML 250 ML IV SCH (10:36)
[2017-11-15] MEDS ORDERED: MORPHINE SULFATE INJ 4 MG/ML INJ IV PRN (13:00)
[2017-11-15] MEDS: LORAZEPAM INJ 2 MG/ML VIAL IV PRN ×2 (13:18→15:45)
[2017-11-15] MEDS: MORPHINE SULFATE 2 MG/ML SYR IV PRN ×4 (13:30→21:45)
[2017-11-15] MEDS ORDERED: SODIUM CHLORIDE 0.9% 250ML 250 ML ONE (14:38)
[2017-11-15] MEDS ORDERED: CENTRAL TPN FORMULA 1 BAG IV SCH (15:15)
[2017-11-15] MEDS: VASOPRESSIN 100 UNIT in DEXTROSE 5% 100ML 100 ML IV SCH (17:55)
[2017-11-15] MEDS: VANCOMYCIN 1GM/NS 250 ML 250 ML IV SCH (18:13)
[2017-11-15] MEDS: PANTOPRAZOLE 40 MG 10ML VIAL IV SCH (18:13)
[2017-11-15] MEDS: FLUCONAZOLE 200 MG/100 ML 100 ML IV SCH (20:11)
[2017-11-15] MEDS: ZIPRASIDONE 20 MG VIAL IM PRN (20:13)
[2017-11-15] MEDS: PROMETHAZINE HCL (IM) 25 MG/ML VIAL IV PRN (20:14)
[2017-11-15] MEDS ORDERED: ACETAMINOPHEN 1000 MG/100 ML 100 ML IV ONE (20:34)
[2017-11-15] MEDS: CEFEPIME HCL 1 GM VIAL IV SCH (21:02)
[2017-11-16] VITALS (16 sets, daily range): BP systolic 105–131; BP diastolic 58–89
[2017-11-16] MEDS ORDERED: ACETAMINOPHEN 1000 MG/100 ML IV PRN
[2017-11-16] MEDS ORDERED: ACETAMINOPHEN 1000 MG/100 ML IV SCH
[2017-11-16] MEDS: SODIUM CHLORIDE 0.9% 250ML IRRIG IR SCH ×2 (00:23→02:19)
[2017-11-16] MEDS: MORPHINE SULFATE 2 MG/ML SYR IV PRN ×10 (00:24→23:21)
[2017-11-16] MEDS: LORAZEPAM INJ 2 MG/ML VIAL IV PRN ×3 (00:24→19:47)
[2017-11-16] MEDS: PROMETHAZINE HCL (IM) 25 MG/ML VIAL IV PRN (00:25)
[2017-11-16] MEDS: METRONIDAZOLE 500MG/NS 100ML 100 ML IV SCH (06:00)
[2017-11-16] MEDS: DEXMEDETOMIDINE HCL 200 MCG in SODIUM CHLORIDE 0.9% 50ML 48 ML IV PRN (08:19)
[2017-11-16] MEDS: EYE LUBRICANT OPTH OINT 3.5GM TUBE OP SCH (09:46)
[2017-11-16] MEDS: NOREPINEPHRINE 8 MG/D5W 250 ML 250 ML IV SCH (09:47)
[2017-11-17] VITALS (7 sets, daily range): BP systolic 87–127; BP diastolic 55–89
[2017-11-17] MEDS: LORAZEPAM INJ 2 MG/ML VIAL IV PRN ×4 (02:15→23:00)
[2017-11-17] MEDS ORDERED: ONDANSETRON HCL INJ 2 MG/ML VIAL IV STA (02:40)
[2017-11-17] MEDS: MORPHINE SULFATE 2 MG/ML SYR IV PRN ×5 (05:47→23:00)
[2017-11-18] VITALS: BP 100/64
[2017-11-18 04:00] VITALS: BP 99/56
[2017-11-18] MEDS: MORPHINE SULFATE 2 MG/ML SYR IV PRN ×4 (05:13→18:00)
[2017-11-18] MEDS: LORAZEPAM INJ 2 MG/ML VIAL IV PRN ×3 (05:13→18:00)
[2017-11-18 07:35] VITALS: BP 73/61
[2017-11-18 08:00] VITALS: BP 73/61
[2017-11-18] MEDS ORDERED: SCOPOLAMINE 1.5 MG PATCH TOP SCH (10:45)
[2017-11-18 12:00] VITALS: BP 67/49
[2017-11-18 16:07] VITALS: BP 53/37
--- NOTE | 2017-12-23 16:55 | Discharge Summary ---
SUMMARY CHIEF COMPLAINT: Hypokalemia, small bowel obstruction. FINAL DIAGNOSIS: Colorectal carcinoma with widespread metastasis. PROCEDURES: 1. Transfusion packed cells. 2. Exploratory laparotomy. 3. Central line placement. DISPOSITION: [facility]. Patient did as well 11/18/17. A 47-year-old male with known history of colon CA status post total colectomy and ileostomy, brought to the ER with a day history of progressive abdominal distention, lack of stool formation in the ostomy bag. No vomiting. Has had abdominal pain. Underwent review and evaluation in the emergency room. Evaluating his abdomen revealed diffuse tenderness to palpation. Bowel sounds were not present, and with further care patient was admitted to the facility with findings of generalized abdominal pain, small-bowel obstruction, dehydration, history of colon CA, ulcerative colitis. Will be placing NPO. Nasogastric tube placement will be made. Begin IV fluids, analgesic management. With his admission regarding his CA history, it was being followed by Dr. Ribeiro from a hematology-oncology standpoint; and with his review his impression was anemia, neutropenia, thrombocytopenia, peritoneal metastasis, partial bowel obstruction, hypokalemia, hypoalbuminemia, elevated liver functions. Recommend continuing NG-tube. Potassium supplement, begin TPN nutrition. Recommending KRAS mutation. Acute kidney injuries were being addressed by Dr. Jhaveri; and with his findings his impression was acute tubular necrosis, nonoliguric but appears fluid-overloaded. CTA of chest shows evidence of bilateral infiltrates and possible bilateral pleural effusions. Septic in shock state. Metastatic colon carcinoma with intraperitoneal metastasis. States that overall prognosis is extremely poor. Patient is currently heavily sedated. With admission the patient was on the med surg floor, and regarding the complaints upon admission he was being seen by Dr. Monroy from a general surgery standpoint, and with his evaluation his assessment was small-bowel obstruction, partial versus complete. Known to have abdominal carcinomatosis, stool obstruction could be malignant. Plan is to maintain NPO status, hydrate the patient, to maintain NG-tube status, may need surgery if no improvement. Was placed NPO, was started on Zosyn 3.375 IV q.8. Being hydrated. Given lorazepam nightly. Hydromorphone was being given 1 mg q.4 hours for pain management. Initial labs were showing the potassium to be low at 2.8. Kidney functions stable. Glucose 104. CBC: Hemoglobin of 12.8, white cell count was only 1900. Was seen by Dr. Ribeiro and was recommending treatment of Neupogen to increase the white cell count. Was now being started on total parenteral nutrition 75 mL per hour. White cell count was now at 3000. Patient was resting comfortably, was in no acute distress. Continued to be maintained on TPN. Was on analgesics. Continued to be followed by Dr. Monroy, general surgery, regarding the obstruction status. On 11/03, NG-tube was removed. Patient was tolerating p.o. fluids well. Analgesics were being adjusted. Was now up to a full liquid diet. Efforts now were being made to wean off the TPN. On 11/04/17 his white cell count was 7600. Diet once weaned off TPN was addressed to a regular diet. It was felt that his partial small-bowel obstruction was improving. Began having difficulties with his diet on 11/07/17 now that he was weaned off the TPN and he was seen not to be able to tolerate diet very well, developing severe abdominal pain after eating. CT of the abdomen was being repeated. Now on 11/08/17, due to his continued abdominal complaints and new CT findings, he was taken back to surgery on 11/08/[address] Monroy. The preoperative diagnosis was small-bowel obstruction. Postoperative was same due to carcinomatosis. Procedure was exploratory laparotomy, small-bowel resection, small-bowel bypass, and an ileostomy. There were no complications. Estimated blood loss was 150 mL. It was noted during the procedure the patient had widespread metastasis. Prognosis was noted to be grim. Was in ICU post procedure, and postop he was developing respiratory failure. Was now on respiratory support managed by Dr. Jack and Dr. Villalba and was on vent support. Continued on a central line, IV fluids. Given conscious sedation while being vented. X-rays were noted to have bilateral alveolar infiltrate, pleural effusion, circulatory shock. Continuing his ICU care, continuing intubated status and propofol drip. Kidney functions were now with a BUN 39 creatinine 2.03. Was on vasopressors for BP support. Continuing on Zosyn and Flagyl. On 11/10 patient maintained his vent status, was unresponsive, heavily sedated. Now the patient was receiving cefepime as well as vancomycin. His status was being maintained on vent support and vasopressors, Versed, fentanyl, propofol, and on 11/11 noted on comfort care, will be addressed. Patient is a terminally ill patient. Potassium had declined to 2.8. Was started on potassium replenishment. He was also being given magnesium replacement. On 11/12 his hemoglobin had trended down to 8.7. Efforts were tried to wean the patient off sedation, but the patient was noted be agitated easily. He was continuing with his magnesium and his potassium replenishment. On 11/13 his potassium was 3.1. His hemoglobin dropped further to 7.5, now being typed and crossmatched for transfusion. Hemoglobin continued to fall to 6.4. White cell count fell to 1800. Chest x-rays were showing evidence of persistent bibasilar atelectasis. His hemoglobin following transfusion was 8.3. BP continued to be supported by pressors. Now running a temperature of 100.5. Hemoglobin had dropped further down to 7.9. Patient was now noted to be status post terminal extubation. Hospice was being consulted. On 11/16 noted to be extubated but unresponsive. Still was running a temp, elevated pulse. Was continued on comfort measures. Discussion was being made to move the patient to the floor, and on 11/17 he was on the med surg floor. Noted to be following simple commands, somewhat responsive. Awaiting hospice, and on 11/18 at 3 hours, ER physician was requested to see the patient. Patient was found to have no pulse palpated. There were no breath sounds or respirations. Pupils were fixed and dilated. Time of was noted be at 2111. Made aware of the patient's demise by the nursing rubber goods supervisor. Dictated By: STU Hi Job#: [id number] CLAUDIA
--- NOTE | 2018-01-11 18:51 | Consultation ---
DATE OF CONSULTATION: October 29, 2017 SURGICAL CONSULTATION REASON FOR CONSULTATION: Small-bowel obstruction. HPI: This 47-year-old male was admitted to the hospital after presenting to the emergency room complaining of severe crampy abdominal pain, which had started within the last couple of days. The patient has an ostomy, which had not been working for the last few hours. Patient is well known to us from having had a previous exploratory laparotomy at which time he was found to have diffuse carcinomatosis of the abdominal cavity secondary to a colon cancer. At that time, he underwent an ostomy and he has been undergoing chemotherapy ever since, and had been doing relatively well up until this episode. PAST MEDICAL HISTORY: Remarkable for ulcerative colitis and the previously described colon cancer. ALLERGIES: NONE. REVIEW OF SYSTEMS: Otherwise unremarkable. MEDICATIONS: Please refer to the MAR. PHYSICAL EXAMINATION GENERAL: At time that we saw the patient revealed a male lying in bed in moderate distress complaining of some abdominal pain. VITALS: He was afebrile. His vital signs were stable. HEENT: Showed no acute inflammation. NECK: No nodes, masses or bruits. LUNGS: Clear to auscultation. HEART: Regular rate and rhythm. ABDOMEN: Soft with some mild tenderness. It was mildly distended. The patient's ostomy was not having very much output. Digital examination did not reveal any obstruction of the ostomy. EXTREMITIES: Good pulses bilaterally. ASSESSMENT: Small-bowel obstruction, partial versus complete in a patient known to have abdominal carcinomatosis. So, obstruction is very likely to be secondary to malignant spread of disease, although obviously adhesions would also be a consideration. PLAN: Will be n.p.o., hydration and NG tube. If there is no improvement, the patient may need surgery. Thank you very much for asking me to see this patient. Job#: [id number] LESLIE
--- NOTE | 2018-01-11 19:00 | Operative Report ---
DATE OF PROCEDURE: November 08, 2017 PREOPERATIVE DIAGNOSIS: Small bowel obstruction. POSTOPERATIVE DIAGNOSIS: Small bowel obstruction secondary to massive intra-abdominal carcinomatosis. OPERATIONS PERFORMED: 1. Exploratory laparotomy. 2. Extensive lysis of adhesions. 3. Small bowel resection times 2. 4. Small bowel bypass times 2. 5. Ileostomy. DIRECTOR DIGITAL CATALOGUE: BRITTANEY Escoto. ANESTHESIA: General. COMPLICATIONS: None. ESTIMATED BLOOD LOSS: 150 mL. DESCRIPTION OF PROCEDURE: With the patient lying in bed in the supine position under good general endotracheal anesthesia, the abdomen was prepped with Betadine solution and draped in the usual manner. A midline incision was made. It was carried down through the subcutaneous tissue and through the midline fascia. The peritoneum was opened and the abdomen was entered. Upon entering the abdominal cavity, immediately extensive adhesions were encountered. The patient was found to have extensive spread of cancer within the intra-abdominal cavity with multiple studdings throughout the entire small bowel that was present with multiple points of obstruction. Particularly in the pelvis there was a large amount of tumor present with loops of small bowel stuck in the pelvis which made it impossible to remove all of the disease segment. There was a couple of areas that had small pinpoint of obstruction and both of these were dealt by doing segmental resections with proximal and distal division of the bowel with a CASIMIRO 75 stapler, and then tying off the mesentery was 2-0 silk and the anastomosis was then performed with another application of CASIMIRO stapler and the remaining opening was closed with a TA60 stapler and the anastomosis was reinforced with 3-0 silk sutures. Two separate areas were done in similar fashion. There were 2 areas, however, that could not be resected because they were stuck going into the pelvis and we decided that the only thing that could be done would be to bypass this to a more distal area and so by passes were performed again with another application of CASIMIRO 75 stapler in a [id number] fashion with the remaining opening closed with a TA60 stapler and the bypasses were then reinforced with 3-0 silk. The part of the ileum that was most distal and that was amenable bringing to the outside was then brought out as an ostomy which was matured with 3-0 Vicryl sutures and the abdomen was then closed in layers. The peritoneum was closed with a running suture of number 1 Vicryl. The midline fascia was closed with a running suture of number 1 PDS and the skin was closed with clips. Dressings were applied. The sponge, lap and needle count was correct. Patient tolerated the procedure well and returned to the recovery room in stable condition. Job#: [id number] GEOVANY
== END 2017-11-18 23:38 | disposition expired | DRG 329 ==
LOC: ER 06:35 → ERHOLD 11:58 → IMCU 12:50 → OBSVTOIN 14:37 → MED/SURG 16:53 → ACU 11-08 10:36 → MED/SURG 11-08 10:37 → ICU 11-08 15:25 → MED/SURG3 11-16 13:15
PROC: 3E0336Z Introduction of Nutritional Substance into Peripheral Vein, Percutaneous Approach (ICD-10-PCS; principal; 2017-10-30)
PROC: 5A1955Z Respiratory Ventilation, Greater than 96 Consecutive Hours (ICD-10-PCS; 2017-11-08)
PROC: 0D1B0Z4 Bypass Ileum to Cutaneous, Open Approach (ICD-10-PCS; 2017-11-08)
PROC: 0DB80ZX Excision of Small Intestine, Open Approach, Diagnostic (ICD-10-PCS; 2017-11-08)
PROC: 30233N1 Transfusion of Nonautologous Red Blood Cells into Peripheral Vein, Percutaneous Approach (ICD-10-PCS; 2017-11-14)
DX: C78.6 Secondary malignant neoplasm of retroperitoneum and peritoneum (principal); N17.0 Acute kidney failure with tubular necrosis; A41.9 Sepsis, unspecified organism; R65.21 Severe sepsis with septic shock; J95.821 Acute postprocedural respiratory failure; N17.9 Acute kidney failure, unspecified; C18.9 Malignant neoplasm of colon, unspecified; D61.818 Other pancytopenia; E87.6 Hypokalemia; F41.9 Anxiety disorder, unspecified; I12.9 Hypertensive chronic kidney disease with stage 1 through stage 4 chronic kidney disease, or unspecified chronic kidney disease; N18.9 Chronic kidney disease, unspecified; D64.9 Anemia, unspecified; D70.9 Neutropenia, unspecified; D69.6 Thrombocytopenia, unspecified; E88.09 Other disorders of plasma-protein metabolism, not elsewhere classified; E83.42 Hypomagnesemia
CPT/HCPCS: 31500; 36415; 36430; 36556; 36600; 71045; 74018; 74022; 74177; 74250; 76604; 76937; 80048; 80053; 80076; 80202; 81001; 82150; 82550; 82553; 82805; 82948; 83605; 83690; 83735; 84100; 84132; 84484; 85014; 85018; 85025; 85610; 85730; 86850; 86900; 86920; 87040; 87070; 87205; 88307; 88309; 93005; 94002; 94003; 96360; 96365; 96366; 96411; 99284; C1751; J0692; J0694; J1100; J1170; J1200; J1442; J1450; J1940; J2001; J2060; J2248; J2250; J2270; J2370; J2405; J2543; J2550; J2765; J3370; J3475; J3480; J3486; J7030; J7040; J7050; J7070; P9016; Q9963; Q9967